=== PATIENT | male | born 1935 | race Caucasian/White ===

== ENCOUNTER → 2019-12-03 16:00 | Outpatient (BNVA) | payer MEDICARE, OTHER, SELFPAY | PROVIDERS: Family Provider Family Medicine; PCP Family Medicine; Referring Provider Nurse Practitioner Family; Visit Provider Orthopaedic Surgery | DX: M10.9 Gout, unspecified (principal) | CPT/HCPCS: 80500 ==

== ENCOUNTER 2021-04-09 10:28 | Emergency (ER) | payer MEDICARE, OTHER, SELFPAY ==
[2021-04-09 10:46] VITALS: BP 154/97; PULSE 70; RESP 18; TEMP 36.2; O2SAT 96; BMI 30.4
[2021-04-09] MEDS: lidocaine 1% INJ 20 mL INTRADERMA (11:26)
--- NOTE | 2021-04-09 11:40 | W.ED.EXTPRO ---
HPI - Extremity Problem General: Chief complaint: Extremity Problem,Nontraumatic Stated complaint: R HAND PAIN/SWELLING Time Seen by Provider: 04/09/21 10:37 History of Present Illness: HPI Narrative: Patient worried since with painful cyst to the right pointer finger. This area has been present for couple years it started growing really big about 6 months ago and the last week it is become very painful. He has been punctured by primary care provider with some whitish discharge and came out of it. MD Complaint: extremity pain Onset (ago): month(s) Pain Consistency: constant Location: right and upper extremity Severity scale (1-10): 8 Quality: aching Relieving factors: nothing Exacerbating factors: range of motion Associated symptoms: Reports no associated symptoms; Deny fever(s) Review of Systems Const: Denies: fever(s) or chills Skin/Breast: Reports: other (Large cyst in the right finger consistent with a mucous cyst. Rise from th) Psych: Denies: anxiety PFSH ED PFSH: Social History (Updated 12/03/19 @ 16:10 by Earle Kitchen LPN) Smoking and tobacco status: never smoked Alcohol intake: current Alcohol intake frequency: few times a month Procedures Abscess I/D Site: hand Side (if applicable): right Local Anesthetic: lidocaine 1% Amount of anesthesia used (mL): 2 Technique: incised with #11 blade Amount of fluid expressed (mL): 3 Irrigation: Yes Packing used?: none Course Vital Signs: Vital signs: Vital Signs Temperature 97.2 F L 04/09/21 10:46 Pulse Rate 70 04/09/21 10:46 Respiratory Rate 18 04/09/21 10:46 Blood Pressure 154/97 04/09/21 10:46 Pulse Oximetry 96 04/09/21 10:46 MDM - Extremity (Nontraumatic) MDM Narrative: Medical decision making narrative: Patient has a digital mucous cyst of the pointer finger of right hand. Made a laceration across the top of the cyst and retrieved a large amount of cystic whitish thick material. Patient was advised of what his diagnosis is the need to watch for signs and symptoms and of infection since that is arising from the joint itself. Patient says he understands this patient has appoint with his primary care provider on Saturday. Patient was instructed need to see a hand specialist to get this cyst removed. Discharge Plan Discharge Patient Disposition: Home Clinical Impression: Digital mucous cyst of finger of right hand Condition: Stable Prescriptions: New tramadol 50 mg tablet 50 mg PO TID PRN (Reason: pain) Qty: 7 RF: 0 No Action acetaminophen [Tylenol Extra Strength] 500 mg tablet 500 mg PO Q6H PRNRF: 0 albuterol sulfate 90 mcg/actuation aerosol powdr breath activated 2 inh INHALATION Q6H PRNRF: 0 alprazolam 0.25 mg tablet 0.25 mg PO TID PRNRF: 0 amlodipine 10 mg tablet 10 mg PO DAILY RF: 0 colchicine 0.6 mg capsule 0.6 mg PO BID PRNRF: 0 ergocalciferol (vitamin D2) [Vitamin D2] 1,250 mcg (50,000 unit) capsule 1,250 mcg PO .weekly RF: 0 hydralazine 25 mg tablet 25 mg PO TID RF: 0 lovastatin 40 mg tablet 40 mg PO DAILY RF: 0 metoprolol tartrate 25 mg tablet 25 mg PO BID RF: 0 tamsulosin [Flomax] 0.4 mg capsule 0.4 mg PO DAILY RF: 0 Discharge Orders: Discharge ED (Routine); Ordered 04/09/21 Ordered By: Jalil Thibodeaux Referrals: Susanne Gutierrez MD [Primary Care Provider] - Discharge Diet: Usual diet Discharge Activity: Increase activity as tolerated Activity Restrictions/Additional Instructions: Follow-up with medical provider as directed. Take medications as prescribed. Return to the ER or your medical provider if condition worsens. Please read and understand discharge instructions. If any questions ask please. Follow-up your primary care provider and see about getting referral to a specialist. Coding Level of Care Code ED Hotel Or Motel Room Service Supervisor for Sally Higuera
[2021-04-09] MEDS: TRAMadol 50 mg Tablet 100 MG PO (12:01)
[2021-04-09] MEDS: CELEcoxib 200 mg Capsule 400 MG PO (12:08)
== END 2021-04-09 12:15 | disposition home or self-care (01) ==
PROVIDERS: Emergency Provider Nurse Practitioner Family; PCP Family Medicine
DX: L72.8 Other follicular cysts of the skin and subcutaneous tissue (principal)
CPT/HCPCS: 26010; 99283

== ENCOUNTER 2021-08-24 10:27 | Inpatient (IN) | payer MEDICARE, OTHER, SELFPAY ==
[2021-08-24] VITALS (98 sets, daily range): BP systolic 161–192; BP diastolic 41–88; PULSE 0–131; RESP 0–30; TEMP 36.3–37.1; O2SAT 71–99
--- NOTE | 2021-08-24 10:54 | XR_ITS ---
WS: [id number] PORTABLE CHEST HISTORY: dyspnea/cough COMPARISON: None available. Lungs are clear and well expanded. No pleural effusion or pneumothorax. Cardiac size: Normal. Mediastinum/Aorta: Moderate atherosclerosis aorta. Degenerative changes at the humeral heads. Mild narrowing of the AC joints. XR/XR chest 1V portable [id number] IMPRESSION: Moderate atherosclerosis aorta. No pneumonia.
--- NOTE | 2021-08-24 12:09 | ECG_ITS ---
[facility] Test Date: 2021-08-24 Pat Name: Joao Hawley Department: Room: Gender: Male [employer] Library Director: : 1935 Requested By: Cheryl Damon Order Number: [id number] Maryan MD: Kecia Díaz M.D. Measurements Intervals [place] Rate: 22 P: 247 [place]: 114 QRS: 57 QRSD: 134 T: 4 QT: 658 QTc: 406 Interpretive Statements ATRIAL FLUTTER JUNCTIONAL BRADYCARDIA INTRAVENTRICULAR CONDUCTION DELAY [130+ ms QRS DURATION] Compared to ECG 01/15/2015 06:04:27 Intraventricular conduction delay now present Sinus bradycardia no longer present Ventricular premature complex(es) no longer present Left bundle-branch block no longer present Electronically Signed On 08-24-2021 21:58:12 DEPARTMENT EDITOR by Kecia Díaz M.D. [email or web address] [email or web address].[email or web address]/store/[id number]
[2021-08-24 12:21] LABS: Basophils # 0.1 10^3/uL (0.0-0.1); Basophils % 0.6 %; Eosinophils # 0.2 10^3/uL (0.0-0.8); Eosinophils % 2.6 %; Hematocrit 39.6 % (42.0-52.0); Hemoglobin 12.9 g/dL (11.7-16.6); Lymphocytes # 2.1 10^3/uL (0.8-4.8); Lymphocytes % 22.3 %; Mean Corpuscular HGB Conc 32.6 g/dL (30.0-36.0); Mean Corpuscular Hemoglobin 35.2 pg (28.0-34.0); Mean Corpuscular Volume 108.2 fl (80-94); Mean Platelet Volume 12.5 fL (7.4-10.4); Monocytes # 0.7 10^3/uL (0.2-0.9); Monocytes % 7.3 %; Neutrophils # 6.26 10^3/uL (1.8-7.7); Nucleated Red Blood Cells % 0 %; Platelet Count 197 10^3/cmm (130-400); Red Blood Count 3.66 10^6/uL (4.1-5.3); Red Cell Distribution Width 13.3 % (12.1-15.1); White Blood Count 9.3 10^3/uL (4.0-10.0)
--- NOTE | 2021-08-24 12:32 | W.ED.ARRPALP ---
HPI - Arrhythmia/Palpitations General: Chief Complaint: Abdominal Pain Stated Complaint: LOW O2, KIDNEY PAIN Time Seen by Provider: 08/24/21 12:13 History of Present Illness: 85-year-old male presents emergency room his initial complaint was flank plain flank pain and shortness of breath. However when the nurse seen him he was found to have a heart rate in the 20s and 30s. He was brought back to [facility] in the trauma bay's immediately. He denies any chest pain states he has been feeling lightheaded and dizzy for at least a week or more. He had recently had some of his blood pressure medications decreased because of hypotension he is on a beta-ceci. He has not started any new medications recently denies any chest pain at this time he does have some dizziness and lightheadedness occasional shortness of breath. Patient denies any diarrhea denies any productive cough. No anosmia or fever. MD complaint: irregular heart beat Onset (ago): day(s) (7-10) Duration: intermittent Severity: severe Context: occurred during exertion Associated symptoms: Deny anxiety, cough, diaphoresis, muscle cramps, nausea, paresthesias, pre-syncope, sense of impending doom, short of breath, syncope or vomiting Review of Systems Const: Denies: diaphoresis ENMT: Denies: throat pain, ear or mastoid pain, nasal discharge or nasal congestion Card: Reports: palpitations, irregular heart rhythm, lightheadedness and dyspnea on exertion; Denies: syncope or pre-syncope Resp: Denies: dyspnea, productive cough or non-productive cough GI: Denies: nausea or vomiting : Denies: flank pain, dysuria, urinary frequency or urinary urgency Musc: Denies: muscle cramps Skin/Breast: Denies: rash or pruritus Psych: Denies: anxiety PFS ED PFSH: Medical History (Updated 08/24/21 @ 12:34 by Moises Maza DO) A-fib COPD (chronic obstructive pulmonary disease) Gout Hyperlipidemia Hypertension Social History (Updated 12/03/19 @ 16:10 by Earle Kitchen LPN) Smoking and tobacco status: never smoked Alcohol intake: current Alcohol intake frequency: few times a month Physical Exam Const: COMMON NORMALS: no acute distress GENERAL APPEARANCE: cooperative and comfortable ORIENTATION/CONSCIOUSNESS: Yes awake, Yes oriented to person, Yes oriented to place and Yes oriented to time HENMT: COMMON NORMALS: normocephalic, atraumatic and hearing grossly normal bilaterally HEAD & SCALP: normocephalic and atraumatic Resp: COMMON NORMALS: normal respiratory effort, No retractions, No use of accessory muscles and clear to auscultation bilaterally AUSCULTATION: clear to auscultation bilaterally Cardio: RATE: bradycardic RHYTHM: abnormal rhythm irregularly irregular GI: COMMON NORMALS: Soft to palpation and No hepatosplenomegaly present AUSCULTATION: Yes normoactive bowel sounds PALPATION: Yes Soft to palpation, No Tenderness to palpation present (GI), No Guarding due to palpation present (GI) and Yes No hepatosplenomegaly present Extremity: COMMON NORMALS: normal to inspection, capillary refill normal, no clubbing, cyanosis or edema, no calf tenderness and no pedal edema Neuro: SENSORIUM/ORIENTATION: Yes oriented to person, Yes oriented to place and Yes oriented to time Skin: COMMON NORMALS: no rashes or lesions noted GENERAL SKIN EXAM: no rashes or lesions noted Course Vital Signs: Vital signs: Vital Signs Temperature 97.8 F 08/24/21 12:17 Pulse Rate 23 L 08/24/21 12:17 Respiratory Rate 16 08/24/21 12:17 Blood Pressure 172/48 08/24/21 12:17 Pulse Oximetry 99 08/24/21 12:17 MDM - Arrhythmia/Palpitations Medical Decision Making Patient profoundly bradycardic. She is almost into heart block with an underlying a flutter. However his pressure remains good his last pressures 172 systolic over 48 this was on a manual D automated cuff would not read. Of discussed Dr. Li and Dr. Mtz as well as Dr. Edwards. Dr. Casillas and Smith recommend that we hold metoprolol and admit him for observation if he does not improve after the metoprolol is cleared he will likely need a pacer if discussed with the patient. Medical Records I reviewed the patient's medical records. Lab Data I reviewed the patient's lab results. : 08/24/21 12:12 08/24/21 12:12 Radiology Impressions Chest X-Ray 08/24/21 10:54 IMPRESSION: Moderate atherosclerosis aorta. No pneumonia. Laboratory Results WBC 9.3 10^3/uL (4.0-10.0) 08/24/21 12:12 RBC 3.66 10^6/uL (4.1-5.3) L 08/24/21 12:12 Hgb 12.9 g/dL (11.7-16.6) 08/24/21 12:12 Hct 39.6 % (42.0-52.0) L 08/24/21 12:12 MCV 108.2 fl (80-94) H 08/24/21 12:12 MCH 35.2 pg (28.0-34.0) H 08/24/21 12:12 MCHC 32.6 g/dL (30.0-36.0) 08/24/21 12:12 RDW 13.3 % (12.1-15.1) 08/24/21 12:12 Plt Count 197 10^3/cmm (130-400) 08/24/21 12:12 MPV 12.5 fL (7.4-10.4) H 08/24/21 12:12 Neut % (Auto) 67.0 % 08/24/21 12:12 Lymph % (Auto) 22.3 % 08/24/21 12:12 [place] % (Auto) 7.3 % 08/24/21 12:12 Eos % (Auto) 2.6 % 08/24/21 12:12 Baso % (Auto) 0.6 % 08/24/21 12:12 Neut # (Auto) 6.26 10^3/uL (1.8-7.7) 08/24/21 12:12 Lymph # (Auto) 2.1 10^3/uL (0.8-4.8) 08/24/21 12:12 Roane # (Auto) 0.7 10^3/uL (0.2-0.9) 08/24/21 12:12 Eos # (Auto) 0.2 10^3/uL (0.0-0.8) 08/24/21 12:12 Baso # (Auto) 0.1 10^3/uL (0.0-0.1) 08/24/21 12:12 Nucleated RBC % (auto) 0 % 08/24/21 12:12 Nucleated RBCs # 0.0 /100WBC 08/24/21 12:12 Sodium 139 mmol/L (136-145) 08/24/21 12:12 Potassium 5.6 mmol/L (3.5-5.1) H 08/24/21 12:12 Chloride 107 mmol/L (98-107) 08/24/21 12:12 Carbon Dioxide 16 mmol/L (22-29) L 08/24/21 12:12 Anion Gap 21.6 (5-19) H 08/24/21 12:12 BUN 35 mg/dL (8-23) H 08/24/21 12:12 Creatinine 2.3 mg/dL (0.7-1.2) H 08/24/21 12:12 GFR Calculation Not Reportable 08/24/21 12:12 Glucose 93 mg/dL (65-115) 08/24/21 12:12 Calculated Osmolality 296 mOsm/kg (285-295) H 08/24/21 12:12 Calcium 10.0 mg/dL (8.5-10.5) 08/24/21 12:12 Total Bilirubin 0.5 mg/dL (0.15-1.2) 08/24/21 12:12 AST 21 U/L (0-40) 08/24/21 12:12 ALT 23 U/L (0-41) 08/24/21 12:12 Alkaline Phosphatase 114 IU/L (40-130) 08/24/21 12:12 Troponin T Baseline 43 ng/L (0-15) H 08/24/21 12:12 Total Protein 7.1 g/dL (6.6-8.7) 08/24/21 12:12 Albumin 4.1 g/dL (3.5-5.2) 08/24/21 12:12 Globulin 3.0 g/dL (1.3-4.6) 08/24/21 12:12 TSH 2.58 uIU/mL (0.27-4.20) 08/24/21 12:12 Free T4 1.36 ng/dL (0.82-1.77) 08/24/21 12:12 Discharge Plan Discharge Condition: Stable Prescriptions: No Action albuterol sulfate 90 mcg/actuation aerosol powdr breath activated 2 inh INHALATION Q6H PRN (Reason: Shortness Of Breath) 0RF alprazolam 0.25 mg tablet 0.25 mg PO BEDTIME PRN (Reason: Anxiety) 0RF amlodipine 10 mg tablet 5 mg PO DAILY 0RF colchicine 0.6 mg capsule 0.6 mg PO BID PRN (Reason: gout) 0RF ergocalciferol (vitamin D2) [Vitamin D2] 1,250 mcg (50,000 unit) capsule 1,250 mcg PO Q7D 0RF hydralazine 25 mg tablet 25 mg PO BID 0RF lovastatin 40 mg tablet 40 mg PO DAILY 0RF metoprolol tartrate 25 mg tablet 25 mg PO BID 0RF tramadol 50 mg tablet 50 mg PO TID PRN (Reason: pain) Qty: 7 0RF Referrals: Susanne Gutierrez MD [Primary Care Provider] - Coding Level of Care Code ED Electrode Cleaning Machine Operator for Chg Fwd Exam Detailed
[2021-08-24 12:59] LABS: Alanine Aminotransferase 23 U/L (0-41); Albumin Level 4.1 g/dL (3.5-5.2); Alkaline Phosphatase 114 IU/L (40-130); Anion Gap 21.6 (5-19); Aspartate Amino Transferase 21 U/L (0-40); Blood Urea Nitrogen 35 mg/dL (8-23); Carbon Dioxide 16 mmol/L (22-29); Chloride 107 mmol/L (98-107); Glucose 93 mg/dL (65-115); Osmolality Calculated 296 mOsm/kg (285-295); Potassium 5.6 mmol/L (3.5-5.1); Sodium 139 mmol/L (136-145); Thyroid Stimulating Hormone 2.58 uIU/mL (0.27-4.20); Total Bilirubin 0.5 mg/dL (0.15-1.2); Total Protein 7.1 g/dL (6.6-8.7)
[2021-08-24 13:22] LABS: Free T4 Free Thyroxine 1.36 ng/dL (0.82-1.77)
[2021-08-24 13:23] LABS: Troponin(5th) Baseline 43 ng/L (0-15)
--- NOTE | 2021-08-24 14:09 | ECG_ITS ---
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 Measurements Intervals [place] Rate: 20 P: [place]: QRS: 78 QRSD: 150 T: 45 QT: 674 QTc: 391 Interpretive Statements Atrial flutter with a high degree AV block, ventricular rate of 20 bpm INTRAVENTRICULAR CONDUCTION DELAY [130+ ms QRS DURATION] Electronically Signed On 08-25-2021 11:32:28 MAINTENANCE TECHNICIAN 2ND SHIFT by Abdiel Mtz M.D. [email or web address] health st. joseph warren hospitalLa Guía del Día/store/[id number]
[2021-08-24 14:24] LABS: Troponin 5 2HR 39.37 ng/L (0-15)
[2021-08-24 14:25] LABS: Troponin 5 2HR Delta -3.63 ABS# (0-10)
--- NOTE | 2021-08-24 15:11 | PM.HP ---
Providers/Chief Complaint Primary Care Provider: Susanne Gutierrez MD Chief Complaint: LOW O2, KIDNEY PAIN History of Present Illness Joao Hawley is a 85 year old male who has history of atrial flutter, on metoprolol at home, lives alone, no previous history of MD, CHF or coronary disease presented to the hospital with chief complaint of fatigue and presyncopal event. Patient is stating that for last 1-2 month he has been having flank pains bilaterally, he has noticed lack of energy and fatigue he has been experiencing dizzy spells with shortness of breath on exertion, no active chest pain, nausea, vomiting or diarrhea. Because of his worsening flank pain he decided to come to the hospital for further evaluation. He kept taking his metoprolol for last 2 months, in the ER he was diagnosed with atrial flutter heart rate in 20s however systolic blood pressure in 170s, he was awake and alert no active chest pain confusion or shortness of breath, for symptomatic bradycardia atropine was given by Dr. Mtz, he will be going for temporary pacemaker placement, in the ER I prescribed calcium gluconate and a dose of glucagon to reverse the effect of metoprolol which did not improve his heart rate to much extent. Patient is stating that he has history of atrial flutter however he refused oral anticoagulating agent because he loves to casillas and he did not want any significant injury while on a blood thinner. Review of Systems Const: Reports: chills, body aches and fatigue Eyes: Denies: change in vision ENMT: Denies: throat pain Card: Reports: irregular heart rhythm and pre-syncope Resp: Reports: dyspnea GI: Denies: abdominal pain : Denies: flank pain Musc: Denies: neck pain Skin/Breast: Denies: rash Neuro: Denies: headache(s) Psych: Denies: anxiety Endo: Denies: polyuria Michael/Lymph: Denies: easy bruising All/Imm: Denies: urticaria Medications/Allergies Home Medications Medication Instructions Recorded Confirmed Last Taken Type albuterol sulfate 90 mcg/actuation 2 inh INHALATION Q6H PRN 12/03/19 08/24/21 Unknown History breath activated powder inhaler alprazolam 0.25 mg tablet 0.25 mg PO BEDTIME PRN 12/03/19 08/24/21 08/20/21 History amlodipine 10 mg tablet 5 mg PO DAILY 12/03/19 08/24/21 08/23/21 History colchicine 0.6 mg capsule 0.6 mg PO BID PRN 12/03/19 08/24/21 Unknown History ergocalciferol (vitamin D2) 1,250 1,250 mcg PO Q7D cap 12/03/19 08/24/21 Unknown History mcg (50,000 unit) capsule (Vitamin D2) hydralazine 25 mg tablet 25 mg PO BID 12/03/19 08/24/21 08/23/21 History lovastatin 40 mg tablet 40 mg PO DAILY 12/03/19 08/24/21 08/23/21 History metoprolol tartrate 25 mg tablet 25 mg PO BID 12/03/19 08/24/21 08/23/21 History tramadol 50 mg tablet 50 mg PO TID PRN #7 tab 04/09/21 08/24/21 Unknown Rx Allergies Allergy/AdvReac Type Severity Reaction Status Date / Time hydrochlorothiazide Allergy unknown Verified 08/24/21 12:19 PFSH Acute PFSH: Medical History A-fib COPD (chronic obstructive pulmonary disease) Gout Hyperlipidemia Hypertension Surgical History History of appendectomy Previous back surgery Family History Other Family history non-contributory Social History Smoking and tobacco status: never smoked Alcohol intake: current Alcohol intake frequency: few times a month Substance/Drug Use: never Lives independently: Yes Housing: House Vitals/I&O/Wt Last Vital Signs Temp 97.8 F 08/24/21 12:17 Pulse 23 L 08/24/21 12:17 Resp 16 08/24/21 12:17 BP 172/48 08/24/21 12:17 Pulse Ox 99 08/24/21 12:17 Physical Exam Narrative: EXAM NARRATIVE: Very pleasant elderly male Saturating well on room air Abdomen soft, flank distention severe tenderness positive No signs of edema Awake and alert Nonfocal neuro exam Saturating well on room air No active chest pain S1, S2 variable Appropriate mood and affect Data : 08/24/21 12:12 08/24/21 12:12 A&P Assessment and plan (1) Pre-syncope: Status: Acute (2) Bradycardia: Status: Acute (3) LYNETTE (acute kidney injury): Status: Acute (4) Hyperkalemia: Status: Acute Plan Symptomatic bradycardia Patient is going for transvenous pacemaker by Dr. Mtz Did not respond to atropine calcium gluconate or glucagon dose History of atrial flutter Not on anticoagulating agent, patient refused anticoagulating agent in the past Monitor in ICU Check echo patient has cardiomegaly Hyperkalemia: He was given calcium gluconate and Kayexalate CT abdomen pelvis did not show hydronephrosis LYNETTE: Perinephric stranding noted, bilateral, will request UA, Start him on Zosyn renally dosed Pyelonephritis Bladder after obstruction concern, start tamsulosin, place Cunningham catheter Bilateral renal masses consistent with cyst, Will need contrast study once creatinine is better Hypertension: Hold antihypertensive for now Resume after pacemaker placement TSH normal, Full code Cardiac diet after pacemaker placement Patient had a tick bite 6 months ago, will check tick panel Umbilical hernia no signs of obstruction, fat-containing, Attestations Medical Necessity Statement*: More than 2 midnights anticipated Time Spent in Patient Care: 35mins Coding Level of Care Code Acute Asphalt Tar And Gravel Roofer for Sally Higuera Diagnoses Pre-syncope R55 Bradycardia R00.1 LNYETTE (acute kidney injury) N17.9 Hyperkalemia E87.5
--- NOTE | 2021-08-24 15:14 | CT_ITS ---
WS: [id number] CT ABDOMEN AND PELVIS NONCONTRAST HISTORY: acacia TECHNIQUE: Imaging performed through the abdomen and pelvis. Coronal and sagittal reformats are submi tted. All CT scans at [facility] use at least one of these dose optimization techniques: auto mated exposure control; mA and/or kV adjustment per patient size (includes targeted exams where dose is matched to clinical indication); or iterative reconstruction. DLP: 1918.27 mGy.cm COMPARISON: None available. Lower thorax: Mild interstitial thickening in the lung bases. Moderate cardiomegaly. Small hiatal her bradley. Liver: Normal size liver with granulomata. Gallbladder: Normally distended gallbladder with calcifications. No adjacent inflammation. No bile du ct dilatation. Pancreas: Normal size and attenuation. Normal pancreatic duct. No pancreatitis or mass. Spleen: Normal size with granulomata. Adrenal glands: Normal. No mass. Right kidney: Moderate perinephric stranding. No obstruction. Numerous cystic masses. No calcificatio ns. Left kidney: Moderate perinephric stranding. Several low-attenuation masses throughout the kidney. No obstruction. Aorta: Mild atherosclerosis abdominal aorta with no aneurysm. No free fluid, intraperitoneal air or significant lymphadenopathy. GI tract: Prior appendectomy. Numerous diverticula throughout the sigmoid colon. No evidence for acut e diverticulitis. There is no obstruction. Abdominal wall: Small umbilical hernia contains fat only. Pelvis: Prostate gland is enlarged. Patent inguinal canals. Osseous structures: Moderate spondylitic changes throughout the lower thoracic and lumbar spines. No osteoblastic or osteolytic bone disease. CT/CT abdomen pelvis wo con [id number] IMPRESSION: 1. Moderate bilateral perinephric stranding with no obstruction. 2. Bilateral renal low-attenuation masses. These may be cysts but cannot furth er characterize on this unenhanced study. 3. Cholelithiasis without acute cholecystitis. 4. Moderate cardiomegaly. 5. Prior appendectomy. 6. Study is limited and compromised by motion.
[2021-08-24] MEDS: sodium chloride 0.9% 1,000 ML 75 ML IV (15:58)
[2021-08-24] MEDS: calcium gluconate 0.9% NaCL 1 GM/50 ML PREMIX IV (15:58)
--- NOTE | 2021-08-24 18:08 | PC.NURSE ---
PATIENT IS 98KG- 1745-DOPAMINE STARTED AT 5MCG/KG/MIN, 1753-0.5MG ATROPINE IV GIVEN WITH DR MCLEOD AT THE BEDSIDE 1758- DR MCLEOD ADVISED TO STOP DOPAMINE AND GIVE 0.5MG ATROPINE IV AND THAT PATIENT IS GOING TO THE CUSTODIAL SUPERVISOR FOR A TEMPORARY PACEMAKER INSERTION- DR MCLEOD IS CONTACTING TEAM 1809- THIS RN SPOKE WITH ZEINAB ALEXANDER- PATIENT BROTHER- UPDATED ON CURRENT PLAN,
--- NOTE | 2021-08-24 18:09 | ECG_ITS ---
[facility] Test Date: 2021-08-24 Pat Name: Joao Hawley Department: Room: ED Gender: Male Mat Maker: : 1935 Requested By: Cheryl Damon Order Number: [id number] Maryan MD: Abdiel Mtz M.D. Measurements Intervals [place] Rate: 20 P: OR: QRS: 85 QRSD: 134 T: 35 QT: 621 QTc: 361 Interpretive Statements Atrial flutter with very slow ventricular response rate. 5-second pause Nonspecific IVCD CRITICAL TEST RESULT Compared to ECG 08/24/2021 14:38:15 Idioventricular rhythm now present Sinus rhythm no longer present Electronically Signed On 08-25-2021 11:34:00 IT TELECOM TECHNICIAN by Abdiel Mtz M.D. [id number]
--- NOTE | 2021-08-24 18:11 | P.CONIM_ITS ---
Providers/Reason For Consult Consulting Physician/Specialty*: LEXA Mtz MD/cardiology Reason for Consult*: Patient with bradycardia/atrial flutter Requesting Physician: Dr. Reyes/Dr. Edwards Attending Physician: Cristino Edwards MD Primary Care Provider: Susanne Gutierrez MD History of Present Illness History of Present Illness Joao Hawley is a 85 year old male with a longstanding history of hypertension and cardiac arrhythmia, he is present with complaints of generalized weakness for the last 2 months. He has been having some episodes of dizziness. No syncopal episodes. He was found to have heart rate in the 20s an d 30s in the emergency room. Apparently he did not have any chest pain or unusual shortness of breath. His blood pressure was found to be in the 200 range. During the emergency room stay, he started developing episodes of near syncope. His heart rate was in the low 20s at that time. He was given IV atropine. Atropine raised the heart rate in the 30s but again went back down into the 20s. Because of his symptomatic bradycardia, it was decided to put a transvenous temporary pacemaker. This was discussed with the patient in detail which he understood well and consented to proceed. He has no previous history for any coronary artery disease, myocardial infarction or congestive heart failure. 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 He has no history for CVA. He refused oral anticoagulation because of the history of easy bruising. He has a history of gouty arthritis. No other specific complaints. The patient has been taking metoprolol 25 mg p.o. twice daily. It is not clear at this time as to how long he been taking this medication. Review of Systems Narrative: CONSTITUTIONAL: No fever or chills. Generalized weakness/tiredness/episodes of dizziness and near syncope EYES: No blurring of vision or other visual disturbances lately. ENT: He has some problems with the left ear for which he is seeing an ENT specialist CARDIOVASCULAR: As mentioned above. RESPIRATORY: No significant cough. GASTROINTESTINAL: No hematemesis or melena. GENITOURINARY: No dysuria or hematuria. INTEGUMENTARY: No skin rashes or history of skin cancer. NEURO: No transient ischemic attacks or amaurosis. PSYCHIATRIC: No history of psychosis or major depression. HEMATOLOGIC: No bleeding disorders or significant anemia. ENDOCRINE: No history of polyuria or polydipsia. MUSCULOSKELETAL: No recent joint pain or swelling. ALLERGY/IMMUNOLOGY: As mentioned above. Medications/Allergies Home Medications Medication Instructions Recorded Confirmed Last Taken Type albuterol sulfate 90 mcg/actuation 2 inh INHALATION Q6H PRN 12/03/19 08/24/21 Unknown History breath activated powder inhaler alprazolam 0.25 mg tablet 0.25 mg PO BEDTIME PRN 12/03/19 08/24/21 08/20/21 History amlodipine 10 mg tablet 5 mg PO DAILY 12/03/19 08/24/21 08/23/21 History colchicine 0.6 mg capsule 0.6 mg PO BID PRN 12/03/19 08/24/21 Unknown History ergocalciferol (vitamin D2) 1,250 1,250 mcg PO Q7D cap 12/03/19 08/24/21 Unknow n History mcg (50,000 unit) capsule (Vitamin D2) hydralazine 25 mg tablet 25 mg PO BID 12/03/19 08/24/21 08/23/21 History lovastatin 40 mg tablet 40 mg PO DAILY 12/03/19 08/24/21 08/23/21 History metoprolol tartrate 25 mg tablet 25 mg PO BID 12/03/19 08/24/21 08/23/21 History tramadol 50 mg tablet 50 mg PO TID PRN #7 tab 04/09/21 08/24/21 Unknown Rx Allergies Allergy/AdvReac Type Severity Reaction Status Date / Time hydrochlorothiazide Allergy unknown Verified 08/24/21 12:19 Current Medications Generic Name Dose Route Start Last Admin Trade Name Freq PRN Reason Stop Dose Admin Sodium Chloride 1,000 mls @ 75 mls/hr 08/24/21 15:47 08/24/21 15:58 Sodium Chloride 0.9% IV 75 mls/hr .[id number] GIANA Administration PFSH Acute PFSH: Medical History A-fib COPD (chronic obstructive pulmonary disease) Gout Hyperlipidemia Hypertension Surgical History (Updated 08/24/21 @ 15:12 by Cristino Edwards MD) History of appendectomy Previous back surgery Family History (Updated 08/24/21 @ 15:13 by Cristino Edwards MD) Other Family history non-contributory Social History (Updated 08/24/21 @ 15:13 by Cristino Edwards MD) Smoking and tobacco status: never smoked Alcohol intake: current Alcohol intake frequency: few times a month Substance/Drug Use: never Lives independently: Yes Housing: House Vitals/I&O/Wt Last Vital Signs Temp 97.3 F L 08/24/21 16:04 Pulse 20 L 08/24/21 16:00 Resp 7 L 08/24/21 16:00 BP 170/78 08/24/21 16:04 Pulse Ox 97 08/24/21 16:00 Weight last 48 hrs Weight 216 lb 0.848 oz Physical Exam Narrative: EXAM NARRATIVE: GENERAL: The patient is alert and oriented times three. Not in any acute distress. Appears somewhat lethargic. HEENT: No significant pallor, icterus or lymphadenopathy.Oral cavity: There are no mucous membrane lesions. NECK: Trachea appears to be central. No masses noted. No JVD or thyromegaly appreciated. RESPIRATORY: Chest is symmetrical. No intercostals muscle retraction or any accessory muscle activation. There is no chest wall tenderness. Breath sounds are heard bilaterally. No rales or rhonchi heard. No evidence of any consolidation. BREASTS: Deferred. HEART: First heart sound is variable. Second hear sound is normal. Short systolic murmur in the left renal border. No diastolic murmurs. ABDOMEN: No vessel pulsations or distention. No tenderness. No organomegaly appreciated. Bowel sounds are normally heard. : Deferred. RECTAL: Deferred. LYMPHATIC: No lymphadenopathy noted in the neck or groin. EXTREMITIES: No edema or cyanosis. No clubbing. Peripheral pulses are palpated in fairly good volume and amplitude MUSCULOSKELETAL: No acute joint deformities or swelling SKIN: There are no significant rashes or ecchymosis NEUROPSYCHIATRIC: The patient is alert and oriented x3. No focal motor deficits. Has some amount of lethargy. Data : 08/24/21 12:12 08/24/21 12:12 Other Labs: Laboratory Last Values WBC 9.3 10^3/uL (4.0-10.0) 08/24/21 12:12 RBC 3.66 10^6/uL (4.1-5.3) L 08/24/21 12:12 Hgb 12.9 g/dL (11.7-16.6) 08/24/21 12:12 Hct 39.6 % (42.0-52.0) L 08/24/21 12:12 MCV 108.2 fl (80-94) H 08/24/21 12:12 MCH 35.2 pg (28.0-34.0) H 08/24/21 12:12 MCHC 32.6 g/dL (30.0-36.0) 08/24/21 12:12 RDW 13.3 % (12.1-15.1) 08/24/21 12:12 Plt Count 197 10^3/cmm (130-400) 08/24/21 12:12 MPV 12.5 fL (7.4-10.4) H 08/24/21 12:12 Neut % (Auto) 67.0 % 08/24/21 12:12 Lymph % (Auto) 22.3 % 08/24/21 12:12 Stanly % (Auto) 7.3 % 08/24/21 12:12 Eos % (Auto) 2.6 % 08/24/21 12:12 Baso % (Auto) 0.6 % 08/24/21 12:12 Neut # (Auto) 6.26 10^3/uL (1.8-7.7) 08/24/21 12:12 Lymph # (Auto) 2.1 10^3/uL (0.8-4.8) 08/24/21 12:12 Stanly # (Auto) 0.7 10^3/uL (0.2-0.9) 08/24/21 12:12 Eos # (Auto) 0.2 10^3/uL (0.0-0.8) 08/24/21 12:12 Baso # (Auto) 0.1 10^3/uL (0.0-0.1) 08/24/21 12:12 Nucleated RBC % (auto) 0 % 08/24/21 12:12 Nucleated RBCs # 0.0 /100WBC 08/24/21 12:12 Sodium 139 mmol/L (136-145) 08/24/21 12:12 Potassium 5.6 mmol/L (3.5-5.1) H 08/24/21 12:12 Chloride 107 mmol/L (98-107) 08/24/21 12:12 Carbon Dioxide 16 mmol/L (22-29) L 08/24/21 12:12 Anion Gap 21.6 (5-19) H 08/24/21 12:12 BUN 35 mg/dL (8-23) H 08/24/21 12:12 Creatinine 2.3 mg/dL (0.7-1.2) H 08/24/21 12:12 GFR Calculation Not Reportable 08/24/21 12:12 Glucose 93 mg/dL (65-115) 08/24/21 12:12 Calculated Osmolality 296 mOsm/kg (285-295) H 08/24/21 12:12 Calcium 10.0 mg/dL (8.5-10.5) 08/24/21 12:12 Total Bilirubin 0.5 mg/dL (0.15-1.2) 08/24/21 12:12 AST 21 U/L (0-40) 08/24/21 12:12 ALT 23 U/L (0-41) 08/24/21 12:12 Alkaline Phosphatase 114 IU/L (40-130) 08/24/21 12:12 Troponin T Baseline 43 ng/L (0-15) H 08/24/21 12:12 Troponin T 120 Minute 39.37 ng/L (0-15) H 08/24/21 14:01 Delta Troponin T -3.63 ABS# (0-10) L 08/24/21 14:01 Total Protein 7.1 g/dL (6.6-8.7) 08/24/21 12:12 Albumin 4.1 g/dL (3.5-5.2) 08/24/21 12:12 Globulin 3.0 g/dL (1.3-4.6) 08/24/21 12:12 TSH 2.58 uIU/mL (0.27-4.20) 08/24/21 12:12 Free T4 1.36 ng/dL (0.82-1.77) 08/24/21 12:12 EKG 1: My Interpretation: Atrial flutter flutter with ventricular rate of 22 bpm. Nonspecific IVCD. Diffuse nonspecific T wave changes. EKG computer-generated impression: Chest X-Ray 08/24/21 10:54 IMPRESSION: Moderate atherosclerosis aorta. No pneumonia. Abdomen/Pelvis CT 08/24/21 15:14 IMPRESSION: 1. Moderate bilateral perinephric stranding with no obstruction. 2. Bilateral renal low-attenuation masses. These may be cysts but cannot further characterize on this unenhanced study. 3. Cholelithiasis without acute cholecystitis. 4. Moderate cardiomegaly. 5. Prior appendectomy. 6. Study is limited and compromised by motion. EKG 2: My Interpretation: Atrial flutter with a rate of 20 bpm. Nonspecific IVCD. Other EKG shows prolonged pause of 5 seconds EKG computer-generated impression: Chest X-Ray 08/24/21 10:54 IMPRESSION: Moderate atherosclerosis aorta. No pneumonia. Abdomen/Pelvis CT 08/24/21 15:14 IMPRESSION: 1. Moderate bilateral perinephric stranding with no obstruction. 2. Bilateral renal low-attenuation masses. These may be cysts but cannot further characterize on this unenhanced study. 3. Cholelithiasis without acute cholecystitis. 4. Moderate cardiomegaly. 5. Prior appendectomy. 6. Study is limited and compromised by motion. A&P Assessment and plan (1) Symptomatic bradycardia: Patient is not responding to IV atropine. At this point, it may be appropriate to go ahead with a temporary transvenous pacemaker. Patient need to be watched on the monitor for 24 to 48 hours. If he continues to stay in the bradycardic rate, requires a permanent pacemaker insertion. This was discussed with the patient in detail which he understood well. The risk of bleeding, infection, myocardial perforation and other complications were explained. Patient consented to proceed. Status: Acute (2) Atrial flutter by electrocardiogram: Patient apparently refused long-term oral anticoagulation in the past. May start him on IV heparin after the temporary pacer insertion. We also may do an echocardiogram to evaluate the LV function Status: Acute (3) Hyperkalemia: We do not have a previous lab results to compare. Status: Acute (4) LYNETTE (acute kidney injury): The etiology is not clear. Patient was found to be hypertensive in the emergency room. Status: Acute (5) Accelerated hypertension: We may consider starting the patient on antihypertensive medication, after the pacemaker insertion. Status: Acute Plan Based on the patient's clinical progress, further recommendations will be made. Thank for the opportunity to eval this patient and make the recommendation. Most likely this patient may end up and requiring a permanent pacemaker implantation. Coding Level of Care Code Acute Grant Manager for Chg Fwd History Detailed Exam Detailed Medical Decision Making High Complexity Diagnoses Atrial flutter by electrocardiogram I48.92 Symptomatic bradycardia R00.1 Hyperkalemia E87.5 LYNETTE (acute kidney injury) N17.9 Accelerated hypertension I10
--- NOTE | 2021-08-24 18:26 | W.PM.OPSUD ---
Surgery/Procedure H&P Update DATE OF PROCEDURE: August 24, 2021 DATE H&P PERFORMED: 08/24/21 CHANGES TO PREVIOUS DOCUMENTATION: None PRIMARY INDICATION FOR PROCEDURE: Symptomatic bradycardia PLANNED PROCEDURE: Transvenous temporary pacemaker insertion OTHER PERTINENT EXAM FINDINGS: Patient is alert and oriented x3. Variable S1. Normal S2. Breath sounds are heard bilaterally. No extremity edema or cyanosis. AIRWAY EVAL/ANESTHESIA PLAN: normal airway, see other exam findings, ASA III, Monitored Anesthesia, Local Anesthesia, Risks, benefits & alternatives of sedation and/or procedure discussed and Patient agrees to continue as planned
--- NOTE | 2021-08-24 19:17 | PM.OP ---
Operative Report Date of procedure: August 24, 2021 Pre-op diagnosis: Symptomatic bradycardia/atrial flutter Post-op diagnosis: Same Procedure done: Transvenous temporary pacemaker insertion Brief History: This is an 85-year-old white male with a history of chronic atrial arrhythmia and hypertension, presenting with generalized weakness for 2 months with recent worsening over the last 1 week. He was found to be in atrial flutter with a ventricular rate of around 20 bpm he had several episodes of near syncope in the ER. For further management of his condition, he required a transvenous temporary pacemaker. IV atropine was given, total of 2 mg. The heart rate temporarily went up to the thirties and then again dropped back down into the twenties. Procedure: PROCEDURE: Transvenous temporary pacemaker insertion LOCATION: Cardiac catheterization lab PRE-OP DIAGNOSIS: Symptomatic bradycardia/near syncope POSTOPERATIVE DIAGNOSES: Same. COMPLICATIONS: None. I discussed with the patient, the procedure and the possible complications including hematoma, vascular injury, infection, myocardial perforation and other concomitant complications. This was understood well by the patient, who consented to proceed. PROCEDURE DESCRIPTION: Patient was brought to the [facility]. The right and the left side of the groin were prepped and draped in a sterile fashion. 1% Xylocaine was used as a local anesthetic agent. The right femoral venous access was obtained using a micropuncture needle system. A 6-Mauritanian venous sheath was introduced into the femoral vein over a guidewire. A 5-Mauritanian temporary balloon-tipped pacing wire over a sleeve was advanced through the venous sheath, under fluoroscopic guidance. The temporary pacing wire was placed near to the right ventricular apex. Good pacing threshold was obtained. The venous sheath was secured in place by suturing to the skin with 0 Surgilon. The pacemaker wire also was secured to the skin by suturing with 0 Surgilon, over the sleeve. A sterile dressing was applied at the access site. Patient tolerated the procedure very well and there were no complications. PACEMAKER SETTINGS: The pacemaker was set for a backup rate of 60 with an output of 3 volts and on a demand mode. The pacing threshold was less than 0.5 V DISPOSITION: Patient was transferred to the Intensive Care Unit in stable condition.
--- NOTE | 2021-08-24 19:24 | PC.NURSE ---
Pt. brought to ER after temporary pacemaker placed. I have been told that the pt. has a room in ICU that is being cleaned and will go to that room as soon as possible. The recovery nurse from the surgery states that the patients settings on the temporary pacemaker are set and the patient is doing well, I have explained that I am rooming patient until he goes to ICU and the settings will not be adjusted by me. . Pt. was ordered hydralizine for hypertension that the nurse forgot to give before transfer. The pateints blood pressure on arrival to ER is 164/58.
[2021-08-24] MEDS: lidocaine 2% Urojet 20 mL TOPICAL (20:16)
[2021-08-24] MEDS: piperacillin-tazobactam 3.375 GM in sodium chloride 0.9% (plus) 50 ML IV (20:17)
[2021-08-24 20:37] LABS: Glucose Urine UA Norm (Normal); Protein Urine 3+ (Negative); Urine Appearance Clear (CLEAR); Urine Color Yellow (Yellow); pH Urine 5 (5-7)
[2021-08-24 20:37] LABS: Potassium 5.3 mmol/L (3.5-5.1)
[2021-08-24 20:38] LABS: Add Urine Microscopic? YES; Bacteria Urine 1+ /hpf; Bilirubin Urine 1+ (Negative); Blood Urine 2+ (Negative); Ketones Urine Negative (Negative); Leukocyte Esterase Urine Negative (Negative); Mucus Urine 1+ /hpf; Nitrate Urine Negative (Negative); RBC Urine 0-4 /hpf (0-2); Squamous Epithelial Cell Urine 0-4 /hpf (0-5); Urobilinogen Urine Norm (Negative)
[2021-08-24 21:02] LABS: Estmated Average Glucose 111; Hemoglobin A1C 5.5 % (4.0-6.0)
--- NOTE | 2021-08-24 23:15 | PC.NURSE ---
Admission Note Patient brought to ICU 5 by SENIOR PATROL AGENT. Patient transferred from [facility] to ICU bed x3 assist. Patient tolerated well. Patient placed on VS monitoring and telemetry. All vital signs are stable at this time. Right groin temporary pacer noted. Site is clean, dry, and intact with no bleeding, oozing, or hematoma noted. Extensive education provided to the patient on the importance of keeping his leg straight. Patient verbalizes understanding. He is complaining of severe burning in his bladder that he says is from his catheter. Patient states that he is allergic to latex and asks that his webster catheter be removed until the burning stops and then a latex free catheter could be inserted. Webster removed and urinal placed at the bedside. Admission completed.
[2021-08-25] VITALS (92 sets, daily range): BP systolic 108–203; BP diastolic 48–115; PULSE 42–96; RESP 15–34; O2SAT 93–100
--- NOTE | 2021-08-25 | SCC_ITS ---
Procedure done: Single lead pacemaker placement 259.6 seconds of fluoroscopic guidance, for a cumulative dose of 57.31 mGy, was provided to Dr. Berger by the radiology department. C-arm images of the chest were saved for the patient's permanent record. [facility]
[2021-08-25] MEDS: sodium chloride 0.9% 1,000 ML 75 ML IV (02:12)
[2021-08-25] MEDS: piperacillin-tazobactam 3.375 GM in sodium chloride 0.9% (plus) 50 ML IV (05:15)
[2021-08-25] MEDS: acetaminophen 500 mg Tablet PO (05:18)
[2021-08-25 05:27] LABS: Basophils # 0.1 10^3/uL (0.0-0.1); Basophils % 0.5 %; Eosinophils # 0.3 10^3/uL (0.0-0.8); Eosinophils % 2.7 %; Hematocrit 38.7 % (42.0-52.0); Hemoglobin 12.2 g/dL (11.7-16.6); Lymphocytes # 1.3 10^3/uL (0.8-4.8); Lymphocytes % 14.1 %; Mean Corpuscular HGB Conc 31.5 g/dL (30.0-36.0); Mean Corpuscular Hemoglobin 34.6 pg (28.0-34.0); Mean Corpuscular Volume 109.6 fl (80-94); Mean Platelet Volume 12.8 fL (7.4-10.4); Monocytes # 0.8 10^3/uL (0.2-0.9); Monocytes % 8.3 %; Neutrophils # 6.87 10^3/uL (1.8-7.7); Nucleated Red Blood Cells % 0 %; Platelet Count 157 10^3/cmm (130-400); Red Blood Count 3.53 10^6/uL (4.1-5.3); Red Cell Distribution Width 13.2 % (12.1-15.1); White Blood Count 9.3 10^3/uL (4.0-10.0)
--- NOTE | 2021-08-25 05:44 | PC.NURSE ---
Shift note Frequent safety and comfort rounds continued throughout the shift. Orders and nursing care completed as indicated. Patient monitored for response to intervention and treatment(s). Education provided on temporary pacemaker. Patient verbalized understanding. Right groin venous site clean and dry. No bleeding, oozing, or hematoma noted. Pacer continues to capture well. Overall, patient's night was uneventful.
[2021-08-25 05:53] LABS: Alanine Aminotransferase 22 U/L (0-41); Albumin Level 3.6 g/dL (3.5-5.2); Alkaline Phosphatase 114 IU/L (40-130); Anion Gap 19.6 (5-19); Aspartate Amino Transferase 27 U/L (0-40); Blood Urea Nitrogen 37 mg/dL (8-23); Calcium 8.6 mg/dL (8.5-10.5); Carbon Dioxide 15 mmol/L (22-29); Chloride 108 mmol/L (98-107); Glucose 76 mg/dL (65-115); Osmolality Calculated 293 mOsm/kg (285-295); Potassium 4.6 mmol/L (3.5-5.1); Sodium 138 mmol/L (136-145); Total Bilirubin 0.8 mg/dL (0.15-1.2); Total Protein 6.6 g/dL (6.6-8.7)
--- NOTE | 2021-08-25 06:00 | USCV_ITS ---
Joao Hawley Age: 85 Gender: M : 1935 Exam Date: 08/25/2021 06:48 Ordering Phys: Cristino Edwards MD Technologist: ARBEN [place]am [place] [facility] [place]: bradycardia. Has temporary pacer. BP: 168 / 75 HR: 59 Rhythm: Sinus Technical Quality: MEASUREMENTS (Male / Female) Normal Values 2D ECHO LV Diastolic Diameter PLAX 4.2 cm 4.2 - 5.9 / 3.9 - 5.3 cm LV Systolic Diameter PLAX 2.7 cm IVS Diastolic Thickness 1.4 cm 0.6 - 1.0 / 0.6 - 0.9 cm IVS Systolic Thickness 1.5 cm LVPW Diastolic Thickness 1.0 cm 0.6 - 1.0 / 0.6 - 0.9 cm LVPW Systolic Thickness 1.8 cm LVOT Diameter 2.1 cm LV Ejection Fraction 2D Teich 65.0 % LV Ejection Fraction MOD 2C 76.5 % LV Ejection Fraction 2C AL 79.2 % LA Diameter 4.7 cm LA Width 4.1 cm LA Height 6.6 cm RA Width 4.4 cm RA Height 6.2 cm Aorta at Sinotubular Diameter 3.3 cm M-MODE Aortic Annulus Diameter 3.6 cm LA Ao Ratio MM 1.4 MV E Point Septal Separation 0.4 cm DOPPLER AV Peak Velocity 157.0 cm/s LVOT Peak Velocity 111.0 cm/s AV Area Cont Eq vti 2.3 cm squared AV Area Cont Eq pk 2.5 cm squared MV Area PHT 3.3 cm squared Mitral E to A Ratio 1.0 MV E' Velocity 56.5 cm/s Mitral E to MV E' Ratio 7.7 Mitral E to LV E' Lateral Ratio 6.0 Mitral E to LV E' Septal Ratio 11.1 TR Peak Velocity 307.8 cm/s TR Peak Gradient 37.9 mmHg TV Peak E Velocity 46.0 cm/s Right Atrial Pressure 10.0 mmHg Pulmonary Artery Systolic Pressu 47.9 mmHg PV Peak Velocity 106.0 cm/s RV Acceleration Time 0.1 s RV Ejection Time 0.3 s RV AcT/ET 0.3 FINDINGS Left Ventricle Normal left ventricular size and systolic function, EF 75 %. No regional wall motion abnormalities. Mild left ventricular hypertrophy. Right Ventricle The right ventricle is normal in size and function. Right Atrium Right atrium not well visualized. Left Atrium Mildly increased left atrial size. Mitral Valve Trace mitral valve regurgitation. Aortic Valve Thickened aortic valve. Aortic valve sclerosis. Tricuspid Valve Mild tricuspid valve regurgitation. Pulmonic Valve Mild pulmonary valve regurgitation. Pericardium Normal pericardium without effusion. Aorta Normal ascending aorta dimension. CONCLUSIONS Normal left ventricular size and systolic function, EF 75 %. No regional wall motion abnormalities. Mild left ventricular hypertrophy. Mildly increased left atrial size. Mild tricuspid valve regurgitation. Mild pulmonary valve regurgitation. Trace mitral valve regurgitation. Aortic valve sclerosis. There is no pericardial effusion. There are no intracardiac masses. No previous study is available for comparison. Dr Abdiel Mtz MD FACC (Electronically Signed) Final Date: 25 August 2021 08:43 S
[2021-08-25 06:07] LABS: C Reactive Protein 2.6 mg/L (0.0-4.9); Magnesium 1.8 mg/dL (1.7-2.3)
--- NOTE | 2021-08-25 06:45 | XR_ITS ---
WS: [id number] PORTABLE CHEST HISTORY: check pacer wire placement COMPARISON: 08/24/2021 Pacer pad is noted over the mid thorax. No permanent pacer wires are identified. There are numerous l ead wires over the chest from external monitoring. Mildly hyperexpanded lungs. Subsegmental area of atelectasis at the LEFT lung base. Otherwise lungs a re clear. No pleural effusion or pneumothorax. Cardiac size: Normal. Mediastinum/Aorta: Mild atherosclerosis aorta. No osseous abnormality seen. XR/XR chest 1V portable [id number] IMPRESSION: 1. Subsegmental atelectasis at the LEFT lung base. 2. No pneumonia. 3. No permanent pacer wires are identified.
--- NOTE | 2021-08-25 06:52 | PC.NURSE ---
Patient sat up on the side of the bed stating that he had to go to the bathroom. Instructed the patient that he cannot sit up and that he has to keep his leg straight to protect his temporary pacemaker. Quickly laid him back down and placed him on the bedpan. Within 5 minutes, the patient became bradycardic in the 30's and his pacemaker quit capturing. Dr. Mtz called and notified. Telephone order read back for stat chest xray to confirm placement. Radiology called and notified. Patient remains bradycardic in the 30-50's and all other vital signs are stable at this time.
--- NOTE | 2021-08-25 08:18 | PM.PN ---
Subjective Subjective: Interval history: The patient is doing okay. The temporary pacer was capturing around 645 this morning. But he started capturing again after increasing the output to 6 V. Chest x-ray revealed the lead still in place. So I slightly advanced the pacer wire. Currently it is pacing appropriately. The pacing threshold was around 1 V. The pacer was set for output of 3 V. The patient blood pressure is around 170/80. Patient refused anticoagulation. But now he is agreeable- after having a discussion with him about the need for at least temporarily placing him on DVT prophylaxis dose of Lovenox. Medications: Medication Review Details: Current Medications Acetaminophen (Acetaminophen 500 Mg Tablet) 500 mg PO Q4H PRN PRN Reason: fever Last Admin: 08/25/21 05:18 Dose: 500 mg Documented by: Albuterol/Ipratropium (Ipratropium-Albuterol 3 Ml Neb) 3 ml INHALATION Q6H PRN PRN Reason: SHORTNESS OF BREATH Sodium Chloride (Sodium Chloride 0.9%) 1,000 mls @ 75 mls/hr IV .[id number] [facility] Last Admin: 08/25/21 02:12 Dose: 75 mls/hr Documented by: Dopamine HCl/Dextrose (Intropin Drip) 400 mg in 250 mls @ 18.375 mls/hr IV CONT GIANA; Protocol Last Admin: 08/24/21 23:39 Dose: Not Given Documented by: Piperacillin Sod/Tazobactam (Sod 3.375 gm/ Sodium Chloride) 50 mls @ 12.5 mls/hr IV Q8H [facility] Last Admin: 08/25/21 05:15 Dose: 12.5 mls/hr Documented by: Ondansetron HCl (Ondansetron 2 Mg/Ml Sdv 2 Ml) 4 mg IVP Q6H PRN PRN Reason: NAUSEA AND VOMITING Tamsulosin HCl (Tamsulosin 0.4 Mg Capsule) 0.4 mg PO DAILY [facility] Vitals/I&O/Wt Last Vital Signs Temp 98.7 F 08/24/21 23:00 Pulse 60 08/25/21 06:03 Resp 20 H 08/25/21 06:00 BP 135/50 08/25/21 06:00 Pulse Ox 96 08/25/21 06:00 08/24/21 08/25/21 08/25/21 22:59 06:59 14:59 Intake Total 2059 / 2059 Output Total 800 / 800 Balance 1260 / 1260 Weight last 48 hrs Weight 216 lb 0.848 oz Physical Exam Narrative: EXAM NARRATIVE: GENERAL: The patient is alert and oriented times three. Not in any acute distress. HEENT: No significant pallor, icterus or lymphadenopathy.Oral cavity: There are no mucous membrane lesions. NECK: Trachea appears to be central. No masses noted. No JVD or thyromegaly appreciated. RESPIRATORY: Chest is symmetrical. No intercostals muscle retraction or any accessory muscle activation. There is no chest wall tenderness. Breath sounds are heard bilaterally. No rales or rhonchi heard. No evidence of any consolidation. BREASTS: Deferred. HEART: The heart sounds are normal. No S3 or S4. No significant murmurs. No pericardial rub ABDOMEN: No vessel pulsations or distention. No tenderness. No organomegaly appreciated. Bowel sounds are normally heard. : Deferred. RECTAL: Deferred. LYMPHATIC: No lymphadenopathy noted in the neck or groin. EXTREMITIES: Right groin has no hematoma bleeding MUSCULOSKELETAL: No acute joint deformities or swelling SKIN: There are no significant rashes or ecchymosis NEUROPSYCHIATRIC: The patient is alert and oriented x3. Appears to be in a good mood. No tremors or rigidity noted. Urinary Catheter Management: Cunningham: Cath Placed During This Visit: yes, but has since been removed by the nurse Reason for Continuing Indwelling Catheter: Decision to DC Catheter Urinary Catheter Date of Insertion: 08/24/21 Urinary Catheter Time of Insertion: 20:17 Date Urinary Catheter Removed: 08/25/21 Time Urinary Catheter Discontinued: 23:30 Data : 08/25/21 04:26 08/25/21 04:26 Other Labs: Laboratory Last Values WBC 9.3 10^3/uL (4.0-10.0) 08/25/21 04:26 RBC 3.53 10^6/uL (4.1-5.3) L 08/25/21 04:26 Hgb 12.2 g/dL (11.7-16.6) 08/25/21 04:26 Hct 38.7 % (42.0-52.0) L 08/25/21 04:26 MCV 109.6 fl (80-94) H 08/25/21 04:26 MCH 34.6 pg (28.0-34.0) H 08/25/21 04:26 MCHC 31.5 g/dL (30.0-36.0) 08/25/21 04:26 RDW 13.2 % (12.1-15.1) 08/25/21 04:26 Plt Count 157 10^3/cmm (130-400) 08/25/21 04:26 MPV 12.8 fL (7.4-10.4) H 08/25/21 04:26 Neut % (Auto) 74.0 % 08/25/21 04:26 Lymph % (Auto) 14.1 % 08/25/21 04:26 Sullivan % (Auto) 8.3 % 08/25/21 04:26 Eos % (Auto) 2.7 % 08/25/21 04:26 Baso % (Auto) 0.5 % 08/25/21 04:26 Neut # (Auto) 6.87 10^3/uL (1.8-7.7) 08/25/21 04:26 Lymph # (Auto) 1.3 10^3/uL (0.8-4.8) 08/25/21 04:26 Sullivan # (Auto) 0.8 10^3/uL (0.2-0.9) 08/25/21 04:26 Eos # (Auto) 0.3 10^3/uL (0.0-0.8) 08/25/21 04:26 Baso # (Auto) 0.1 10^3/uL (0.0-0.1) 08/25/21 04:26 Nucleated RBC % (auto) 0 % 08/25/21 04:26 Nucleated RBCs # 0.0 /100WBC 08/25/21 04:26 Sodium 138 mmol/L (136-145) 08/25/21 04:26 Potassium 4.6 mmol/L (3.5-5.1) 08/25/21 04:26 Chloride 108 mmol/L (98-107) H 08/25/21 04:26 Carbon Dioxide 15 mmol/L (22-29) L 08/25/21 04:26 Anion Gap 19.6 (5-19) H 08/25/21 04:26 BUN 37 mg/dL (8-23) H 08/25/21 04:26 Creatinine 2.1 mg/dL (0.7-1.2) H 08/25/21 04:26 GFR Calculation Not Reportable 08/25/21 04:26 Glucose 76 mg/dL (65-115) 08/25/21 04:26 Estimat Average Glucose 111 08/24/21 12:12 Hemoglobin A1c 5.5 % (4.0-6.0) 08/24/21 12:12 Calculated Osmolality 293 mOsm/kg (285-295) 08/25/21 04:26 Calcium 8.6 mg/dL (8.5-10.5) 08/25/21 04:26 Magnesium 1.8 mg/dL (1.7-2.3) 08/25/21 04:26 Total Bilirubin 0.8 mg/dL (0.15-1.2) 08/25/21 04:26 AST 27 U/L (0-40) 08/25/21 04:26 ALT 22 U/L (0-41) 08/25/21 04:26 Alkaline Phosphatase 114 IU/L (40-130) 08/25/21 04:26 Troponin T Baseline 43 ng/L (0-15) H 08/24/21 12:12 Troponin T 120 Minute 39.37 ng/L (0-15) H 08/24/21 14:01 Delta Troponin T -3.63 ABS# (0-10) L 08/24/21 14:01 Troponin T Hi Sens 6Hr 40.50 ng/L (0-15) H 08/24/21 19:16 Troponin T Hi Sens 6Hr Delta -2.50 ng/L (0-12) L 08/24/21 19:16 C-Reactive Protein 2.6 mg/L (0.0-4.9) 08/25/21 04:26 Total Protein 6.6 g/dL (6.6-8.7) 08/25/21 04:26 Albumin 3.6 g/dL (3.5-5.2) 08/25/21 04:26 Globulin 3.0 g/dL (1.3-4.6) 08/25/21 04:26 TSH 2.58 uIU/mL (0.27-4.20) 08/24/21 12:12 Free T4 1.36 ng/dL (0.82-1.77) 08/24/21 12:12 Urine Color Yellow (Yellow) 08/24/21 20:12 Urine Appearance Clear (CLEAR) 08/24/21 20:12 Urine pH 5 (5-7) 08/24/21 20:12 Ur Specific [place] 1.020 (1.005-1.030) 08/24/21 20:12 Urine Protein 3+ (Negative) H 08/24/21 20:12 Urine Glucose (UA) Norm (Normal) 08/24/21 20:12 Urine Ketones Negative (Negative) 08/24/21 20:12 Urine Blood 2+ (Negative) H 08/24/21 20:12 Urine Nitrate Negative (Negative) 08/24/21 20:12 Urine Bilirubin 1+ (Negative) H 08/24/21 20:12 Urine Urobilinogen Norm mg/dL (Negative) 08/24/21 20:12 Ur Leukocyte Esterase Negative (Negative) 08/24/21 20:12 Urine RBC 0-4 /hpf (0-2) H 08/24/21 20:12 Urine WBC 5-10 /hpf (0-5) H 08/24/21 20:12 Ur Squamous Epith Cells 0-4 /hpf (0-5) H 08/24/21 20:12 Amorphous Sediment Not Reportable 08/24/21 20:12 Urine Bacteria 1+ /hpf (NONE) H 08/24/21 20:12 Urine Mucus 1+ /hpf 08/24/21 20:12 A&P Assessment and plan (1) Symptomatic bradycardia: Patient seems to be dependent on the pacemaker. At this point, it would be appropriate to go ahead with the transvenous permanent pacemaker evaluation. Apparently this patient has been on metoprolol for a long time Status: Acute (2) Atrial flutter by electrocardiogram: Patient was refusing heparin. But now he is willing to take DVT prophylaxis of Lovenox. We also will apply intermittent pneumatic compression of the lower extremities Status: Acute (3) Hyperkalemia: Currently normokalemic Status: Acute (4) LYNETTE (acute kidney injury): The etiology is not clear. Patient was found to be hypertensive in the emergency room. Status: Acute (5) Accelerated hypertension: Patient may be started on hydralazine 25 mg p.o. 3 times daily Status: Acute Plan Since I am going to be out of town, I contacted Dr. Berger to perform the permanent pacer implantation for this patient. This also was discussed with the patient and Dr. Edwards. [employer] was contacted about this and they agreed to be here by noon. 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
--- NOTE | 2021-08-25 08:34 | PM.CONSULT ---
Providers/Reason For Consult Consulting Physician/Specialty*: Dr. Berger/cardiothoracic surgery Reason for Consult*: Atrial flutter with heart block and heart rate in 30s, temporary pacemaker currently in position. Requesting Physician: Dr. Mtz/cardiology Attending Physician: Cristino Edwards MD Primary Care Provider: Susanne Gutierrez MD History of Present Illness History of Present Illness Joao Hawley is an 85 year old male who was admitted to the emergency department last night upon presentation with several episodes of near syncope. He was found to be in atrial flutter with a heart rate in the 20s which was nonresponsive to atropine. Presenting EKG revealed atrial flutter with junctional bradycardia and interventricular conduction delay. Dr. Mtz from cardiology was consulted and a right femoral transvenous pacemaker was placed yesterday evening. I have been contacted by Dr. Mtz today for permanent pacemaker implantation, as Dr. Mtz is leaving [facility]. Presently, Mr. Hawley is resting comfortably in ICU bed five with a paced rhythm of 75 bpm. He has no cognitive impairment and states he feels well. He has previously been on metoprolol for his atrial flutter. Upon presentation patient gave a history of 2 months of flank pain. Contrasted CT scan was performed due to elevated BUN and creatinine. The study revealed bilateral perinephric stranding with no obstruction and bilateral renal low-attenuation masses. These may represent cyst but would be further clarified once in hand study can be performed. Laboratory data is unremarkable except for BUN of 37 and creatinine of 2.1 which is slightly decreased from his presentation creatinine of 2.3. Chest x-ray is clear. Review of Systems Const: Reports: fatigue; Denies: change in weight Card: Reports: irregular heart rhythm, syncope, pre-syncope and dyspnea on exertion; Denies: chest pain GI: Denies: abdominal pain : Reports: flank pain Musc: Reports: back pain and joint pain; Denies: limited range of motion or muscle cramps Neuro: Reports: dizziness; Denies: headache(s) or weakness in extremities Psych: Denies: anxiety or depression Michael/Lymph: Denies: easy bruising or easy bleeding Medications/Allergies Home Medications Medication Instructions Recorded Confirmed Last Taken Type albuterol sulfate 90 mcg/actuation 2 inh INHALATION Q6H PRN 12/03/19 08/24/21 Unknown History breath activated powder inhaler alprazolam 0.25 mg tablet 0.25 mg PO BEDTIME PRN 12/03/19 08/24/21 08/20/21 History amlodipine 10 mg tablet 5 mg PO DAILY 12/03/19 08/24/21 08/23/21 History colchicine 0.6 mg capsule 0.6 mg PO BID PRN 12/03/19 08/24/21 Unknown History ergocalciferol (vitamin D2) 1,250 1,250 mcg PO Q7D cap 12/03/19 08/24/21 Unknown History mcg (50,000 unit) capsule (Vitamin D2) hydralazine 25 mg tablet 25 mg PO BID 12/03/19 08/24/21 08/23/21 History lovastatin 40 mg tablet 40 mg PO DAILY 12/03/19 08/24/21 08/23/21 History metoprolol tartrate 25 mg tablet 25 mg PO BID 12/03/19 08/24/21 08/23/21 History tramadol 50 mg tablet 50 mg PO TID PRN #7 tab 04/09/21 08/24/21 Unknown Rx Allergies Allergy/AdvReac Type Severity Reaction Status Date / Time hydrochlorothiazide Allergy unknown Verified 08/24/21 12:19 Current Medications Generic Name Dose Route Start Last Admin Trade Name Freq PRN Reason Stop Dose Admin Acetaminophen 500 mg 08/24/21 15:47 08/25/21 05:18 Acetaminophen 500 Mg Tablet PO 500 mg Q4H PRN Administration fever Sodium Chloride 1,000 mls @ 75 mls/hr 08/24/21 15:47 08/25/21 02:12 Sodium Chloride 0.9% IV 75 mls/hr .[id number] GIANA Administration Dopamine HCl/Dextrose 400 mg in 250 mls @ 18.375 mls/hr 08/24/21 18:00 08/24/21 23:39 Intropin Drip IV Not Given CONT GIANA Protocol 5 MCG/KG/MIN Piperacillin Sod/Tazobactam 50 mls @ 12.5 mls/hr 08/24/21 20:00 08/25/21 05:15 Sod 3.375 gm/ Sodium Chloride IV 12.5 mls/hr Q8H GIANA Administration PFSH Acute PFSH: Medical History A-fib COPD (chronic obstructive pulmonary disease) Gout Hyperlipidemia Hypertension Surgical History History of appendectomy Previous back surgery Family History Other Family history non-contributory Social History Smoking and tobacco status: never smoked Alcohol intake: current Alcohol intake frequency: few times a month Lives independently: Yes Housing: House Vitals/I&O/Wt Last Vital Signs Temp 98.7 F 08/24/21 23:00 Pulse 60 08/25/21 06:03 Resp 20 H 08/25/21 06:00 BP 135/50 08/25/21 06:00 Pulse Ox 96 08/25/21 06:00 08/24/21 08/25/21 08/25/21 22:59 06:59 14:59 Intake Total 2060 / 2060 Output Total 800 / 800 Balance 1260 / 1260 Weight last 48 hrs Weight 216 lb 0.848 oz Physical Exam Const: COMMON NORMALS: patient oriented x3 HENMT: COMMON NORMALS: normocephalic and atraumatic HEAD & SCALP: normal to inspection, normocephalic and atraumatic Eye: COMMON NORMALS: Equal, round and reactive pupils present and EOMs intact bilaterally PUPIL: Yes Equal, round and reactive pupils present Neck/C-Spine: COMMON NORMALS: full ROM and no lymphadenopathy Chest: COMMONS NORMALS: normal inspection of the chest and normal palpation of entire chest wall Resp: COMMON NORMALS: normal respiratory effort, No retractions and clear to auscultation bilaterally AUSCULTATION: clear to auscultation bilaterally Cardio: COMMON NORMALS: regular rate and S1 normal heart sound present; negative for No murmurs present (Cardio) RATE: regular rate HEART SOUNDS: S1 normal heart sound present and Murmur heart sound present systolic Location: left sternal border Intensity: I/ BRUITS: no abdominal aortic bruits and no carotid bruits GI: COMMON NORMALS: Normal to inspection, nondistended, normoactive bowel sounds present Extremity: NARRATIVE EXTREMITY EXAM: No open Lesions. obvious evidence for embolic phenomenon.. Large dressing in place in the right groin where the transvenous pacemaker has been placed. Neuro: COMMON NORMALS: patient oriented x3, no focal motor deficits and no sensory deficits noted Urinary Catheter Management: Cunningham: Cath Placed During This Visit: yes, but has since been removed by the nurse Reason for Continuing Indwelling Catheter: Decision to DC Catheter Urinary Catheter Date of Insertion: 08/24/21 Urinary Catheter Time of Insertion: 20:17 Date Urinary Catheter Removed: 08/25/21 Time Urinary Catheter Discontinued: 23:30 Data : 08/25/21 04:26 08/25/21 04:26 CXR: My impression: Admitting chest x-ray is clear without obvious infiltrate or effusion. Hemidiaphragms are low. A&P Assessment and plan (1) Symptomatic bradycardia: Status: Acute Plan Highly symptomatic and refractory bradycardia with interventricular conduction delay and heart block with atrial flutter. Currently, heart rate controlled with temporary pacing. Plan: I have conferred with my colleague Dr. Mtz. We will plan for pacemaker implantation later this morning. Rationale was carefully discussed with Mr. Hawley. Details and risks of the procedure were carefully and frankly discussed. Risks reviewed include the possibility of , stroke, heart attack, major bleeding, infection, pneumonia, pneumothorax requiring chest tube, migration of the leads requiring revision, organ failure, failure to benefit, prolonged hospital stay, pain after the procedure, need for further procedures, inability to complete the procedure, and need for long-term followup and monitoring All questions were answered. Appropriate consents will be provided for review and signature. Consult Attestations Medical Necessity Statement: Flutter with heart block and highly symptomatic bradycardia, requiring temporary pacing Time Spent in Patient Care: Greater than 35 minutes Coding Level of Care Code New Pt Acute Final Inspector for Chg Fwd Patient Type New Diagnoses Symptomatic bradycardia R00.1
--- NOTE | 2021-08-25 08:58 | PC.NURSE ---
Hold all morning meds: Lovenox, Hydralazine, and Flomax per Dr Berger via telephone. Will administer after permanent pacemaker placement if needed. Dr Mtz requested verification for Lovenox administration with Dr Berger prior to administering.
--- NOTE | 2021-08-25 09:44 | P.PN_ITS ---
Subjective Subjective: Interval history: Overnight events noted, around 6 AM his temporary pacemaker got displaced, which was readjusted by Dr. Celine Hayes planning for permanent pacemaker p lacement today He is pacemaker dependent, hemodynamically stable, He felt dizzy while he was using bedside commode around 6 AM and that probably displaces temporary pacemaker at that time We will start DVT prophylaxis after his permanent pacemaker placement He had diarrhea, C. difficile sent Vitals/I&O/Wt Last Vital Signs Temp 98.7 F 08/24/21 23:00 Pulse 76 08/25/21 08:39 Resp 16 08/25/21 08:39 BP 135/50 08/25/21 06:00 Pulse Ox 97 08/25/21 08:39 08/24/21 08/25/21 08/25/21 22:59 06:59 14:59 Intake Total 2059 / 2059 Output Total 800 / 800 Balance 1260 / 1260 Weight last 48 hrs Weight 98 kg Physical Exam Narrative: EXAM NARRATIVE: Patient was laying supine He was using bedpan Abdomen soft S1, S2 pacemaker dependent Nonfocal neuro exam Saturating well on room air Very pleasant and cooperative during my evaluation Urinary Catheter Management: Cunningham: Cath Placed During This Visit: yes, but has since been removed by the nurse Reason for Continuing Indwelling Catheter: Decision to DC Catheter Urinary Catheter Date of Insertion: 08/24/21 Urinary Catheter Time of Insertion: 20:17 Date Urinary Catheter Removed: 08/25/21 Time Urinary Catheter Discontinued: 23:30 Data : 08/25/21 04:26 08/25/21 04:26 A&P Assessment and plan (1) Symptomatic bradycardia: Status: Acute (2) Atrial flutter by electrocardiogram: Status: Acute (3) Hyperkalemia: Status: Acute (4) LYNETTE (acute kidney injury): Status: Acute (5) Pre-syncope: Status: Acute (6) Bradycardia: Status: Acute Plan Symptomatic bradycardia, Patient went for permanent pacemaker placement Hyperkalemia: Improved LYNETTE related to pyelonephritis continue antibiotics, creatinine improving with IV fluids, change Zosyn to ceftriaxone Diarrhea: Check C. difficile N.p.o. 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
--- NOTE | 2021-08-25 10:10 | ANES.PREANE2 ---
Pre-Anesthetic Assessment Height/Weight: Height 1.77 m Weight 98 kg Temp Pulse Resp BP Pulse Ox 98.7 F 76 16 135/50 97 08/24/21 23:00 08/25/21 08:39 08/25/21 08:39 08/25/21 06:00 08/25/21 08:39 Operation Date: 08/24/21 18:00 Proposed Procedures p Temporary Pacemaker Placement(Not Applicable) - Abdiel Mtz MD Operation Date: 08/25/21 10:30 Proposed Procedures p Pacemaker Insertion(Not Applicable) - Omar Berger MD Was Beta Karena taken within 24 hours: N/A (Stopped) Was Clonidine taken within 24 hours: N/A Last intake: 08/24/21 Social No alcohol and No tobacco Exam alert, oriented x 3, clear to auscultation bilaterally and regular rate & rhythm Airway Submandibular: within normal limits Cervical ROM: within normal limits Mallampati: Class I Dentition: false Pulmonary Chronic Obstructive Pulmonary Disease CV/HEM Arrythmia (Hx of a-fib admintted with atrial flutter with profound bradycardia now with temporary pacer) and Hypertension TTE 08/25/21 CONCLUSIONS ?Normal left ventricular size and systolic function, EF 75 %. No ?regional wall motion abnormalities. Mild left ventricular ?hypertrophy. ?Mildly increased left atrial size. ?Mild tricuspid valve regurgitation. ?Mild pulmonary valve regurgitation. ?Trace mitral valve regurgitation. ?Aortic valve sclerosis. ?There is no pericardial effusion. ?There are no intracardiac masses. ?No previous study is available for comparison. EKG ?Interpretive Statements IDIOVENTRICULAR RHYTHM PROLONGED QT INTERVAL CRITICAL TEST RESULT Compared to ECG 08/24/2021 14:38:15 Idioventricular rhythm now present Sinus rhythm no longer present Intraventricular conduction delay no longer present Myocardial infarct finding no longer present [email or web address] LYNETTE Hepatic Hx of hepatomegaly per patient from prior hx of ETOH use no longer drinks GI None reported Metabolic None reported Musc/skel Gout Neuropsych None reported Anesthetic Plan ASA status: 4 (85 year old male with profound and symptomatic bradycardia secondary to atrial flutter now w/ LYNETTE s/p temporary pacemaker ) Anesthesia: Anesthesia Evaluation, General and MAC Other: I discussed with the patient risks, goals, and benefits of MAC and general anesthesia. We discussed spectrum of MAC anesthesia including conversion to general as well as possibility of recall of intraoperative stimuli including discomfort/pain. Patient agrees to proceed with MAC or general pending discussion with Dr. Berger. Risk of > 500 ml blood loss (7ml/kg in children): No Medications/Allergies Home Medications Medication Instructions Recorded Confirmed Last Taken Type albuterol sulfate 90 mcg/actuation 2 inh INHALATION Q6H PRN 12/03/19 08/24/21 Unknown History breath activated powder inhaler alprazolam 0.25 mg tablet 0.25 mg PO BEDTIME PRN 12/03/19 08/24/21 08/20/21 History amlodipine 10 mg tablet 5 mg PO DAILY 12/03/19 08/24/21 08/23/21 History colchicine 0.6 mg capsule 0.6 mg PO BID PRN 12/03/19 08/24/21 Unknown History ergocalciferol (vitamin D2) 1,250 1,250 mcg PO Q7D cap 12/03/19 08/24/21 Unknown History mcg (50,000 unit) capsule (Vitamin D2) hydralazine 25 mg tablet 25 mg PO BID 12/03/19 08/24/21 08/23/21 History lovastatin 40 mg tablet 40 mg PO DAILY 12/03/19 08/24/21 08/23/21 History metoprolol tartrate 25 mg tablet 25 mg PO BID 12/03/19 08/24/21 08/23/21 History tramadol 50 mg tablet 50 mg PO TID PRN #7 tab 04/09/21 08/24/21 Unknown Rx Allergies Allergy/AdvReac Type Severity Reaction Status Date / Time hydrochlorothiazide Allergy unknown Verified 08/24/21 12:19 Current Medications Generic Name Dose Route Start Last Admin Trade Name Freq PRN Reason Stop Dose Admin Acetaminophen 500 mg 08/24/21 15:47 08/25/21 05:18 Acetaminophen 500 Mg Tablet PO 500 mg Q4H PRN Administration fever Enoxaparin Sodium 40 mg 08/25/21 08:30 08/25/21 08:58 Enoxaparin 40 Mg/0.4 Ml Syringe SUBCUT Not Given Q24H GIANA Hydralazine HCl 25 mg 08/25/21 09:00 08/25/21 08:58 Hydralazine 25 Mg Tablet PO Not Given TID GIANA Sodium Chloride 1,000 mls @ 75 mls/hr 08/24/21 15:47 08/25/21 02:12 Sodium Chloride 0.9% IV 75 mls/hr .[id number] GIANA Administration Dopamine HCl/Dextrose 400 mg in 250 mls @ 18.375 mls/hr 08/24/21 18:00 08/24/21 23:39 Intropin Drip IV Not Given CONT [facility] Protocol 5 MCG/KG/MIN Piperacillin Sod/Tazobactam 50 mls @ 12.5 mls/hr 08/24/21 20:00 08/25/21 05:15 Sod 3.375 gm/ Sodium Chloride IV 12.5 mls/hr Q8H [facility] Administration Tamsulosin HCl 0.4 mg 08/25/21 09:00 08/25/21 08:58 Tamsulosin 0.4 Mg Capsule PO Not Given DAILY [facility] Additional Medication Information Current Medications Acetaminophen (Acetaminophen 500 Mg Tablet) 500 mg PO Q4H PRN PRN Reason: fever Last Admin: 08/25/21 05:18 Dose: 500 mg Documented by: Albuterol/Ipratropium (Ipratropium-Albuterol 3 Ml Neb) 3 ml INHALATION Q6H PRN PRN Reason: SHORTNESS OF BREATH Sodium Chloride (Sodium Chloride 0.9%) 1,000 mls @ 75 mls/hr IV .[id number] [facility] Last Admin: 08/25/21 02:12 Dose: 75 mls/hr Documented by: Dopamine HCl/Dextrose (Intropin Drip) 400 mg in 250 mls @ 18.375 mls/hr IV CONT [facility]; Protocol Last Admin: 08/24/21 23:39 Dose: Not Given Documented by: Piperacillin Sod/Tazobactam (Sod 3.375 gm/ Sodium Chloride) 50 mls @ 12.5 mls/hr IV Q8H [facility] Last Admin: 08/25/21 05:15 Dose: 12.5 mls/hr Documented by: Ondansetron HCl (Ondansetron 2 Mg/Ml Sdv 2 Ml) 4 mg IVP Q6H PRN PRN Reason: NAUSEA AND VOMITING Tamsulosin HCl (Tamsulosin 0.4 Mg Capsule) 0.4 mg PO DAILY [facility] Anesthesia Medical History A-fib COPD (chronic obstructive pulmonary disease) Gout Hyperlipidemia Hypertension Surgical History History of appendectomy Previous back surgery Family History Other Family history non-contributory Social History Smoking and tobacco status: never smoked Alcohol intake: current Alcohol intake frequency: few times a month Lives independently: Yes Housing: House Data Anesthesia : 08/25/21 04:26 08/25/21 04:26 Short CBC 08/24/21 08/25/21 Range/Units 12:12 04:26 WBC 9.3 9.3 (4.0-10.0) 10^3/uL Hgb 12.9 12.2 (11.7-16.6) g/dL Hct 39.6 L 38.7 L (42.0-52.0) % MCV 108.2 H 109.6 H (80-94) fl Plt Count 197 157 (130-400) 10^3/cmm Neut % (Auto) 67.0 74.0 % Neut # (Auto) 6.26 6.87 (1.8-7.7) 10^3/uL BMP 08/24/21 08/24/21 08/25/21 12:12 19:16 04:26 Sodium 139 138 Potassium 5.6 H 5.3 H 4.6 Chloride 107 108 H Carbon Dioxide 16 L 15 L BUN 35 H 37 H Creatinine 2.3 H 2.1 H Glucose 93 76 Calcium 10.0 8.6 Cardiac Enzymes 08/24/21 08/24/21 08/24/21 Range/Units 12:12 14:01 19:16 Troponin T Baseline 43 H (0-15) ng/L Troponin T 120 Minute 39.37 H (0-15) ng/L Delta Troponin T -3.63 L (0-10) ABS# Troponin T Hi Sens 6Hr 40.50 H (0-15) ng/L Troponin T Hi Sens 6Hr Delta -2.50 L (0-12) ng/L Liver Function 08/24/21 08/25/21 Range/Units 12:12 04:26 Total Bilirubin 0.5 0.8 (0.15-1.2) mg/dL AST 21 27 (0-40) U/L ALT 23 22 (0-41) U/L Alkaline Phosphatase 114 114 (40-130) IU/L Albumin 4.1 3.6 (3.5-5.2) g/dL Urine 08/24/21 Range/Units 20:12 Urine Color Yellow (Yellow) Urine Appearance Clear (CLEAR) Urine pH 5 (5-7) Ur Specific [place] 1.020 (1.005-1.030) Urine Protein 3+ H (Negative) Urine Glucose (UA) Norm (Normal) Urine Ketones Negative (Negative) Urine Nitrate Negative (Negative) Urine Bilirubin 1+ H (Negative) Ur Leukocyte Esterase Negative (Negative) Urine RBC 0-4 H (0-2) /hpf Urine WBC 5-10 H (0-5) /hpf Coags 08/25/21 04:26 C-Reactive Protein 2.6 Cardiac Studies: Echocardiogram 08/25/21
[2021-08-25] MEDS: chlorhexidine gluconate 4% Btl 118 mL 1 APPLIC TOPICAL (10:15)
[2021-08-25] MEDS: cefTRIAXone 1,000 MG in sodium chloride 0.9% (plus) 50 ML 100 MG IV (12:17)
--- NOTE | 2021-08-25 12:20 | SC_ITS ---
WS: [id number] INTRAOPERATIVE TECHNIQUE: 6 Spot fluoroscopic images for intraoperative purposes. FLUOROSCOPY TIME: 259.6 seconds CLINICAL INFORMATION: pacemaker COMPARISON: None. FINDINGS: Images obtained for intraoperative pacemaker placement. Single lead pacer wire visualized. No visuali zed pneumothorax. SC/C-arm FL for Pacemaker IMPRESSION: Images obtained for intraoperative purposes.
[2021-08-25] MEDS: lidocaine 1% INJ 20 mL INJECTION (13:19)
[2021-08-25] MEDS: ceFAZolin 1,000 mg SDV 1000 MG IRRIGATION (13:23)
--- NOTE | 2021-08-25 14:43 | P.OP_ITS ---
Operative Report Date of procedure: August 25, 2021 Pre-op diagnosis: Symptomatic bradycardia/atrial flutter Procedure done: Single lead pacemaker placement Implants: 1. Generator 2. Right ventricular lead Pathology: None Surgeon: Omar Berger Estimated blood loss: Less than 20 cc Complications: None: Post procedure chest x-ray pending Brief History: Mr. Hawley is an 85-year-old gentleman with a 2 decade history of atrial flutter. He has been developing progressive near syncopal episodes and presented yesterday evening to the emergency department with atrial flutter and a heart rate in the 20s which was not responsive to atropine. Temporary pacing was placed by Dr. Mtz. I was requested for placement of permanent system. Details and risk of the procedure were carefully discussed with Mr. Hawley. Proper consents were reviewed and signed. Procedure: Procedure: Mr. Hawley was taken to the OR suite and placed in the supine position over a shoulder roll. He received conscious sedation with continuous anesthesia monitoring by. He is entire chest was sterilely prepped and draped. 1% lidocaine was infiltrated in the left subclavicular region. While in Trendelenburg position, utilizing modified seldinger technique and hand-held ultrasound guidance, a guidewire was placed in the left subclavian vein. This was confirmed in position by fluoroscopy. Next, after infiltration with lidocaine, a subcutaneous pocket was created beginning from the exit point of the guidewire and extending laterally and inferiorly. Cautery was utilized to create the pocket just above the pectoralis musculature. Hemostasis was confirmed. An antibiotic-soaked sponge was placed in the wound. A dilator and tear-away sheath was placed over the guidewire and advanced under fluoroscopy. Guidewire and dilator were removed. Next using a combination of curved and straight stylettes, the right ventricular lead was placed in position by fluoroscopy. The distal screw was extended. Interrogation was then performed confirming appropriate parameters. The tear-away sheath was then removed and the ventricular lead was sewn to the floor of the subcutaneous pocket. Pacing generator was brought into the field, and after confirmation of hemostasis in the subcutaneous pocket, the lead was connected to the generator with appropriate capture. The entire system was interrogated by fluoroscopy. The right femoral temporary pacing wire was removed under fluoroscopy with the sheat h left in position. Implanted lead and generator were secured in the pocket. Sponge and needle count was correct. The wound was then closed in 2 layers of 3-0 Vicryl suture. Skin was reapproximated in a subcuticular manner with 4-0 Monocryl suture. A pressure dressing was applied. The left arm was placed in a sling. Her Hawley had equal breath sounds bilaterally. He was then transferred back to the intensive care unit, where chest x-ray is currently pending. At the time of transfer, he remains in stable condition with a paced rhythm. Following are the specifics of this system: Right ventricular lead is 58 cm and model [id number]. Serial number [id number] Ventricular lead had sensing of 18.1 mV with an impedance of 740 ohms. Threshold was 1 V Near Infinity generator: Model # [id number] Serial # [id number]
[2021-08-25] MEDS: morphine 4 mg/mL SDV 1 mL 2 MG IVP (14:49)
[2021-08-25 15:12] LABS: Lyme AB Screen <0.90 index
--- NOTE | 2021-08-25 15:39 | XRR_ITS ---
PROCEDURE INFORMATION: Exam: XR Chest Exam date and time: 08/25/2021 3:39 PM Age: 85 years old Clinical indication: Device placement; Cardiac pacemaker placement or adjustment; Prior surgery; Surgery date: Post-operative (0-2 days); Additional info: Post pacemaker insertion TECHNIQUE: Imaging protocol: XR of the chest. Views: 1 view. COMPARISON: CR XR chest 1V portable [id number] 08/25/2021 6:45 AM FINDINGS: Lungs: Unremarkable. No consolidation. Pleural spaces: Unremarkable. No pleural effusion. No pneumothorax. Heart/Mediastinum: No cardiomegaly. One lead pacer device noted in the left chest wall. Bones/joints: Unremarkable. XR/XR chest 1V portable [id number] IMPRESSION: Interval placement of cardiac pacemaker in the left chest wall. No acute findings.
--- NOTE | 2021-08-25 15:56 | ANE.PACU2 ---
Inpatient post-anesthesia follow up: Airway intact: Yes Vital signs: Temperature 98.7 F Pulse Rate 76 Respiratory Rate 16 Blood Pressure 171/73 Pulse Oximetry 96 Oxygen Delivery Me thod Room Air Oxygen Flow Rate Fraction of Inspir ed Oxygen Hydration adequate: Yes Nausea and vomiting: No Pain level: 2 Mental status: Baseline
[2021-08-25] MEDS: hyDRALAzine 25 mg Tablet PO ×2 (16:51→21:01)
[2021-08-25] MEDS: HYDROcodone-acetaminophen 5-325 mg Tablet 1 TAB PO (16:51)
--- NOTE | 2021-08-25 20:20 | PC.NURSE ---
FEMORAL SHEATH Right femoral sheath remains in place at this time due to hypertension. Dr. Casillas called to notify of hypertension and concern for sheath pull with high pressure. orders for hydralazine 10 mg IVP Q3H for systolic BP greater than 160. Then proceed with scheduled 2100 PO hydralazine.
[2021-08-25] MEDS: hyDRALAzine 20 mg/mL INJ 1 mL 10 MG IVP (20:37)
--- NOTE | 2021-08-25 21:51 | PC.NURSE ---
FEMORAL VENOUS SHEATH Femoral venous sheath removed by Omid Hatch RN at 2130. Pressure held for 15 minutes. Gauze and tegaderm placed over site. Distal pulses present. Site is supple, no bruising or hematoma present.
--- NOTE | 2021-08-25 22:20 | PM.PN ---
Subjective Subjective: Interval history: Status post permanent pacemaker placement Medications: Medication Review Details: Current Medications Acetaminophen (Acetaminophen 500 Mg Tablet) 500 mg PO Q4H PRN PRN Reason: fever Last Admin: 08/25/21 05:18 Dose: 500 mg Documented by: Albuterol/Ipratropium (Ipratropium-Albuterol 3 Ml Neb) 3 ml INHALATION Q6H PRN PRN Reason: SHORTNESS OF BREATH Sodium Chloride (Sodium Chloride 0.9%) 1,000 mls @ 75 mls/hr IV .[id number] COUNT INCLUDES THE [facility] Last Admin: 08/25/21 02:12 Dose: 75 mls/hr Documented by: Dopamine HCl/Dextrose (Intropin Drip) 400 mg in 250 mls @ 18.375 mls/hr IV CONT COUNT INCLUDES THE [facility]; Protocol Last Admin: 08/24/21 23:39 Dose: Not Given Documented by: Piperacillin Sod/Tazobactam (Sod 3.375 gm/ Sodium Chloride) 50 mls @ 12.5 mls/hr IV Q8H COUNT INCLUDES THE [facility] Last Admin: 08/25/21 05:15 Dose: 12.5 mls/hr Documented by: Ondansetron HCl (Ondansetron 2 Mg/Ml Sdv 2 Ml) 4 mg IVP Q6H PRN PRN Reason: NAUSEA AND VOMITING Tamsulosin HCl (Tamsulosin 0.4 Mg Capsule) 0.4 mg PO DAILY COUNT INCLUDES THE [facility] Vitals/I&O/Wt Last Vital Signs Temp 98.7 F 08/24/21 23:00 Pulse 70 08/25/21 22:15 Resp 21 H 08/25/21 22:15 BP 152/66 08/25/21 22:15 Pulse Ox 95 08/25/21 22:15 08/25/21 08/25/21 08/25/21 06:59 14:59 22:59 Intake Total 2060 / 2060 50 / 50 620 / 670 Output Total 800 / 800 400 / 400 Balance 1260 / 1260 -350 / -350 620 / 270 Weight last 48 hrs Weight 216 lb 0.848 oz Physical Exam Chest: OTHER: GENERAL: Patient is alert, awake and oriented x3. Patient is awaiting pacemaker sleep NECK: No jugular vein distension. HEENT: No cyanosis. No icterus. No pallor. HEART: Regular S1 and S2. No murmur, rub or gallop. LUNGS: Clear to auscultate bilaterally. ABDOMEN: Soft, nontender and nondistended. Positive bowel sounds. No guarding, rebound or tenderness. CENTRAL NERVOUS SYSTEM: Grossly nonfocal. EXTREMITIES: Lower extremities right groin looks good Urinary Catheter Management: Cunningham: Cath Placed During This Visit: yes, but has since been removed by the nurse Reason for Continuing Indwelling Catheter: Decision to DC Catheter Urinary Catheter Date of Insertion: 08/24/21 Urinary Catheter Time of Insertion: 20:17 Date Urinary Catheter Removed: 08/25/21 Time Urinary Catheter Discontinued: 23:30 Data : 08/25/21 04:26 08/25/21 04:26 Micro: Microbiology 08/25/21 06:30 C.difficile Toxin B Gene (PCR) - Final Stool - Stool Aspirate A&P Assessment and plan (1) Symptomatic bradycardia: Status post permanent pacemaker Status: Acute (2) Atrial flutter by electrocardiogram: Rate controlled s/p permanent pacemaker placement continue anticoagulation from tomorrow Status: Acute (3) Accelerated hypertension: Will optimize medicine use as needed IV hydralazine Status: Acute (4) LYNETTE (acute kidney injury): Status: Acute Plan Highly symptomatic and refractory bradycardia with interventricular conduction delay and heart block with atrial flutter. Currently, heart rate controlled with temporary pacing. Plan: I have conferred with my colleague Dr. Mtz. We will plan for pacemaker implantation later this morning. Rationale was carefully discussed with Mr. Hawley. Details and risks of the procedure were carefully and frankly discussed. Risks reviewed include the possibility of , stroke, heart attack, major bleeding, infection, pneumonia, pneumothorax requiring chest tube, migration of the leads requiring revision, organ failure, failure to benefit, prolonged hospital stay, pain after the procedure, need for further procedures, inability to complete the procedure, and need for long-term followup and monitoring All questions were answered. Appropriate consents will be provided for review and signature. Attestations Medical Necessity Statement*: Patient require continuation hospitalization for above defined care. 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
[2021-08-25] MEDS: ALPRAZolam 0.5 mg Tablet 0.25 MG PO (23:06)
[2021-08-26] VITALS (37 sets, daily range): BP systolic 126–193; BP diastolic 57–95; PULSE 69–77; RESP 15–25; TEMP 36.5–36.9; O2SAT 93–97
[2021-08-26] MEDS: HYDROcodone-acetaminophen 5-325 mg Tablet 1 TAB PO (02:28)
[2021-08-26] MEDS: sodium chloride 0.9% 1,000 ML 75 ML IV (02:31)
[2021-08-26] MEDS: hyDRALAzine 20 mg/mL INJ 1 mL 10 MG IVP (04:10)
[2021-08-26 06:00] LABS: Basophils % 0.5 %; Eosinophils # 0.3 10^3/uL (0.0-0.8); Hematocrit 37.2 % (42.0-52.0); Hemoglobin 12.2 g/dL (11.7-16.6); Lymphocytes % 15.6 %; Mean Corpuscular HGB Conc 32.8 g/dL (30.0-36.0); Mean Corpuscular Hemoglobin 34.7 pg (28.0-34.0); Mean Corpuscular Volume 105.7 fl (80-94); Mean Platelet Volume 12.5 fL (7.4-10.4); Monocytes # 0.6 10^3/uL (0.2-0.9); Monocytes % 9.4 %; Neutrophils # 4.26 10^3/uL (1.8-7.7); Neutrophils % 69.2 %; Nucleated Red Blood Cells % 0 %; Platelet Count 145 10^3/cmm (130-400); Red Blood Count 3.52 10^6/uL (4.1-5.3); Red Cell Distribution Width 13.1 % (12.1-15.1); White Blood Count 6.2 10^3/uL (4.0-10.0)
--- NOTE | 2021-08-26 06:00 | ECG_ITS ---
[facility] Test Date: 2021-08-26 Pat Name: Joao Hawley Department: Room: [facility] Gender: Male Branch Operations Coordinator: : 1935 Requested By: Omar Berger Order Number: [id number] Reading MD: JOCELYN NICOLE Measurements Intervals [place] Rate: 71 P: MS: QRS: -86 QRSD: 161 T: 49 QT: 471 QTc: 513 Interpretive Statements ELECTRONIC VENTRICULAR PACEMAKER ABNORMAL RHYTHM ECG Compared to ECG 08/24/2021 17:42:49 Atrial flutter no longer present Intraventricular conduction delay no longer present Electronically Signed On 08-26-2021 17:46:36 PRODUCT SPECIALIST by JOCELYN NICOLE [email or web address]
[2021-08-26 06:32] LABS: Anion Gap 19.2 (5-19); Blood Urea Nitrogen 28 mg/dL (8-23); Calcium 9.1 mg/dL (8.5-10.5); Carbon Dioxide 15 mmol/L (22-29); Chloride 107 mmol/L (98-107); Glucose 77 mg/dL (65-115); Osmolality Calculated 288 mOsm/kg (285-295); Potassium 4.2 mmol/L (3.5-5.1); Sodium 137 mmol/L (136-145)
[2021-08-26] MEDS: acetaminophen 500 mg Tablet PO (08:05)
[2021-08-26] MEDS: hyDRALAzine 25 mg Tablet PO (08:06)
[2021-08-26] MEDS: pantoprazole DR 40 mg Tablet PO (08:06)
[2021-08-26] MEDS: enoxaparin 40 mg/0.4 mL Syringe SUBCUT (08:07)
[2021-08-26] MEDS: tamsulosin 0.4 mg Capsule PO (08:07)
[2021-08-26] MEDS: cefTRIAXone 1,000 MG in sodium chloride 0.9% (plus) 50 ML 100 MG IV (11:16)
--- NOTE | 2021-08-26 11:25 | P.DS_ITS ---
Discharge Providers Date of Admission: 08/24/21 12:41 Date of Discharge: August 26, 2021 Attending Provider at Admission: Cristino Edwards MD Attending Provider at Discharge: Cristino Edwards MD Primary Care Provider: Susanne Gutierrez MD Diagnoses at Discharge Discharge Diagnosis (1) Symptomatic bradycardia: Status: Acute (2) Atrial flutter by electrocardiogram: Status: Acute (3) Accelerated hypertension: Status: Acute (4) LYNETTE (acute kidney injury): Status: Acute Reason for Visit Reason for Visit: LOW O2, KIDNEY PAIN Hospital Course Hospital Course Note written by Dr. Mtz: Joao Hawley is a 85 year old male with a longstanding history of hypertension and cardiac arrhythmia, he is present with complaints of generaliz ed weakness for the last 2 months.? He has been having some episodes of dizziness.? No syncopal episodes.? He was found to have heart rate in the 20s and 30s in the emergency room.? Apparently he did not have any chest pain or unusual shortness of breath.? His blood pressure was found to be in the 200 range.? During the emergency room stay, he started developing episodes of near syncope.? His heart rate was in the low 20s at that time.? He was given IV atropine.? Atropine raised the heart rate in the 30s but again went back down into the 20s.? Because of his symptomatic bradycardia, it was decided to put a transvenous temporary pacemaker.? This was discussed with the patient in detail which he understood well and consented to proceed. He has no previous history for any coronary artery disease, myocardial infarction or congestive heart failure.? He never been to a sql consultant prior to this ER visit.? He has no history for CVA.? He refused oral anticoagulation because of the history of easy bruising. He has a history of gouty arthritis.? No other specific complaints.? The patient has been taking metoprolol 25 mg p.o. twice daily.? It is not clear at this time as to how long he been taking this medication Hospital course Patient went for right femoral temporary pacemaker placement on 08/24, on 08/25 it was not capturing appropriately on 3 V around 6:45 AM, cardiology was notified, pacemaker current was increased to 6V (readjusted by Dr. Mtz), chest x-ray revealed lead in good place, Dr. Berger was consulted for placement of permanent pacemaker on 08/25 No perioperative complications. Patient will be discharged home with home health services, he will be given Bactrim to apply around the wound, see Dr. Berger in 1 week in his clinic today we are doing pacemaker interrogation and then he will be discharged from the ICU. Patient developed LYNETTE related to UTI/pyonephritis, he was kept on IV fluids and ceftriaxone perinephric stranding without obstruction, white count 6.2, creatinine at the time of admission 2.3, at the time of discharge 1.4 I will give him 1 week regimen of Levaquin. At the time of discharge patient is stating that he has been experiencing headache on and off, he has family history of brain aneurysm, he complained about pain just below his left ear, I did use autoscope to look at his eardrum, other than mild cerumen no signs of infection found, no lymphadenopathy. Patient is able to open his jaw. No vision changes, temporal area nontender. Will do CTA head and neck before discharge Patient has agreed for anticoagulating agent. patient stated that he was against it because at the time of diagnosis of atrial flutter he was hunting and afraid to get serious injuries while being on a blood thinner during hunting Physical Exam Narrative: EXAM NARRATIVE: Patient was laying supine Abdomen soft S1, S2 pacemaker dependent Nonfocal neuro exam Saturating well on room air Very pleasant and cooperative during my evaluation Urinary Catheter Management: Cunningham: Cath Placed During This Visit: yes, but has since been removed by the nurse Reason for Continuing Indwelling Catheter: Decision to DC Catheter Urinary Catheter Date of Insertion: 08/24/21 Urinary Catheter Time of Insertion: 20:17 Date Urinary Catheter Removed: 08/25/21 Time Urinary Catheter Discontinued: 23:30 Discharge Data Studies Completed and Pending Completed Studies During Hospitalization Category Date Time Status CT abdomen pelvis wo con [id number] Urgent Cat Scan 08/24/21 15:14 Completed EXECUTIVE SECRETARY request for service Routine Exams 08/24/21 18:33 Completed XR chest 1V portable [id number] Routine Exams 08/25/21 15:39 Completed XR chest 1V portable [id number] Stat Exams 08/24/21 10:54 Completed XR chest 1V portable [id number] Stat Exams 08/25/21 06:45 Completed CV. echo complete* [id number] Routine Ultrasound 08/25/21 06:00 Completed Pending at discharge Category Date Time Status Tick Panel Stat Lab 08/24/21 12:12 Results Urine Culture Routine Lab 08/24/21 20:12 Results Radiology Impressions Abdomen/Pelvis CT 08/24/21 15:14 IMPRESSION: 1. Moderate bilateral perinephric stranding with no obstruction. 2. Bilateral renal low-attenuation masses. These may be cysts but cannot further characterize on this unenhanced study. 3. Cholelithiasis without acute cholecystitis. 4. Moderate cardiomegaly. 5. Prior appendectomy. 6. Study is limited and compromised by motion. C-Arm Fluoroscopy 08/25/21 12:20 IMPRESSION: Images obtained for intraoperative purposes. Chest X-Ray 08/25/21 15:39 IMPRESSION: Interval placement of cardiac pacemaker in the left chest wall. No acute findings. Laboratory Results WBC 6.2 10^3/uL (4.0-10.0) 08/26/21 05:12 RBC 3.52 10^6/uL (4.1-5.3) L 08/26/21 05:12 Hgb 12.2 g/dL (11.7-16.6) 08/26/21 05:12 Hct 37.2 % (42.0-52.0) L 08/26/21 05:12 MCV 105.7 fl (80-94) H 08/26/21 05:12 MCH 34.7 pg (28.0-34.0) H 08/26/21 05:12 MCHC 32.8 g/dL (30.0-36.0) 08/26/21 05:12 RDW 13.1 % (12.1-15.1) 08/26/21 05:12 Plt Count 145 10^3/cmm (130-400) 08/26/21 05:12 MPV 12.5 fL (7.4-10.4) H 08/26/21 05:12 Neut % (Auto) 69.2 % 08/26/21 05:12 Lymph % (Auto) 15.6 % 08/26/21 05:12 [place] % (Auto) 9.4 % 08/26/21 05:12 Eos % (Auto) 5.0 % 08/26/21 05:12 Baso % (Auto) 0.5 % 08/26/21 05:12 Neut # (Auto) 4.26 10^3/uL (1.8-7.7) 08/26/21 05:12 Lymph # (Auto) 1.0 10^3/uL (0.8-4.8) 08/26/21 05:12 [place] # (Auto) 0.6 10^3/uL (0.2-0.9) 08/26/21 05:12 Eos # (Auto) 0.3 10^3/uL (0.0-0.8) 08/26/21 05:12 Baso # (Auto) 0.0 10^3/uL (0.0-0.1) 08/26/21 05:12 Nucleated RBC % (auto) 0 % 08/26/21 05:12 Nucleated RBCs # 0.0 /100WBC 08/26/21 05:12 Sodium 137 mmol/L (136-145) 08/26/21 05:12 Potassium 4.2 mmol/L (3.5-5.1) 08/26/21 05:12 Chloride 107 mmol/L (98-107) 08/26/21 05:12 Carbon Dioxide 15 mmol/L (22-29) L 08/26/21 05:12 Anion Gap 19.2 (5-19) H 08/26/21 05:12 BUN 28 mg/dL (8-23) H 08/26/21 05:12 Creatinine 1.4 mg/dL (0.7-1.2) H 08/26/21 05:12 GFR Calculation Not Reportable 08/26/21 05:12 Glucose 77 mg/dL (65-115) 08/26/21 05:12 Estimat Average Glucose 111 08/24/21 12:12 Hemoglobin A1c 5.5 % (4.0-6.0) 08/24/21 12:12 Calculated Osmolality 288 mOsm/kg (285-295) 08/26/21 05:12 Calcium 9.1 mg/dL (8.5-10.5) 08/26/21 05:12 Magnesium 1.8 mg/dL (1.7-2.3) 08/25/21 04:26 Total Bilirubin 0.8 mg/dL (0.15-1.2) 08/25/21 04:26 AST 27 U/L (0-40) 08/25/21 04:26 ALT 22 U/L (0-41) 08/25/21 04:26 Alkaline Phosphatase 114 IU/L (40-130) 08/25/21 04:26 Troponin T Baseline 43 ng/L (0-15) H 08/24/21 12:12 Troponin T 120 Minute 39.37 ng/L (0-15) H 08/24/21 14:01 Delta Troponin T -3.63 ABS# (0-10) L 08/24/21 14:01 Troponin T Hi Sens 6Hr 40.50 ng/L (0-15) H 08/24/21 19:16 Troponin T Hi Sens 6Hr Delta -2.50 ng/L (0-12) L 08/24/21 19:16 C-Reactive Protein 2.6 mg/L (0.0-4.9) 08/25/21 04:26 Total Protein 6.6 g/dL (6.6-8.7) 08/25/21 04:26 Albumin 3.6 g/dL (3.5-5.2) 08/25/21 04:26 Globulin 3.0 g/dL (1.3-4.6) 08/25/21 04:26 TSH 2.58 uIU/mL (0.27-4.20) 08/24/21 12:12 Free T4 1.36 ng/dL (0.82-1.77) 08/24/21 12:12 Urine Color Yellow (Yellow) 08/24/21 20:12 Urine Appearance Clear (CLEAR) 08/24/21 20:12 Urine pH 5 (5-7) 08/24/21 20:12 Ur Specific [place] 1.020 (1.005-1.030) 08/24/21 20:12 Urine Protein 3+ (Negative) H 08/24/21 20:12 Urine Glucose (UA) Norm (Normal) 08/24/21 20:12 Urine Ketones Negative (Negative) 08/24/21 20:12 Urine Blood 2+ (Negative) H 08/24/21 20:12 Urine Nitrate Negative (Negative) 08/24/21 20:12 Urine Bilirubin 1+ (Negative) H 08/24/21 20:12 Urine Urobilinogen Norm mg/dL (Negative) 08/24/21 20:12 Ur Leukocyte Esterase Negative (Negative) 08/24/21 20:12 Urine RBC 0-4 /hpf (0-2) H 08/24/21 20:12 Urine WBC 5-10 /hpf (0-5) H 08/24/21 20:12 Ur Squamous Epith Cells 0-4 /hpf (0-5) H 08/24/21 20:12 Amorphous Sediment Not Reportable 08/24/21 20:12 Urine Bacteria 1+ /hpf (NONE) H 08/24/21 20:12 Urine Mucus 1+ /hpf 08/24/21 20:12 Lyme Ab (Western Blot) <0.90 index 08/24/21 12:12 Vitals Last Vital Signs Temp 97.9 F 08/26/21 08:01 Pulse 70 08/26/21 10:00 Resp 19 H 08/26/21 10:00 BP 137/57 08/26/21 10:00 Pulse Ox 94 08/26/21 10:00 Discharge Plan Discharge Patient Disposition: Home Condition: Stable Prescriptions: New Bactrim DS 800-160 mg tablet 1 tab PO BID Qty: 4 0RF hydrocodone-acetaminophen 5-325 mg tablet 1 tab PO Q8H PRN (Reason: pain) Qty: 12 0RF levofloxacin 750 mg tablet 750 mg PO DAILY 4 Days Qty: 4 0RF Eliquis 5 mg tablet 5 mg PO BID Qty: 60 3RF Continued albuterol sulfate 90 mcg/actuation aerosol powdr breath activated 2 inh INHALATION Q6H PRN (Reason: Shortness Of Breath) 0RF alprazolam 0.25 mg tablet 0.25 mg PO BEDTIME PRN (Reason: Anxiety) 0RF amlodipine 10 mg tablet 5 mg PO DAILY 0RF colchicine 0.6 mg capsule 0.6 mg PO BID PRN (Reason: gout) 0RF ergocalciferol (vitamin D2) [Vitamin D2] 1,250 mcg (50,000 unit) capsule 1,250 mcg PO Q7D 0RF hydralazine 25 mg tablet 25 mg PO BID 0RF lovastatin 40 mg tablet 40 mg PO DAILY 0RF metoprolol tartrate 25 mg tablet 25 mg PO BID 0RF tramadol 50 mg tablet 50 mg PO TID PRN (Reason: pain) Qty: 7 0RF Discharge Orders: Discharge Order (Routine); Ordered 08/26/21 Ordered By: Omar Berger Other Ambulatory Orders: Basic Metabolic Panel (Routine) Timeframe: 3 Days Facility: [facility] - Location: Lab - Main Lab Ordered By: Cristino Edwards Referrals: [facility] [Provider Group] - 1 week (Pacemaker clinic) Susanne Gutierrez MD [Primary Care Provider] - 2 weeks Discharge Diet: Usual diet Discharge Activity: Limit activity as instructed Patient Instructions: Pacemaker (DC), Opioid Safety, Post Pacemaker - Smith Activity Restrictions/Additional Instructions: Remove bandage in 2 days No heavy lifting x 2 weeks Do not raise left hand above eye level for one week No swimming or tub baths x 2 weeks May begin showers without dressings on Saturday. Dry incision completely after showers. May recover if desired to prevent irritation from clothing. Report any redness, swelling, drainage, or increased pain Discharge Attestations Time Spent in Discharge Care*: other Quality Metrics Clinical Quality Measures [ No reported AMI, CVA or VTE this stay] Coding Level of Care Code Acute Chg FW DC note Diagnoses Symptomatic bradycardia R00.1 Atrial flutter by electrocardiogram I48.92 Accelerated hypertension I10 LYNETTE (acute kidney injury) N17.9
--- NOTE | 2021-08-26 11:36 | CTR_ITS ---
PROCEDURE INFORMATION: Exam: CT Angiography Head With Contrast, Arteriography Exam date and time: 08/26/2021 11:36 AM Age: 85 years old Clinical indication: Headache and other: L ear pain; Patient HX: HX of brain aneurysm with left ear pain and headache; Additional info: History of brain aneurysm, activeleft ear pain and headache TECHNIQUE: Imaging protocol: Computed tomography angiography of the head with contrast. Exam focused on the arteries. 3D rendering (Not supervised by radiologist): MIP and/or 3D reconstructed images were created by the technologist. Radiation optimization: All CT scans at this facility use at least one of these dose optimization techniques: automated exposure control; mA and/or kV adjustment per patient size (includes targeted exams where dose is matched to clinical indication); or iterative reconstruction. Contrast material: VISIPAQUE 320; Contrast volume: 95 ml; Contrast route: INTRAVENOUS (IV); COMPARISON: CT head wo con* [id number] 08/26/2021 1:21 PM RADIATION DOSE METRICS: Total DLP (mGy-cm): 2695.85 FINDINGS: ANTERIOR CIRCULATION: Right internal carotid artery: Diffuse wall calcification of the intracranial segment with mild luminal narrowing, no significant stenosis or occlusion. No aneurysm. Right middle cerebral artery: Unremarkable. No occlusion or significant stenosis. No aneurysm. Right anterior cerebral artery: Unremarkable. No occlusion or significant stenosis. No aneurysm. Left internal carotid artery: Diffuse wall calcification of the intracranial segment with mild luminal narrowing, no significant stenosis or occlusion. No aneurysm. Left middle cerebral artery: Unremarkable. No occlusion or significant stenosis. No aneurysm. Left anterior cerebral artery: Unremarkable. No occlusion or significant stenosis. No aneurysm. POSTERIOR CIRCULATION: Right vertebral artery: Unremarkable. No occlusion or significant stenosis. No aneurysm. Left vertebral artery: Unremarkable. No occlusion or significant stenosis. No aneurysm. Basilar artery: Unremarkable. No occlusion or significant stenosis. No aneurysm. Right posterior cerebral artery: Unremarkable. No occlusion or significant stenosis. No aneurysm. Left posterior cerebral artery: Unremarkable. No occlusion or significant stenosis. No aneurysm. Brain: No definite mass, mass effect, or midline shift. Cerebral ventricles: No ventriculomegaly. Bones/joints: Unremarkable. No acute fracture. Soft tissues: Unremarkable. Paranasal sinuses: Opacified frontal, ethmoid, and right maxillary sinus. Nasal passages are also opacified. There is also mucosal thickening of the sphenoid sinuses. PROCEDURE INFORMATION: Exam: CT Angiography Neck With Contrast Exam date and time: 08/26/2021 11:36 AM Age: 85 years old Clinical indication: Headache and other: L ear pain; Patient HX: HX of brain aneurysm with left ear pain and headache; Additional info: History of brain aneurysm, activeleft ear pain and headache TECHNIQUE: Imaging protocol: Computed tomography angiography of the neck with contrast. 3D rendering (Not supervised by radiologist): MIP and/or 3D reconstructed images were created by the technologist. Radiation optimization: All CT scans at this facility use at least one of these dose optimization techniques: automated exposure control; mA and/or kV adjustment per patient size (includes targeted exams where dose is matched to clinical indication); or iterative reconstruction. Contrast material: VISIPAQUE 320; Contrast volume: 95 ml; Contrast route: INTRAVENOUS (IV); COMPARISON: CT head wo con* [id number] 08/26/2021 1:21 PM RADIATION DOSE METRICS: Total DLP (mGy-cm): 2695.85 FINDINGS: Right common carotid artery: No stenosis. No dissection or occlusion. Right internal carotid artery: Mild stenosis at the origin of the right internal carotid artery with less than 50% luminal narrowing. No dissection or occlusion. Right external carotid artery: No occlusion or stenosis of the origin. Left common carotid artery: No stenosis. No dissection or occlusion. Left internal carotid artery: Mild stenosis at the origin of the left internal carotid artery with less than 50% luminal narrowing. No dissection or occlusion. Left external carotid artery: No occlusion or stenosis of the origin. Right vertebral artery: No stenosis. No dissection or occlusion. Left vertebral artery: No stenosis. No dissection or occlusion. Soft tissues: Normal. No significant soft tissue swelling. Bones/joints: No acute fracture. CT/CT angio headneck* [id number] IMPRESSION: 1. No large vessel stenosis or occlusion. No evidence of aneurysm. 2. Diffuse wall calcification of the intracranial segments of the internal carotid arteries with mild luminal narrowing. 3. Multifocal sinusitis. IMPRESSION: Mild stenosis at the origins of both internal carotid arteries. No significant stenosis or occlusion. REFERENCES: NASCET CRITERIA. The degree of internal carotid artery stenosis is based on NASCET criteria. Normal is no stenosis. Mild is less than 50% stenosis. Moderate is 50-69% stenosis. Severe is 70% to 99% stenosis. Total occlusion is no detectable patent lumen.
--- NOTE | 2021-08-26 12:35 | PC.NURSE ---
discussed with the pharmacist at [facility] in [facility] regarding transferring prescriptions to another pharmacy in order to allow the patient to obtain the medications upon discharge today. The pharmacist stated that he would transfer the antibiotics and eliquis to [facility] in [place], [place] and Dr. Edwards contacted regarding the narcotics. Dr. Edwards will place orders for narcotics to [facility] in [place], [place]
--- NOTE | 2021-08-26 13:00 | CTR_ITS ---
PROCEDURE INFORMATION: Exam: CT Head Without Contrast Exam date and time: 08/26/2021 1:00 PM Age: 85 years old Clinical indication: Headache and other: L ear pain; Patient HX: HX brain aneurysm w/ active L ear pain and headache; Additional info: Pre CT angio with contrast TECHNIQUE: Imaging protocol: Computed tomography of the head without contrast. Radiation optimization: All CT scans at this facility use at least one of these dose optimization techniques: automated exposure control; mA and/or kV adjustment per patient size (includes targeted exams where dose is matched to clinical indication); or iterative reconstruction. COMPARISON: No relevant prior studies available. RADIATION DOSE METRICS: Total DLP (mGy-cm): 1005.98 FINDINGS: Brain: No acute appearing brain parenchymal abnormality. No intracranial hemorrhage. No extraaxial fluid collections. There is diffuse cerebral atrophy. There are white matter low attenuation changes potentially related to chronic small vessel disease. Cerebral ventricles: No hydrocephalus when allowing for the atrophy. Paranasal sinuses: There is multifocal mucoperiosteal thickening. Mastoid air cells: The mastoid air cells are aerated. Auditory system: The external auditory canals are widely patent. The middle ears are aerated bilaterally. Bones/joints: No calvarial fracture. Soft tissues: No acute soft tissue abnormality. 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 CT/CT head wo con* [id number] IMPRESSION: No acute intracranial abnormality.
[2021-08-26] MEDS: iodixanol 320 mg/mL 100mL Btl IV (13:41)
--- NOTE | 2021-08-26 14:43 | PM.PN ---
Subjective Subjective: Interval history: Status post permanent pacemaker placement. No overnight pacemaker is working in good condition Medications: Medication Review Details: Current Medications Acetaminophen (Acetaminophen 500 Mg Tablet) 500 mg PO Q4H PRN PRN Reason: fever Last Admin: 08/25/21 05:18 Dose: 500 mg Documented by: Albuterol/Ipratropium (Ipratropium-Albuterol 3 Ml Neb) 3 ml INHALATION Q6H PRN PRN Reason: SHORTNESS OF BREATH Sodium Chloride (Sodium Chloride 0.9%) 1,000 mls @ 75 mls/hr IV .[id number] [facility] Last Admin: 08/25/21 02:12 Dose: 75 mls/hr Documented by: Dopamine HCl/Dextrose (Intropin Drip) 400 mg in 250 mls @ 18.375 mls/hr IV CONT [facility]; Protocol Last Admin: 08/24/21 23:39 Dose: Not Given Documented by: Piperacillin Sod/Tazobactam (Sod 3.375 gm/ Sodium Chloride) 50 mls @ 12.5 mls/hr IV Q8H [facility] Last Admin: 08/25/21 05:15 Dose: 12.5 mls/hr Documented by: Ondansetron HCl (Ondansetron 2 Mg/Ml Sdv 2 Ml) 4 mg IVP Q6H PRN PRN Reason: NAUSEA AND VOMITING Tamsulosin HCl (Tamsulosin 0.4 Mg Capsule) 0.4 mg PO DAILY [facility] Vitals/I&O/Wt Last Vital Signs Temp 98.4 F 08/26/21 12:00 Pulse 70 08/26/21 12:00 Resp 19 H 08/26/21 10:00 BP 126/57 08/26/21 12:00 Pulse Ox 97 08/26/21 12:00 08/25/21 08/26/21 08/26/21 22:59 06:59 14:59 Intake Total 1620 / 1670 240 / 1910 240 / 240 Output Total 250 / 650 Balance 1620 / 1270 -10 / 1260 240 / 240 Weight last 48 hrs Weight 216 lb 0.848 oz Physical Exam Chest: OTHER: GENERAL: Patient is alert, awake and oriented x3. Patient is awaiting pacemaker sleep NECK: No jugular vein distension. HEENT: No cyanosis. No icterus. No pallor. HEART: Regular S1 and S2. No murmur, rub or gallop. LUNGS: Clear to auscultate bilaterally. ABDOMEN: Soft, nontender and nondistended. Positive bowel sounds. No guarding, rebound or tenderness. CENTRAL NERVOUS SYSTEM: Grossly nonfocal. EXTREMITIES: Lower extremities right groin looks good Urinary Catheter Management: Cunningham: Cath Placed During This Visit: yes, but has since been removed by the nurse Reason for Continuing Indwelling Catheter: Decision to DC Catheter Urinary Catheter Date of Insertion: 08/24/21 Urinary Catheter Time of Insertion: 20:17 Date Urinary Catheter Removed: 08/25/21 Time Urinary Catheter Discontinued: 23:30 Data : 08/26/21 05:12 08/26/21 05:12 Micro: Microbiology 08/24/21 20:12 Urine Culture - Preliminary Urine Catheterized 08/25/21 06:30 C.difficile Toxin B Gene (PCR) - Final Stool - Stool Aspirate A&P Assessment and plan (1) Symptomatic bradycardia: Status post permanent pacemaker. There appeared to be swelling of the pacemaker site could be inflammation however cannot rule out pocket hematoma. Advised the patient to keep an eye on it if it starts hurting more he should let us know. At this point we will recommend holding Eliquis for 2 days after that it can be started. He has to follow-up with pacemaker clinic Status: Acute (2) Atrial flutter by electrocardiogram: Rate controlled s/p permanent pacemaker placement continue anticoagulation from tomorrow Status: Acute (3) Accelerated hypertension: Will optimize medicine use as needed IV hydralazine Status: Acute (4) LYNETTE (acute kidney injury): It is improving. Status: Acute Plan Highly symptomatic and refractory bradycardia with interventricular conduction delay and heart block with atrial flutter. Currently, heart rate controlled with temporary pacing. Plan: I have conferred with my colleague Dr. Mtz. We will plan for pacemaker implantation later this morning. Rationale was carefully discussed with Mr. Hawley. Details and risks of the procedure were carefully and frankly discussed. Risks reviewed include the possibility of , stroke, heart attack, major bleeding, infection, pneumonia, pneumothorax requiring chest tube, migration of the leads requiring revision, organ failure, failure to benefit, prolonged hospital stay, pain after the procedure, need for further procedures, inability to complete the procedure, and need for long-term followup and monitoring All questions were answered. Appropriate consents will be provided for review and signature. Attestations Medical Necessity Statement*: Patient can be discharged home. 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
--- NOTE | 2021-08-26 15:00 | PC.NURSE ---
pt educated on discharge medications, activity restrictions for the pacemaker and signs and symptoms of infection. no questions or concerns noted. IVs removed from bilateral ac spaces. cath tip intact. pt tolerated well. escorted out to personal vehicle with brother. no questions or concerns noted.
[2021-08-28 16:37] LABS: E. Chaffeensis AB IGG <1:64; E. Chaffeensis AB IGM <1:20
[2021-08-30 17:08] LABS: RMSF IGG DETECTED; RMSF IGM NOT DETECTED
== END 2021-08-26 15:15 | disposition home health service (06) | DRG 243 ==
LOC: ER 13:34 → ER IP 16:01 → ICU 23:38
PROVIDERS: Internal Medicine Cardiovascular Disease; Physician Assistant; Thoracic Surgery (Cardiothoracic Vascular Surgery); Admitting Provider Internal Medicine; Emergency Provider Family Medicine; PCP Family Medicine; Visit Provider Internal Medicine
PROC: 5A1223Z Performance of Cardiac Pacing, Continuous (ICD-10-PCS; principal; 2021-08-24 18:00)
PROC: 0JH604Z Insertion of Pacemaker, Single Chamber into Chest Subcutaneous Tissue and Fascia, Open Approach (ICD-10-PCS; principal; 2021-08-25 10:30)
DX: R00.1 Bradycardia, unspecified (principal); N17.9 Acute kidney failure, unspecified; N12 Tubulo-interstitial nephritis, not specified as acute or chronic; I48.91 Unspecified atrial fibrillation; J44.9 Chronic obstructive pulmonary disease, unspecified; M10.9 Gout, unspecified; E78.5 Hyperlipidemia, unspecified; I10 Essential (primary) hypertension; E87.5 Hyperkalemia; Z79.891 Long term (current) use of opiate analgesic; Z79.51 Long term (current) use of inhaled steroids
CPT/HCPCS: 33210; 36415; 51702; 70450; 70496; 70498; 71045; 74176; 76000; 80048; 80053; 81001; 83036; 83735; 84132; 84439; 84443; 84484; 85025; 86140; 86618; 86666; 86757; 87086; 87493; 93005; 93306; 96365; 96366; 96367; 96372; 96375; 99291; C1769; C1779; C1786; C1894; C1898; J0360; J0461; J0610; J0690; J0696; J1644; J1650; J2250; J2270; J2370; J2543; J2704; J3010; J7030; Q9967

== ENCOUNTER 2021-08-29 15:03 | Outpatient (CLI) | payer MEDICARE, OTHER, SELFPAY ==
[2021-08-29 16:05] LABS: Anion Gap 16.1 (5-19); Blood Urea Nitrogen 19 mg/dL (8-23); Calcium 9.6 mg/dL (8.5-10.5); Carbon Dioxide 18 mmol/L (22-29); Chloride 105 mmol/L (98-107); Glucose 91 mg/dL (65-115); Osmolality Calculated 282 mOsm/kg (285-295); Potassium 4.1 mmol/L (3.5-5.1); Sodium 135 mmol/L (136-145)
== END 2021-08-29 15:04 | disposition home or self-care (01) ==
PROVIDERS: Internal Medicine; PCP Family Medicine; Visit Provider Family Medicine
DX: I10 Essential (primary) hypertension (principal); N17.9 Acute kidney failure, unspecified
CPT/HCPCS: 80048

== ENCOUNTER 2021-09-05 12:54 | Emergency (ER) | payer MEDICARE, OTHER, SELFPAY ==
[2021-09-05 12:58] VITALS: BP 199/94; PULSE 79; RESP 20; TEMP 36.3; O2SAT 98; BMI 29.9
--- NOTE | 2021-09-05 13:50 | USCV_ITS ---
Joao Hawley Age: 85 Gender: M : 1935 Exam Date: 09/05/2021 14:52 Ordering Phys: Yony Deluna Technologist: SAMANTHA Exam Location: [facility] [place]_ Indication: Swelling and redness HISTORY: Upper extremity swelling. Recent pacemaker surgery. Pt noticed swelling 4 days post surgery. PROCEDURES: Venous duplex imaging was performed in only the left upper extremity. The following venous structures were evaluated: internal jugular vein, subclavian vein, axillary vein, and brachial veins. In addition, the basilic vein, cephalic vein, radial vein, and ulnar vein. FINDINGS: Normal 2-D, color Doppler and phasicity noted in the left upper extremity venous system extending from the left internal jugular vein through the main forearm. No thrombosis or occlusion noted. Edema noted in patient directed area of medial left AC space. CONCLUSIONS No evidence of thrombus of the left upper extremity veins. Edema in the antecubital space Hong Hughes MD (Electronically Signed) Final Date: 05 September 2021 16:36 S
--- NOTE | 2021-09-05 16:00 | ED_ITS ---
HPI - Extremity Problem General: Chief complaint: Extremity Problem,Nontraumatic Stated complaint: PACEMAKER PLACEMENT Time Seen by Provider: 09/05/21 15:54 History of Present Illness: Patient is an 85-year-old male comes to the ED with left arm redness and swelling. Patient says symptoms started yesterday. Redness and swelling is located on the left forearm just inferior to the elbow joint. Patient says he was on some antibiotics and just got off of them 2 days ago and then swelling and redness flared up. Denies any fever, chills, chest pain, shortness of breath, cough or hemoptysis.He has no other symptoms. His primary care doctor wanted him to come here to the ED to get ultrasound of left arm to check for blood clot. Associated symptoms: Deny chest pain, fever(s) or rash Review of Systems Const: Denies: fever(s), chills or fatigue Eyes: Denies: change in vision or eye discomfort ENMT: Denies: throat pain, odynophagia, nasal discharge or nasal congestion Card: Denies: chest pain, palpitations, edema, swelling of feet/ankles, dyspnea on exertion or orthopnea Resp: Denies: dyspnea, productive cough or non-productive cough GI: Denies: abdominal pain, nausea, vomiting, diarrhea, constipation or hematochezia : Denies: flank pain, difficulty urinating, dysuria or hematuria Musc: Denies: neck pain, back pain or extremity swelling Skin/Breast: Denies: rash or new lesions Neuro: Denies: headache(s) [facility] ED PFSH: Medical History A-fib COPD (chronic obstructive pulmonary disease) Gout Hyperlipidemia Hypertension Surgical History History of appendectomy Previous back surgery Status post placement of cardiac pacemaker Family History Other Family history non-contributory Social History Smoking and tobacco status: former smoker (36 years ago) Alcohol intake: current Alcohol intake frequency: few times a month Lives independently: Yes Housing: House Physical Exam Const: COMMON NORMALS: no acute distress, patient oriented x3 and alert GENERAL APPEARANCE: cooperative and comfortable HENMT: COMMON NORMALS: normocephalic HEAD & SCALP: normocephalic MOUTH: Normal oral and palatal mucosa present THROAT: posterior oropharynx normal and uvula midline Neck/C-Spine: COMMON NORMALS: supple GENERAL: Yes normal visual inspection Resp: COMMON NORMALS: normal respiratory effort, No retractions, No use of accessory muscles and clear to auscultation bilaterally AUSCULTATION: clear to auscultation bilaterally Cardio: COMMON NORMALS: regular rate, regular rhythm, S1 normal heart sound present, S2 normal heart sound present, No gallops present (Cardio), No clicks present (Cardio), No murmurs present (Cardio) and Peripheral pulses 2+ throughout RATE: regular rate RHYTHM: regular rhythm HEART SOUNDS: S1 normal heart sound present and S2 normal heart sound present PERIPHERAL PULSES: Peripheral pulses 2+ throughout GI: COMMON NORMALS: Normal to inspection, nondistended, normoactive bowel sounds present, Soft to palpation, non-tender and no masses PALPATION: Yes Soft to palpation : COMMON NORMALS: Yes no CVA tenderness BLADDER/KIDNEY EXAM: Yes no CVA tenderness Back/Pelvis: COMMON NORMALS: no CVA tenderness Extremity: NARRATIVE EXTREMITY EXAM: Patient's left forearm near elbow shows some erythema warmth and tenderness. Ra dial pulse 2+. Findings suggestive of possible cellulitis. GENERAL: Yes normal exam except as noted Neuro: COMMON NORMALS: patient oriented x3 SENSORIUM/ORIENTATION: Yes alert Skin: NARRATIVE SKIN EXAM: Patient's left forearm near elbow shows some erythema warmth and tenderness. Radial pulse 2+. Findings suggestive of possible cellulitis. GENERAL SKIN EXAM: dry skin Course Vital Signs: Vital signs: Vital Signs Temperature 98.6 F 09/05/21 16:19 Pulse Rate 79 09/05/21 16:19 Respiratory Rate 16 09/05/21 16:19 Blood Pressure 199/94 09/05/21 12:58 Pulse Oximetry 99 09/05/21 16:19 MDM - Extremity (Nontraumatic) Medical Decision Making Patient is an 85-year-old male comes to the ED with left arm redness and swelling. Patient says symptoms started yesterday. Redness and swelling is located on the left forearm just inferior to the elbow joint. Patient says he was on some antibiotics and just got off of them 2 days ago and then swelling and redness flared up. Denies any fever, chills, chest pain, shortness of breath, cough or hemoptysis. He has no other symptoms. Vitals stable. Exam suggestive of some cellulitis developing on left forearm. Ultrasound venous duplex of left upper extremity showed no DVT or blood clots seen. Patient diagnosed with cellulitis and discharged home with a prescription for cephalexin. Return to ED precautions given. He was told to follow-up with his PCP in the next 5 to 7 days for reevaluation. Return to ED precautions given. Patient understood and agree with plan. Imaging Data US Vascular: Radiologist's impression: Ultrasound venous duplex of left upper extremity?no DVT or blood clots seen. Discharge Plan Discharge Patient Disposition: Home Clinical Impression: Cellulitis Qualifiers: Site of cellulitis: extremity Site of cellulitis of extremity: upper extremity Laterality: left Qualified Code(s): L03.114 - Cellulitis of left upper limb Condition: Stable Prescriptions: New cephalexin 500 mg capsule 500 mg PO Q6H 7 Days Qty: 28 0RF No Action albuterol sulfate 90 mcg/actuation aerosol powdr breath activated 2 inh INHALATION Q6H PRN (Reason: Shortness Of Breath) 0RF alprazolam 0.25 mg tablet 0.25 mg PO BEDTIME PRN (Reason: Anxiety) 0RF amlodipine 10 mg tablet 5 mg PO DAILY 0RF colchicine 0.6 mg capsule 0.6 mg PO BID PRN (Reason: gout) 0RF ergocalciferol (vitamin D2) [Vitamin D2] 1,250 mcg (50,000 unit) capsule 1,250 mcg PO Q7D 0RF hydralazine 25 mg tablet 25 mg PO BID 0RF lovastatin 40 mg tablet 40 mg PO DAILY 0RF metoprolol tartrate 25 mg tablet 25 mg PO BID 0RF Bactrim DS 800-160 mg tablet 1 tab PO BID Qty: 4 0RF Eliquis 5 mg tablet 5 mg PO BID Qty: 60 3RF Senna-S 8.6-50 mg tablet 1 tab-cap PO DAILY Qty: 14 0RF tramadol 50 mg tablet 50 mg PO TID PRN (Reason: pain) Qty: 7 0RF Discharge Orders: Discharge ED (Routine); Ordered 09/05/21 Ordered By: Yony Deluna Referrals: Susanne Gutierrez MD [Primary Care Provider] - Discharge Diet: Regular Discharge Activity: Increase activity as tolerated Patient Instructions: Cellulitis (ED) Activity Restrictions/Additional Instructions: Follow-up with medical provider as directed in the next 5 to 7 days for reevaluation. Take medications as prescribed. Return to the ER or your medical provider if condition worsens. Please read and understand discharge instructions. Thank you for choosing [facility] for your healthcare needs today. Please realize this is an emergency room and that we are providing you with a medical screening exam and this may not be complete and all inclusive of all the testing and or work up that you may need to determine your ailment or severity of your illness. It is very important that you follow up as instructed or that you return to the Emergency Department should you have concerns or if your condition changes or worsens in any way. Coding Level of Care Code ED Environmental Programs Manager for Sally Fwgregorio Exam Detailed
[2021-09-05 16:19] VITALS: PULSE 79; RESP 16; TEMP 37; O2SAT 99
== END 2021-09-05 16:21 | disposition home or self-care (01) ==
PROVIDERS: Emergency Provider Physician Assistant; PCP Family Medicine
DX: L03.114 Cellulitis of left upper limb (principal); Z79.01 Long term (current) use of anticoagulants; J44.9 Chronic obstructive pulmonary disease, unspecified; E78.5 Hyperlipidemia, unspecified; I10 Essential (primary) hypertension; Z95.0 Presence of cardiac pacemaker; Z87.891 Personal history of nicotine dependence; M79.89 Other specified soft tissue disorders
CPT/HCPCS: 93971; 99282

== ENCOUNTER → 2021-09-29 10:21 | Outpatient (BNVA) | payer MEDICARE, OTHER, SELFPAY | PROVIDERS: PCP Family Medicine; Visit Provider Internal Medicine Cardiovascular Disease | DX: Z95.0 Presence of cardiac pacemaker (principal) | CPT/HCPCS: 93279 ==

== ENCOUNTER 2021-10-24 10:08 | Emergency (ER) | payer MEDICARE, OTHER, SELFPAY ==
[2021-10-24 10:40] VITALS: BP 115/69; PULSE 90; RESP 14; TEMP 36.7; O2SAT 100; BMI 21.9
[2021-10-24 10:54] VITALS: BP 190/75; PULSE 82; RESP 16; TEMP 36.8; O2SAT 99; BMI 29.2
[2021-10-24 11:41] VITALS: BP 159/84; PULSE 93; RESP 15; O2SAT 95
--- NOTE | 2021-10-24 11:55 | W.ED.GENADLT ---
HPI - General Adult General: Chief complaint: General Medical Stated complaint: severe gout/pain; heart flutters (pacemaker hx) Time Seen by Provider: 10/24/21 10:14 Source: patient Mode of arrival: ambulatory Limitations: no limitations History of Present Illness: 85-year-old male who presents emergency room with complaint of bilateral ankle knee and left elbow pain he is states he has having a gout flare. Usually Oleg from colchicine to allopurinol which he feels precipitated it. He is able to walk without difficulty. He has not had any falls or trauma. Onset (ago): day(s) Location: upper extremity (Left elbow) and lower extremity (Bilateral knees and feet) Severity: moderate Quality: sharp Pain Consistency: constant Relieving factors: rest Exacerbating factors: movement Associated symptoms: Deny chest pain, confusion, cough, diaphoresis, decreased appetite, dyspnea, fevers/chills, headache(s), malaise, nausea, rash, palpitations, seizures, short of breath, syncope, vomiting or weakness Treatments prior to arrival: none Review of Systems Const: Denies: fever(s), chills, body aches, change in appetite, malaise or diaphoresis ENMT: Denies: throat pain, ear or mastoid pain, nasal discharge or nasal congestion Card: Denies: chest pain, palpitations or syncope Resp: Denies: dyspnea GI: Denies: nausea or vomiting : Denies: flank pain, dysuria, urinary frequency or urinary urgency Skin/Breast: Denies: rash Neuro: Denies: headache(s) or confusion Michael/Lymph: Denies: easy bruising or easy bleeding [facility] ED PFSH: Medical History A-fib COPD (chronic obstructive pulmonary disease) Gout Hyperlipidemia Hypertension Surgical History History of appendectomy Previous back surgery Status post placement of cardiac pacemaker Family History Other Family history non-contributory Social History Smoking and tobacco status: former smoker (36 years ago) Alcohol intake: current Alcohol intake frequency: few times a month Lives independently: Yes Housing: House Physical Exam Const: COMMON NORMALS: no acute distress GENERAL APPEARANCE: cooperative and comfortable ORIENTATION/CONSCIOUSNESS: Yes awake, Yes oriented to person, Yes oriented to place and Yes oriented to time HENMT: COMMON NORMALS: normocephalic, atraumatic and hearing grossly normal bilaterally HEAD & SCALP: normocephalic and atraumatic Neck/C-Spine: COMMON NORMALS: no JVD Resp: COMMON NORMALS: normal respiratory effort, No retractions, No use of accessory muscles and clear to auscultation bilaterally EFFORT & INSPECTION: No pursed lip breathing AUSCULTATION: clear to auscultation bilaterally Cardio: COMMON NORMALS: no JVD, regular rate, regular rhythm and No murmurs present (Cardio) RATE: regular rate RHYTHM: regular rhythm GI: COMMON NORMALS: Soft to palpation and No hepatosplenomegaly present AUSCULTATION: Yes normoactive bowel sounds PALPATION: Yes Soft to palpation, No Tenderness to palpation present (GI), No Guarding due to palpation present (GI) and Yes No hepatosplenomegaly present Extremity: OTHER: Swelling moderate joint effusion in the right elbow. No joint effusions in the feet. No erythema or swelling around the knees bilaterally no abrasions. 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 He does have some significant arthritic changes. Questionable Charcot foot would not put him on prednisone for 7 days suspect this is gout flare in the elbow was precipitated by change from colchicine to allopurinol follow-up with his primary care doctor. Medical Records I reviewed the patient's medical records. Lab Data I reviewed the patient's lab results. : 10/24/21 12:15 10/24/21 13:08 Radiology Impressions Foot X-Ray 10/24/21 12:03 IMPRESSION: 1. No fracture or dislocation. Minimal degenerative changes. Elbow X-Ray 10/24/21 12:07 IMPRESSION: 1. No obvious acute fracture. 2. Joint effusion. Knee X-Ray 10/24/21 12:07 IMPRESSION: 1. Intact total knee replacement without complication. Laboratory Results WBC 10.5 10^3/uL (4.0-10.0) H 10/24/21 12:15 RBC 4.15 10^6/uL (4.1-5.3) 10/24/21 12:15 Hgb 14.1 g/dL (11.7-16.6) 10/24/21 12:15 Hct 44.1 % (42.0-52.0) 10/24/21 12:15 MCV 106.3 fl (80-94) H 10/24/21 12:15 MCH 34.0 pg (28.0-34.0) 10/24/21 12:15 MCHC 32.0 g/dL (30.0-36.0) 10/24/21 12:15 RDW 15.6 % (12.1-15.1) H 10/24/21 12:15 Plt Count 150 10^3/cmm (130-400) 10/24/21 12:15 MPV 11.4 fL (7.4-10.4) H 10/24/21 12:15 Neut % (Auto) 72.0 % 10/24/21 12:15 Lymph % (Auto) 14.7 % 10/24/21 12:15 Stevens % (Auto) 7.2 % 10/24/21 12:15 Eos % (Auto) 4.9 % 10/24/21 12:15 Baso % (Auto) 0.8 % 10/24/21 12:15 Neut # (Auto) 7.56 10^3/uL (1.8-7.7) 10/24/21 12:15 Lymph # (Auto) 1.6 10^3/uL (0.8-4.8) 10/24/21 12:15 Stevens # (Auto) 0.8 10^3/uL (0.2-0.9) 10/24/21 12:15 Eos # (Auto) 0.5 10^3/uL (0.0-0.8) 10/24/21 12:15 Baso # (Auto) 0.1 10^3/uL (0.0-0.1) 10/24/21 12:15 Nucleated RBC % (auto) 0 % 10/24/21 12:15 Nucleated RBCs # 0.0 /100WBC 10/24/21 12:15 ESR 32 mm/hr (0-10) H 10/24/21 12:15 Sodium 138 mmol/L (136-145) 10/24/21 13:08 Potassium 4.6 mmol/L (3.5-5.1) 10/24/21 13:08 Chloride 104 mmol/L (98-107) 10/24/21 13:08 Carbon Dioxide 23 mmol/L (22-29) 10/24/21 13:08 Anion Gap 15.6 (5-19) 10/24/21 13:08 BUN 16 mg/dL (8-23) 10/24/21 13:08 Creatinine 1.3 mg/dL (0.7-1.2) H 10/24/21 13:08 GFR Calculation Not Reportable 10/24/21 13:08 Glucose 100 mg/dL (65-115) 10/24/21 13:08 Calculated Osmolality 287 mOsm/kg (285-295) 10/24/21 13:08 Calcium 9.6 mg/dL (8.5-10.5) 10/24/21 13:08 Total Bilirubin 0.8 mg/dL (0.15-1.2) 10/24/21 13:08 AST 15 U/L (0-40) 10/24/21 13:08 ALT 14 U/L (0-41) 10/24/21 13:08 Alkaline Phosphatase 119 IU/L (40-130) 10/24/21 13:08 C-Reactive Protein Cancelled 10/24/21 12:15 Total Protein 6.7 g/dL (6.6-8.7) 10/24/21 13:08 Albumin 3.5 g/dL (3.5-5.2) 10/24/21 13:08 Globulin 3.2 g/dL (1.3-4.6) 10/24/21 13:08 Discharge Plan Discharge Patient Disposition: Home Clinical Impression: Gouty arthritis, Chronic osteoarthritis Condition: Stable Prescriptions: New prednisone 20 mg tablet 20 mg PO BID 7 Days Qty: 14 0RF No Action albuterol sulfate 90 mcg/actuation aerosol powdr breath activated 2 inh INHALATION Q6H PRN (Reason: Shortness Of Breath) 0RF alprazolam 0.25 mg tablet 0.25 mg PO BEDTIME PRN (Reason: Anxiety) 0RF lovastatin 40 mg tablet 40 mg PO QAM 0RF Eliquis 5 mg tablet 5 mg PO BID Qty: 60 3RF allopurinol 100 mg tablet 50 mg PO QAM 0RF tamsulosin 0.4 mg capsule 0.4 mg PO QAM 0RF fluticasone propionate 50 mcg/actuation spray,suspension 2 spray INTRANASAL DAILY 0RF Discharge Orders: Discharge ED (Routine); Ordered 10/24/21 Ordered By: Moises Maza Referrals: Susanne Gutierrez MD [Primary Care Provider] - Discharge Diet: Usual diet Discharge Activity: Increase activity as tolerated Activity Restrictions/Additional Instructions: Follow-up with your primary care doctor within the next week. Coding Level of Care Code ED Accounting Bookkeeper for Sally Higuera
--- NOTE | 2021-10-24 12:03 | XR_ITS ---
WS: [id number] Exam: XR foot RT min 3V* [id number] Date/Time of Exam: 10/24/2021 12:09 PM Reason For Exam: pain No acute fracture or dislocation. There is marked degenerative change of the subtalar joints with dep ression and flattening of the tarsal bones. Soft tissue swelling about the ankle. Vascular calcificat ions about the foot and ankle. Collapse the plantar arch. XR/XR foot RT min 3V* [id number] IMPRESSION: 1. No acute fracture. 2. Degenerative changes of the subtalar joints with collapse of the plantar arc h and tarsal bones. Charcot arthropathy might be a consideration. 3. Vascular calcifications about the foot and ankle. Soft tissue swelling as ab ove.
--- NOTE | 2021-10-24 12:03 | XR_ITS ---
WS: [email or web address] Exam: XR foot LT min 3V* [id number] Date/Time of Exam: 10/24/2021 12:09 PM Reason For Exam: pain No acute fracture or dislocation. Minimal degenerative changes in the midfoot joints. Vascular calcif ications about the ankle. No soft tissue foreign bodies. XR/XR foot LT min 3V* [id number] IMPRESSION: 1. No fracture or dislocation. Minimal degenerative changes.
--- NOTE | 2021-10-24 12:07 | XR_ITS ---
WS: [email or web address] Exam: XR elbow LT min 3V* [id number] Date/Time of Exam: 10/24/2021 12:09 PM Reason For Exam: pain No obvious acute fracture the elbow is noted. Joint effusion is present. Mild degenerative changes. Recommendations: If there is high clinical suspicion for acute fracture, immobilization and follow-up imaging in 7-10 days would be suggested. XR/XR elbow LT min 3V* [id number] IMPRESSION: 1. No obvious acute fracture. 2. Joint effusion.
--- NOTE | 2021-10-24 12:07 | XR_ITS ---
WS: [id number] Exam: XR knee RT 3V* [id number] Date/Time of Exam: 10/24/2021 12:09 PM Reason For Exam: pain A total knee prosthesis is in place in satisfactory position. No sign of loosening or fracture. No fabian int effusion. Unremarkable soft tissues. XR/XR knee RT 3V* [id number] IMPRESSION: 1. Intact total knee replacement without complication.
--- NOTE | 2021-10-24 12:07 | XR_ITS ---
WS: [email or web address] Exam: XR knee LT 3V* [id number] Date/Time of Exam: 10/24/2021 12:09 PM Reason For Exam: pain A total knee prosthesis is in place in satisfactory position. No sign of loosening or fracture. No fabian int effusion seen. Unremarkable soft tissues. XR/XR knee LT 3V* [id number] IMPRESSION: 1. Intact total knee replacement without obvious complication.
--- NOTE | 2021-10-24 12:17 | PC.PHAR ---
PT STATES HE TAKES CARE OF HIS OWN MEDICATIONS-PT STATES HE HASNT TAKEN METOPROLOL TARTRATE 25MG BIDFOR AT LEAST 6 WEEKS SINCE THE PACEMAKER WAS PLACED-
[2021-10-24 12:30] LABS: Basophils # 0.1 10^3/uL (0.0-0.1); Basophils % 0.8 %; Eosinophils # 0.5 10^3/uL (0.0-0.8); Eosinophils % 4.9 %; Hematocrit 44.1 % (42.0-52.0); Hemoglobin 14.1 g/dL (11.7-16.6); Lymphocytes # 1.6 10^3/uL (0.8-4.8); Lymphocytes % 14.7 %; Mean Corpuscular Volume 106.3 fl (80-94); Mean Platelet Volume 11.4 fL (7.4-10.4); Monocytes # 0.8 10^3/uL (0.2-0.9); Monocytes % 7.2 %; Neutrophils # 7.56 10^3/uL (1.8-7.7); Nucleated Red Blood Cells % 0 %; Platelet Count 150 10^3/cmm (130-400); Red Blood Count 4.15 10^6/uL (4.1-5.3); Red Cell Distribution Width 15.6 % (12.1-15.1); White Blood Count 10.5 10^3/uL (4.0-10.0)
[2021-10-24 12:54] LABS: Erythrocyte Sedimentation Rate 32 mm/hr (0-10)
[2021-10-24 13:38] LABS: Alanine Aminotransferase 14 U/L (0-41); Albumin Level 3.5 g/dL (3.5-5.2); Alkaline Phosphatase 119 IU/L (40-130); Anion Gap 15.6 (5-19); Aspartate Amino Transferase 15 U/L (0-40); Blood Urea Nitrogen 16 mg/dL (8-23); Calcium 9.6 mg/dL (8.5-10.5); Carbon Dioxide 23 mmol/L (22-29); Chloride 104 mmol/L (98-107); Globulin 3.2 g/dL (1.3-4.6); Glucose 100 mg/dL (65-115); Osmolality Calculated 287 mOsm/kg (285-295); Potassium 4.6 mmol/L (3.5-5.1); Sodium 138 mmol/L (136-145); Total Bilirubin 0.8 mg/dL (0.15-1.2); Total Protein 6.7 g/dL (6.6-8.7)
[2021-10-24 14:05] VITALS: BP 155/82; PULSE 92; RESP 15; TEMP 36.7; O2SAT 95
== END 2021-10-24 13:55 | disposition home or self-care (01) ==
PROVIDERS: Emergency Provider Family Medicine; PCP Family Medicine
DX: M10.9 Gout, unspecified (principal); M19.90 Unspecified osteoarthritis, unspecified site; M25.422 Effusion, left elbow; I48.91 Unspecified atrial fibrillation; J44.9 Chronic obstructive pulmonary disease, unspecified; I10 Essential (primary) hypertension; Z87.891 Personal history of nicotine dependence; Z96.653 Presence of artificial knee joint, bilateral; Z79.01 Long term (current) use of anticoagulants
CPT/HCPCS: 73080; 73562; 73630; 80053; 85025; 85651; 99284

== ENCOUNTER → 2021-11-02 10:41 | Outpatient (BNVA) | payer MEDICARE, OTHER, SELFPAY | PROVIDERS: PCP Family Medicine; Visit Provider Internal Medicine Cardiovascular Disease | DX: I48.92 Unspecified atrial flutter (principal); Z95.0 Presence of cardiac pacemaker; I10 Essential (primary) hypertension; E78.5 Hyperlipidemia, unspecified; M10.9 Gout, unspecified; Z87.891 Personal history of nicotine dependence | CPT/HCPCS: 99214 ==

== ENCOUNTER → 2022-02-09 10:42 | Outpatient (BNVA) | payer MEDICARE, OTHER, SELFPAY | PROVIDERS: PCP Family Medicine; Visit Provider Internal Medicine Cardiovascular Disease | DX: Z45.010 Encounter for checking and testing of cardiac pacemaker pulse generator [battery] (principal) | CPT/HCPCS: 93279 ==

== ENCOUNTER → 2022-05-10 10:18 | Outpatient (BNVA) | payer MEDICARE, OTHER, SELFPAY | PROVIDERS: PCP Family Medicine; Visit Provider Internal Medicine Cardiovascular Disease | DX: I48.92 Unspecified atrial flutter (principal); Z95.0 Presence of cardiac pacemaker; I10 Essential (primary) hypertension; E78.5 Hyperlipidemia, unspecified; Z87.891 Personal history of nicotine dependence | CPT/HCPCS: 99214 ==

== ENCOUNTER 2022-07-26 07:01 | Inpatient (IN) | payer MEDICARE, OTHER, SELFPAY ==
[2022-07-26] VITALS (14 sets, daily range): BP systolic 97–143; BP diastolic 52–75; PULSE 69–81; RESP 16–22; TEMP 36.6–37.1; O2SAT 90–97; BMI 28.7
--- NOTE | 2022-07-26 07:40 | CT_ITS ---
WS: [id number] CT ABDOMEN PELVIS TECHNIQUE: Contrast-enhanced CT of the abdomen and pelvis with coronal and sagittal reformatted image s. CLINICAL INFORMATION: abd pain COMPARISON: CT August 24, 2021 DLP: 739.[address] scans at [facility] use at least one of these dose optimization techniques: automated e xposure control; mA and/or kV adjustment per patient size (includes targeted exams where dose is matc hed to clinical indication); or iterative reconstruction. FINDINGS:Inflammatory stranding and edema with wall thickening involving the sigmoid colon LEFT lower quadrant consistent with acute diverticulitis. No evidence of drainable abscess or fluid collection. A few tiny locules of air consistent with microperforation. Recommend follow-up to resolution. Diver ticulosis. Normal caliber abdominal aorta. Aortic calcification. No aneurysm. Normal renal parenchymal enhanceme nt. No hydronephrosis. Bilateral renal cysts largest lower pole RIGHT kidney measuring 6.5 x 5.1 cm. These are similar in appearance to August 24, 2021. Bilateral renal cortical scarring. Heterogeneous ly enhancing prominent prostate measuring 4.7 CM. Prior appendectomy. Mild diffuse fatty infiltration of the liver. Cholelithiasis. Normal portal vein and splenic vein. Mi ld fatty atrophy of the pancreas. Splenic granulomas. Small esophageal hiatal hernia. Small noncalcif ied nodule RIGHT upper lobe measuring [address]/CT abdomen pelvis w con* [id number] IMPRESSION: 1. Inflammatory stranding and edema involving the sigmoid colon LEFT lower harry drant anteriorly compatible with acute diverticulitis. A few associated tiny lo cules of associated air compatible with microperforation. No drainable abscess or drainable fluid collection. 2. Cholelithiasis. 3. Bilateral renal cysts similar in appearance to August 24, 2021. 4. Prominent prostate measuring 4.7 CM. Recommend correlation PSA. 5. Small esophageal hiatal hernia. 6. No other acute findings. Notified Moises Maza DO at 07/26/2022 9:09 AM.
--- NOTE | 2022-07-26 07:41 | XR_ITS ---
WS: [id number] Portable AP upright chest, 07/26/2022 Clinical Data: dyspnea/cough Comparison: Portable chest, 08/25/2021 Findings: No nodules, masses or effusions are seen. The heart is normal. The pulmonary vascularity is not increased. No pneumonia or pneumothorax is seen. The aortic arch and descending thoracic aorta a re minimally tortuous. There is a cardiac pacemaker unchanged in position. There is a dental implant overlying the left mandible. XR/XR chest 1V portable [id number] Impression: Atherosclerosis and cardiac pacemaker.
[2022-07-26] MEDS: ondansetron 2 mg/ML SDV 2 mL 4 MG IVP (07:55)
[2022-07-26] MEDS: morphine 4 mg/mL SDV 1 mL IVP (07:55)
[2022-07-26] MEDS: sodium chloride 0.9% 1,000 ML 999 ML IV (07:55)
--- NOTE | 2022-07-26 07:56 | W.ED.ABDPA2 ---
HPI - Abdominal Pain General: Chief Complaint: Abdominal Pain Stated Complaint: Lower abd pain Time Seen by Provider: 07/26/22 07:11 Source: patient Mode of arrival: ambulatory History of Present Illness: 86-year-old male presents emergency room left lower quadrant pain. He states yesterday morning began to feel uncomfortable but was the last time he ate. He has not had any bowel movements his abdomen feels bloated and full exquisitely tender. Denies any hematochezia or melena. No dysuria urgency or frequency or hematuria MD elicited complaint: abdominal pain Onset (ago): day(s) (1) Pain Consistency: constant Location: LLQ Severity: severe Quality: stabbing and sharp Exacerbating factors: movement Relieving factors: rest Associated Symptoms: Reports anorexia, bloating, change in bowel habits, GI cramping, nausea and poor appetite; Denies belching, change in stool character, chills, coffee ground emesis, constipation, diarrhea, dyspepsia, dysuria, excessive flatus, fever(s), heartburn, hematochezia, hematuria, hematemesis, fecal incontinence, loose stools, melena, syncope and vomiting Review of Systems Const: Denies: fever(s), chills, fatigue or malaise ENMT: Denies: throat pain, ear or mastoid pain, nasal discharge or nasal congestion Card: Denies: chest pain, palpitations, irregular heart rhythm, edema or syncope Resp: Denies: dyspnea, productive cough or non-productive cough GI: Reports: abdominal pain, nausea, bloating, GI cramping and change in bowel habits; Denies: vomiting, hematemesis, coffee ground emesis, heartburn, diarrhea, constipation, belching, excessive flatus, fecal incontinence, change in stool character, hematochezia or melena : Denies: dysuria, urinary frequency, urinary urgency or hematuria Skin/Breast: Denies: rash or pruritus PFSH ED PFSH: Medical History A-fib Atrial flutter by electrocardiogram Bradycardia COPD (chronic obstructive pulmonary disease) Gout Hyperlipidemia Hypertension Near syncope Surgical History History of appendectomy Previous back surgery Status post placement of cardiac pacemaker Family History Other Family history non-contributory Social History Smoking and tobacco status: former smoker Alcohol intake: current Alcohol intake frequency: few times a month Lives independently: Yes Housing: House Physical Exam Const: COMMON NORMALS: no acute distress GENERAL APPEARANCE: cooperative and comfortable ORIENTATION/CONSCIOUSNESS: Yes awake, Yes oriented to person, Yes oriented to place and Yes oriented to time HENMT: COMMON NORMALS: normocephalic, atraumatic and hearing grossly normal bilaterally HEAD & SCALP: normocephalic and atraumatic Resp: COMMON NORMALS: normal respiratory effort, No retractions, No use of accessory muscles and clear to auscultation bilaterally AUSCULTATION: clear to auscultation bilaterally Cardio: COMMON NORMALS: regular rate, regular rhythm and No murmurs present (Cardio) RATE: regular rate RHYTHM: regular rhythm GI: COMMON NORMALS: No hepatosplenomegaly present AUSCULTATION: Yes normoactive bowel sounds PALPATION: Yes Tenderness to palpation present (GI) Details: LLQ, Yes Guarding due to palpation present (GI) in the LLQ and Yes No hepatosplenomegaly present : COMMON NORMALS: Yes no CVA tenderness BLADDER/KIDNEY EXAM: Yes no CVA tenderness Back/Pelvis: COMMON NORMALS: no CVA tenderness Extremity: COMMON NORMALS: normal to inspection, capillary refill normal, no clubbing, cyanosis or edema, no calf tenderness and no pedal edema Neuro: SENSORIUM/ORIENTATION: Yes oriented to person, Yes oriented to place and Yes oriented to time Skin: COMMON NORMALS: no rashes or lesions noted GENERAL SKIN EXAM: no rashes or lesions noted Course Vital Signs: Vital signs: Vital Signs Temperature 97.5 F L 07/27/22 07:52 Pulse Rate 71 07/27/22 07:52 Respiratory Rate 17 07/27/22 07:52 Blood Pressure 119/72 07/27/22 07:52 Pulse Oximetry 95 07/27/22 07:52 Oxygen Delivery Me thod 07/27/22 07:52 MDM - Abdominal Pain Medical Decision Making CT shows diverticulitis with microperforations no abscess formation start Zosyn discussed with patient and family will admit. Admit with hospitalist consult surgery. Dr. Vera has been notified, at the time I called him he was scrubbed into the case. Information was relayed via the staff in the OR. Medical Records I reviewed the patient's medical records. Lab Data I reviewed the patient's lab results. 07/26/22 07:50 07/26/22 07:50 Labs/Radiology: Radiology Impressions Abdomen/Pelvis CT 07/26/22 07:40 IMPRESSION: 1. Inflammatory stranding and edema involving the sigmoid colon LEFT lower quadrant anteriorly compatible with acute diverticulitis. A few associated tiny locules of associated air compatible with microperforation. No drainable abscess or drainable fluid collection. 2. Cholelithiasis. 3. Bilateral renal cysts similar in appearance to August 24, 2021. 4. Prominent prostate measuring 4.7 CM. Recommend correlation PSA. 5. Small esophageal hiatal hernia. 6. No other acute findings. Notified Moises Maza DO at 07/26/2022 9:09 AM. Chest X-Ray 07/26/22 07:41 Impression: Atherosclerosis and cardiac pacemaker. Laboratory Results WBC 10.7 10^3/uL (4.0-10.0) H 07/26/22 07:50 RBC 4.29 10^6/uL (4.1-5.3) 07/26/22 07:50 Hgb 15.2 g/dL (11.7-16.6) 07/26/22 07:50 Hct 46.2 % (42.0-52.0) 07/26/22 07:50 MCV 107.7 fl (80-94) H 07/26/22 07:50 MCH 35.4 pg (28.0-34.0) H 07/26/22 07:50 MCHC 32.9 g/dL (30.0-36.0) 07/26/22 07:50 RDW 14.1 % (12.1-15.1) 07/26/22 07:50 Plt Count 162 10^3/cmm (130-400) 07/26/22 07:50 MPV 10.9 fL (7.4-10.4) H 07/26/22 07:50 Neut % (Auto) 76.2 % 07/26/22 07:50 Lymph % (Auto) 13.1 % 07/26/22 07:50 Burt % (Auto) 8.0 % 07/26/22 07:50 Eos % (Auto) 2.0 % 07/26/22 07:50 Baso % (Auto) 0.4 % 07/26/22 07:50 Neut # (Auto) 8.13 10^3/uL (1.8-7.7) H 07/26/22 07:50 Lymph # (Auto) 1.4 10^3/uL (0.8-4.8) 07/26/22 07:50 Burt # (Auto) 0.9 10^3/uL (0.2-0.9) 07/26/22 07:50 Eos # (Auto) 0.2 10^3/uL (0.0-0.8) 07/26/22 07:50 Baso # (Auto) 0.0 10^3/uL (0.0-0.1) 07/26/22 07:50 Nucleated RBC % (auto) 0 % 07/26/22 07:50 Nucleated RBCs # 0.0 /100WBC 07/26/22 07:50 PT 21.10 SECONDS (12.1-14.9) H 07/26/22 08:00 INR 1.78 (0.8-1.2) H 07/26/22 08:00 APTT 38.3 SECONDS (23.9-36.7) H 07/26/22 08:00 Sodium 138 mmol/L (136-145) 07/26/22 07:50 Potassium 4.4 mmol/L (3.5-5.1) 07/26/22 07:50 Chloride 103 mmol/L (98-107) 07/26/22 07:50 Carbon Dioxide 23 mmol/L (22-29) 07/26/22 07:50 Anion Gap 16.4 (5-19) 07/26/22 07:50 BUN 22 mg/dL (8-23) 07/26/22 07:50 Creatinine 1.4 mg/dL (0.7-1.2) H 07/26/22 07:50 GFR Calculation Not Reportable 07/26/22 07:50 Glucose 104 mg/dL (65-115) 07/26/22 07:50 Calculated Osmolality 290 mOsm/kg (285-295) 07/26/22 07:50 Calcium 9.3 mg/dL (8.5-10.5) 07/26/22 07:50 Iron 56 ug/dL (59-158) L 07/26/22 07:50 TIBC 400 mcg/dl 07/26/22 07:50 % Saturation 14.0 % (20-50) L 07/26/22 07:50 Unsat Iron Binding 344 ug/dL (112-347) 07/26/22 07:50 Total Bilirubin 1.3 mg/dL (0.15-1.2) H 07/26/22 07:50 AST 16 U/L (0-40) 07/26/22 07:50 ALT 17 U/L (0-41) 07/26/22 07:50 Alkaline Phosphatase 158 U/L (40-130) H 07/26/22 07:50 C-Reactive Protein 53.1 mg/L (0.0-4.9) H 07/26/22 07:50 Total Protein 7.6 g/dL (6.6-8.7) 07/26/22 07:50 Albumin 4.1 g/dL (3.5-5.2) 07/26/22 07:50 Globulin 3.5 g/dL (1.3-4.6) 07/26/22 07:50 Vitamin B12 229 pg/mL (232-1245) L 07/26/22 07:50 Folate 4.7 ng/mL (4.5-32.2) 07/26/22 07:50 Procalcitonin 0.11 ng/mL (0-0.5) 07/26/22 07:50 TSH 2.36 uIU/mL (0.27-4.20) 07/26/22 07:50 Urine Color Dark yellow (Yellow) 07/26/22 08:42 Urine Appearance Clear (CLEAR) 07/26/22 08:42 Urine pH 5 (5-7) 07/26/22 08:42 Ur Specific [place] 1.020 (1.005-1.030) 07/26/22 08:42 Urine Protein 1+ (Negative) H 07/26/22 08:42 Urine Glucose (UA) Norm (Normal) 07/26/22 08:42 Urine Ketones Negative (Negative) 07/26/22 08:42 Urine Blood Neg (Negative) 07/26/22 08:42 Urine Nitrate Negative (Negative) 07/26/22 08:42 Urine Bilirubin 1+ (Negative) H 07/26/22 08:42 Urine Urobilinogen Norm mg/dL (Negative) 07/26/22 08:42 Ur Leukocyte Esterase Negative (Negative) 07/26/22 08:42 Urine RBC 0-4 /hpf (0-2) H 07/26/22 08:42 Urine WBC 0-4 /hpf (0-5) H 07/26/22 08:42 Ur Squamous Epith Cells 0-4 /hpf (0-5) H 07/26/22 08:42 Amorphous Sediment Not Reportable 07/26/22 08:42 Urine Bacteria Trace /hpf (NONE) 07/26/22 08:42 Hyaline Casts Rare /lpf 07/26/22 08:42 Urine Mucus 1+ /hpf 07/26/22 08:42 Discharge Plan Discharge Patient Disposition: Admitted As Inpatient Admit Provider: Vishal Dejesus Clinical Impression: Diverticulitis of large intestine with perforation, Atrial flutter by electrocardiogram Condition: Stable Coding Level of Care Code ED Industrial Safety And Health Manager for Chg Fwd Exam Comprehensive
[2022-07-26 07:57] LABS: Basophils % 0.4 %; Eosinophils # 0.2 10^3/uL (0.0-0.8); Hematocrit 46.2 % (42.0-52.0); Hemoglobin 15.2 g/dL (11.7-16.6); Lymphocytes # 1.4 10^3/uL (0.8-4.8); Lymphocytes % 13.1 %; Mean Corpuscular HGB Conc 32.9 g/dL (30.0-36.0); Mean Corpuscular Hemoglobin 35.4 pg (28.0-34.0); Mean Corpuscular Volume 107.7 fl (80-94); Mean Platelet Volume 10.9 fL (7.4-10.4); Monocytes # 0.9 10^3/uL (0.2-0.9); Neutrophils # 8.13 10^3/uL (1.8-7.7); Neutrophils % 76.2 %; Nucleated Red Blood Cells % 0 %; Platelet Count 162 10^3/cmm (130-400); Red Blood Count 4.29 10^6/uL (4.1-5.3); Red Cell Distribution Width 14.1 % (12.1-15.1); White Blood Count 10.7 10^3/uL (4.0-10.0)
--- NOTE | 2022-07-26 08:11 | ECG_ITS ---
[facility] Test Date: 2022-07-26 Pat Name: Joao Hawley Department: Room: Gender: Male Booking Manager: : 1935 Requested By: Moises White Order Number: [id number] Maryan MD: Abdiel Mtz M.D. Measurements Intervals [place] Rate: 72 P: 0 AK: 0 QRS: -87 QRSD: 189 T: 85 QT: 459 QTc: 503 Interpretive Statements ELECTRONIC VENTRICULAR PACEMAKER ABNORMAL RHYTHM ECG Compared to ECG 08/26/2021 06:36:13 No significant changes Electronically Signed On 07-26-2022 21:08:28 METAL ROLLING MILL OPERATOR by Abdiel Mtz M.D. [email or web address]
[2022-07-26 08:15] LABS: Alanine Aminotransferase 17 U/L (0-41); Albumin Level 4.1 g/dL (3.5-5.2); Alkaline Phosphatase 158 U/L (40-130); Anion Gap 16.4 (5-19); Aspartate Amino Transferase 16 U/L (0-40); Blood Urea Nitrogen 22 mg/dL (8-23); Calcium 9.3 mg/dL (8.5-10.5); Carbon Dioxide 23 mmol/L (22-29); Chloride 103 mmol/L (98-107); Globulin 3.5 g/dL (1.3-4.6); Glucose 104 mg/dL (65-115); Osmolality Calculated 290 mOsm/kg (285-295); Potassium 4.4 mmol/L (3.5-5.1); Sodium 138 mmol/L (136-145); Total Bilirubin 1.3 mg/dL (0.15-1.2); Total Protein 7.6 g/dL (6.6-8.7)
[2022-07-26] MEDS: iohexol 350 mg/mL 500 mL Btl (per mL) IV (08:40)
[2022-07-26 09:18] LABS: Add Urine Culture? No; Add Urine Microscopic? YES; Bacteria Urine TRACE /hpf; Bilirubin Urine 1+ (Negative); Blood Urine Neg (Negative); Glucose Urine UA Norm (Normal); Hyaline Casts Urine RARE /lpf; Ketones Urine Negative (Negative); Leukocyte Esterase Urine Negative (Negative); Mucus Urine 1+ /hpf; Nitrate Urine Negative (Negative); Protein Urine 1+ (Negative); RBC Urine 0-4 /hpf (0-2); Squamous Epithelial Cell Urine 0-4 /hpf (0-5); Urine Appearance Clear (CLEAR); Urine Color Dark Yellow (Yellow); Urobilinogen Urine Norm (Negative); WBC Urine 0-4 /hpf (0-5); pH Urine 5 (5-7)
[2022-07-26] MEDS: piperacillin-tazobactam 3.375 GM in sodium chloride 0.9% (plus) 50 ML IV ×3 (09:18→23:47)
[2022-07-26 10:05] LABS: INR 1.78 (0.8-1.2); Partial Thromboplastin Time 38.3 SECONDS (23.9-36.7)
[2022-07-26] MEDS: D5-NS 0.45% + KCL 20 mEq 20 MEQ/1,000 ML BAG 100 MEQ IV ×2 (11:58→20:10)
--- NOTE | 2022-07-26 13:27 | PM.HP ---
Providers/Chief Complaint Admitting Physician: Vishal Dejesus MD Primary Care Provider: Susanne Gutierrez MD Chief Complaint: Lower abd pain History of Present Illness Joao Hawley is a 86 year old male with past medical history of atrial fibrillation on chronic anticoagulation with Coumadin, pacemaker implantation, hypertension, gout who presented to the ER today because of worsening abdominal pain in the left lower quadrant since Saturday. Today is . As per patient his last bowel movement was Saturday afternoon after which he started having worsening abdominal pain. He complains of nausea without any vomiting. His last colonoscopy was more than 10 years ago at [place] in which she was found to have few polyps. Patient denies of having any fevers, dysuria, hematemesis, melena. Review of Systems General: Reports: 10 or more systems reviewed and unremarkable except in HPI and below Const: Denies: fever(s), chills, body aches, change in appetite, change in weight, malaise, night sweats, diaphoresis, change in sleep pattern, daytime sleepiness or snoring Eyes: Denies: change in vision, blurry vision, photophobia, eye discomfort or eye discharge ENMT: Denies: throat pain, enlarged tonsils, hoarseness, mouth pain, oral sores, dry mouth, tinnitus, nasal congestion or post nasal drip Card: Denies: chest pain, palpitations, irregular heart rhythm, edema, swelling of feet/ankles, lightheadedness, syncope, pre-syncope, dyspnea on exertion, orthopnea, leg pain with exertion or acrocyanosis Resp: Denies: dyspnea, productive cough, non-productive cough, wheezing, stridor, pain on inspiration, change in phlegm color, hemoptysis or chest congestion GI: Denies: abdominal pain, nausea, vomiting, hematemesis, coffee ground emesis, dysphagia, heartburn, diarrhea, constipation, bloating, GI cramping, change in bowel habits, pain on defecation, hematochezia or melena : Denies: flank pain, difficulty urinating, dysuria, urinary frequency, urinary urgency, urinary hesitancy, urinary dribbling, difficulty starting urination, change in urine stream, nocturia or hematuria Musc: Denies: neck pain, back pain, extremity pain, joint pain, joint swelling, joint redness, joint stiffness or limited range of motion Neuro: Denies: headache(s), numbness in extremities, weakness in extremities, sensory changes, lack of coordination, difficulty walking, frequent falls, dizziness, vertigo, confusion, Slurred speech present, difficulty communicating thoughts or seizure-like activity Psych: Denies: anxiety, depression, mood swings, panic attacks, hopelessness or irritability Endo: Denies: polyuria, polydipsia, tired all the time, cold intolerance, excessive sweating, flushing or heat intolerance Michael/Lymph: Denies: easy bruising or easy bleeding All/Imm: Denies: tongue swelling, facial swelling or acute wheezing Medications/Allergies Home Medications Medication Instructions Recorded Confirmed Last Taken Type alprazolam 0.25 mg tablet 0.25 mg PO BEDTIME PRN Anxiety 12/03/19 07/26/22 07/25/22 History allopurinol 100 mg tablet 50 mg PO QAM 10/24/21 07/26/22 07/26/22 History tamsulosin 0.4 mg capsule 0.4 mg PO QAM 10/24/21 07/26/22 07/26/22 History colchicine 0.6 mg capsule 0.6 mg PO BID 11/02/21 07/26/22 07/26/22 History (Mitigare) warfarin 4 mg tablet 2 mg PO DAILY 05/09/22 07/26/22 07/26/22 History metoprolol tartrate 25 mg tablet 50 mg PO BID #180 tabs 05/29/22 07/26/22 07/26/22 Rx amlodipine 5 mg tablet 2.5 mg PO DAILY 07/26/22 07/26/22 07/26/22 History Allergies Allergy/AdvReac Type Severity Reaction Status Date / Time [id number]-WFM-IsY Reductase AdvReac Severe Myalgia Verified 07/26/22 09:46 Inhibitor PFSH Acute PFSH: Medical History (Updated 07/26/22 @ 13:30 by Vishal Dejesus MD) A-fib Atrial flutter by electrocardiogram Bradycardia COPD (chronic obstructive pulmonary disease) Gout Hyperlipidemia Hypertension Near syncope Surgical History History of appendectomy Previous back surgery Status post placement of cardiac pacemaker Family History Other Family history non-contributory Social History Smoking and tobacco status: former smoker Alcohol intake: current Alcohol intake frequency: few times a month Lives independently: Yes Housing: House Vitals/I&O/Wt Last Vital Signs Temp 97.8 F 07/26/22 11:29 Pulse 69 07/26/22 11:29 Resp 16 07/26/22 11:29 BP 127/75 07/26/22 11:29 Pulse Ox 96 07/26/22 11:29 O2 Del Method 07/26/22 11:29 07/25/22 07/26/22 07/26/22 22:59 06:59 14:59 Intake Total 1050 / 1050 Balance 1050 / 1050 Weight last 48 hrs Weight 90.718 kg Physical Exam Narrative: General: No acute distress, AO x3 HEENT: PERRLA, pupils bilaterally equal and reactive Chest: Normal vesicular breath sounds, no added sounds, equal good air entry bilaterally CVS: S1-S2 regular, no murmurs, no tachycardia, no gallops, no rubs Abdomen: Soft, tenderness in left lower quadrant no organomegaly, bowel sounds sluggish Neuro: No focal deficits, no facial deformity, AO x3, power 5/5 in all limbs Data 07/26/22 07:50 07/26/22 07:50 Other Labs: Abnormal lab results 07/26/22 07/26/22 07/26/22 Range/Units 07:50 07:50 08:00 WBC 10.7 H (4.0-10.0) 10^3/uL MCV 107.7 H (80-94) fl MCH 35.4 H (28.0-34.0) pg MPV 10.9 H (7.4-10.4) fL Neut # (Auto) 8.13 H (1.8-7.7) 10^3/uL PT 21.10 H (12.1-14.9) SECONDS INR 1.78 H (0.8-1.2) APTT 38.3 H (23.9-36.7) SECONDS Creatinine 1.4 H (0.7-1.2) mg/dL Total Bilirubin 1.3 H (0.15-1.2) mg/dL Alkaline Phosphatase 158 H (40-130) U/L Urine Protein (Negative) Urine Bilirubin (Negative) Urine RBC (0-2) /hpf Urine WBC (0-5) /hpf Ur Squamous Epith Cells (0-5) /hpf 07/26/22 Range/Units 08:42 WBC (4.0-10.0) 10^3/uL MCV (80-94) fl MCH (28.0-34.0) pg MPV (7.4-10.4) fL Neut # (Auto) (1.8-7.7) 10^3/uL PT (12.1-14.9) SECONDS INR (0.8-1.2) APTT (23.9-36.7) SECONDS Creatinine (0.7-1.2) mg/dL Total Bilirubin (0.15-1.2) mg/dL Alkaline Phosphatase (40-130) U/L Urine Protein 1+ H (Negative) Urine Bilirubin 1+ H (Negative) Urine RBC 0-4 H (0-2) /hpf Urine WBC 0-4 H (0-5) /hpf Ur Squamous Epith Cells 0-4 H (0-5) /hpf Radiology Impressions Abdomen/Pelvis CT 07/26/22 07:40 IMPRESSION: 1. Inflammatory stranding and edema involving the sigmoid colon LEFT lower quadrant anteriorly compatible with acute diverticulitis. A few associated tiny locules of associated air compatible with microperforation. No drainable abscess or drainable fluid collection. 2. Cholelithiasis. 3. Bilateral renal cysts similar in appearance to August 24, 2021. 4. Prominent prostate measuring 4.7 CM. Recommend correlation PSA. 5. Small esophageal hiatal hernia. 6. No other acute findings. Notified Moises Maza DO at 07/26/2022 9:09 AM. Chest X-Ray 07/26/22 07:41 Impression: Atherosclerosis and cardiac pacemaker. Micro: Microbiology 07/26/22 08:00 Blood Culture - Preliminary Blood SPECIMEN COLLECTED 07/26/22 08:54 Blood Culture - Preliminary Blood SPECIMEN COLLECTED A&P Assessment and plan (1) Diverticulitis of large intestine with perforation: As seen on CT scan. Surgery consulted from ER. N.p.o. for conservative treatment. IV fluids. Zofran as needed, Protonix. Pain control with morphine 1 mg IV every 4 hour as needed. Early ambulation, out of bed to chair. Check MRSA swab, blood culture. For now empirically start on Zosyn. Stool studies. (2) Atrial flutter by electrocardiogram: Rate controlled. IV metoprolol 5 mg every 4 hours as needed for heart rate of more than 100. Telemetry. Takes Coumadin at home for anticoagulation. Appreciate INR. Switch to Lovenox 1 mg/kg body weight every 12 hourly as per creatinine clearance as patient is n.p.o. (3) Status post placement of cardiac pacemaker: (4) Accelerated hypertension: Goal blood pressure less than 140/90 mmHg. Continue to monitor. Plan Full code. Full dose Lovenox will suffice as DVT prophylaxis Protonix for PUD prophylaxis NPO. Attestations Medical Necessity Statement*: Admission for more than 2 midnights for management of diverticulitis of large intestine with microperforation without abscess or bleeding requiring IV antibiotics and conservative treatment Time Spent in Patient Care: Greater than 35 minutes Coding Level of Care Code Acute Sweat Box Attendant for Sally Higuera Diagnoses Diverticulitis of large intestine with perforation K57.20 Atrial flutter by electrocardiogram I48.92 Status post placement of cardiac pacemaker Z95.0 Accelerated hypertension I10
--- NOTE | 2022-07-26 13:52 | P.CONIM_ITS ---
Providers/Reason For Consult Consulting Physician/Specialty*: Dr. Pawel Vera, DO/General surgery Reason for Consult*: Diverticulitis Attending Physician: Vishal Dejesus MD Primary Care Provider: Susanne Gutierrez MD History of Present Illness History of Present Illness Joao Hawley is a 86 year old male who presented to the hospital with a 2- day history of left lower quadrant abdominal pain. He has never had this Pain before. The pain is sharp and constant, located in the left lower quadrant. The pain does not radiate. Palpation makes pain worse. Narcotics make the pain better. He has never had diverticulitis before. He denies any nausea or vomiting. Denies fever or chills. Denies diarrhea, constipation, hematochezia and/or melena. His last colonoscopy was 10 years ago. Review of Systems General: Reports: 10 or more systems reviewed and unremarkable except in HPI and below Medications/Allergies Home Medications Medication Instructions Recorded Confirmed Last Taken Type alprazolam 0.25 mg tablet 0.25 mg PO BEDTIME PRN Anxiety 12/03/19 07/26/22 07/25/22 History allopurinol 100 mg tablet 50 mg PO QAM 10/24/21 07/26/22 07/26/22 History tamsulosin 0.4 mg capsule 0.4 mg PO QAM 10/24/21 07/26/22 07/26/22 History colchicine 0.6 mg capsule 0.6 mg PO BID 11/02/21 07/26/22 07/26/22 History (Mitigare) warfarin 4 mg tablet 2 mg PO DAILY 05/09/22 07/26/22 07/26/22 History metoprolol tartrate 25 mg tablet 50 mg PO BID #180 tabs 05/29/22 07/26/22 07/26/22 Rx amlodipine 5 mg tablet 2.5 mg PO DAILY 07/26/22 07/26/22 07/26/22 History Allergies Allergy/AdvReac Type Severity Reaction Status Date / Time Apvuzke-LWS-DkS Reductase AdvReac Severe Myalgia Verified 07/26/22 09:46 Inhibitor Current Medications Generic Name Dose Route Start Last Admin Trade Name Freq PRN Reason Stop Dose Admin Potassium Chloride/Dextrose/Sod Cl 20 meq in 1,000 mls @ 100 mls/hr 07/26/22 11:24 07/26/22 11:58 D5-Ns 0.45% + Kcl 20 Meq IV 100 mls/hr .Q10H GIANA Administration PFSH Acute PFSH: Medical History A-fib Atrial flutter by electrocardiogram Bradycardia COPD (chronic obstructive pulmonary disease) Gout Hyperlipidemia Hypertension Near syncope Surgical History History of appendectomy Previous back surgery Status post placement of cardiac pacemaker Family History Other Family history non-contributory Social History Smoking and tobacco status: former smoker Alcohol intake: current Alcohol intake frequency: few times a month Lives independently: Yes Housing: House Vitals/I&O/Wt Last Vital Signs Temp 97.8 F 07/26/22 11:29 Pulse 69 07/26/22 11:29 Resp 16 07/26/22 11:29 BP 127/75 07/26/22 11:29 Pulse Ox 96 07/26/22 11:29 O2 Del Method 07/26/22 11:29 07/25/22 07/26/22 07/26/22 22:59 06:59 14:59 Intake Total 1050 / 1050 Balance 1050 / 1050 Weight last 48 hrs Weight 200 lb Physical Exam Narrative: General : Patient is well developed , no acute distress, oriented x3 Head : Normal cephalic, a-traumatic. Ears : Pinnae and external canal are normal. Hearing is normal. Eyes : PERRLA, Sclera and injection are normal. No conjunctival discharge. Nose : Mucous membranes are without erythema. Throat : buccal mucosa is normal, gums are without significant recession or hypertrophy. Lungs : Equal chest rise bilaterally, no use of accessory muscles, trachea is m idline. Cor : Rate and rhythm are normal. Abdomen : Soft, ND, tender to palpation left lower quadrant, no g/r/m Extremities : No edema, no cyanosis or clubbing, dorsalis pedis pulses are present bilaterally, non-tender to palpation of calves. Upper extremities are normal bilaterally. Back : non-tender to palpation, no CVA tenderness. Neuro : CN II - XII intact, Upper and lower extremities have equal and full strength Data 07/26/22 07:50 07/26/22 07:50 Micro: Microbiology 07/26/22 08:00 Blood Culture - Preliminary Blood SPECIMEN COLLECTED 07/26/22 08:54 Blood Culture - Preliminary Blood SPECIMEN COLLECTED A&P Assessment and plan (1) Diverticulitis: Plan Radiology read the CT as microperforation. However upon my exam of the images I do not see any evidence of perforation. IV antibiotics for now and he is to complete a 14-day antibiotic course with Augmentin upon discharge N.p.o. IV fluids He will need a colonoscopy in 6 to 8 weeks No acute surgical intervention for now. Medical management per hospitalist Coding Level of Care Code Acute Glue Plant Operator for Sally Higuera Diagnoses Diverticulitis K57.92
[2022-07-26] MEDS: pantoprazole 40 mg SDV IVP (14:34)
[2022-07-26] MEDS: enoxaparin 100 mg/mL Syringe 90 MG SUBCUT (14:34)
[2022-07-26] MEDS: morphine 4 mg/mL SDV 1 mL 1 MG IVP (14:35)
[2022-07-26 15:22] LABS: Procalcitonin 0.11 ng/mL (0-0.5); Thyroid Stimulating Hormone 2.36 uIU/mL (0.27-4.20); Vitamin B12 229 pg/mL (232-1245)
[2022-07-26 15:24] LABS: Folate Level 4.7 ng/mL (4.5-32.2)
[2022-07-26 15:35] LABS: C Reactive Protein 53.1 mg/L (0.0-4.9); Iron 56 ug/dL (59-158); Total Iron Binding Capacity 400 mcg/dl; Unsaturated Iron Binding 344 ug/dL (112-347)
[2022-07-26] MEDS: cyanocobalamin 1,000 mcg/mL SDV 1000 MCG IM (18:03)
--- NOTE | 2022-07-26 18:38 | PC.NURSE ---
Report to Nataliya VICENTE at this time.
[2022-07-27] VITALS (10 sets, daily range): BP systolic 102–151; BP diastolic 52–74; PULSE 65–82; RESP 14–17; TEMP 36.4–36.7; O2SAT 92–97; BMI 28.7
[2022-07-27] MEDS: enoxaparin 100 mg/mL Syringe 90 MG SUBCUT ×2 (01:01→14:23)
[2022-07-27 04:51] LABS: Basophils # 0.1 10^3/uL (0.0-0.1); Basophils % 0.8 %; Eosinophils # 0.4 10^3/uL (0.0-0.8); Eosinophils % 6.3 %; Hematocrit 39.5 % (42.0-52.0); Hemoglobin 12.9 g/dL (11.7-16.6); Lymphocytes # 1.1 10^3/uL (0.8-4.8); Lymphocytes % 16.9 %; Mean Corpuscular HGB Conc 32.7 g/dL (30.0-36.0); Mean Corpuscular Hemoglobin 35.1 pg (28.0-34.0); Mean Corpuscular Volume 107.6 fl (80-94); Mean Platelet Volume 11.4 fL (7.4-10.4); Monocytes # 0.5 10^3/uL (0.2-0.9); Monocytes % 8.1 %; Neutrophils # 4.32 10^3/uL (1.8-7.7); Neutrophils % 67.4 %; Nucleated Red Blood Cells % 0 %; Platelet Count 132 10^3/cmm (130-400); Red Blood Count 3.67 10^6/uL (4.1-5.3); Red Cell Distribution Width 13.9 % (12.1-15.1); White Blood Count 6.4 10^3/uL (4.0-10.0)
[2022-07-27 05:12] LABS: Partial Thromboplastin Time 73.1 SECONDS (23.9-36.7)
[2022-07-27 05:17] LABS: Alanine Aminotransferase 11 U/L (0-41); Alkaline Phosphatase 109 U/L (40-130); Anion Gap 12.1 (5-19); Aspartate Amino Transferase 10 U/L (0-40); Blood Urea Nitrogen 17 mg/dL (8-23); Calcium 8.9 mg/dL (8.5-10.5); Carbon Dioxide 22 mmol/L (22-29); Chloride 104 mmol/L (98-107); Chol HDL Ratio 3.72 mg/dL (1.0-5.00); Cholesterol 145 mg/dL (0-200); Globulin 2.9 g/dL (1.3-4.6); Glucose 108 mg/dL (65-115); HDL Cholesterol 39 mg/dL (60-100); LDL Cholesterol Calculated 80 mg/dL (50-129); Magnesium 1.5 mg/dL (1.7-2.3); Osmolality Calculated 280 mOsm/kg (285-295); Phosphorus 2.7 mg/dL (2.5-4.5); Potassium 4.1 mmol/L (3.5-5.1); Sodium 134 mmol/L (136-145); Total Bilirubin 1.2 mg/dL (0.15-1.2); Triglycerides 131 mg/dL (0-150); VLDL Cholestrol Calculation 26 mg/dL (0-30)
[2022-07-27 05:19] LABS: Estmated Average Glucose 105; Hemoglobin A1C 5.3 % (4.0-6.0)
[2022-07-27 05:52] LABS: Total Protein 5.9 g/dL (6.6-8.7)
[2022-07-27] MEDS: piperacillin-tazobactam 3.375 GM in sodium chloride 0.9% (plus) 50 ML IV ×3 (06:00→23:50)
--- NOTE | 2022-07-27 09:38 | P.PN_ITS ---
Subjective Subjective: Patient seen and examined. He reports that his pain has improved. Denies any nausea or vomiting. Vitals/I&O/Wt Last Vital Signs Temp 97.5 F L 07/27/22 07:52 Pulse 72 07/27/22 08:00 Resp 17 07/27/22 07:52 BP 119/72 07/27/22 07:52 Pulse Ox 97 07/27/22 08:00 O2 Del Method 07/27/22 08:00 07/26/22 07/27/22 07/27/22 22:59 06:59 14:59 Intake Total 870 / 1920 1150 / 3070 Output Total 200 / 200 Balance 670 / 1720 1150 / 2870 Weight last 48 hrs Weight 200 lb Weight 200 lb Physical Exam Narrative: General: No acute distress, awake alert and oriented x3 Abdomen: Soft, nondistended, improved left lower quadrant tenderness, no guarding rebound or masses Data 07/27/22 04:26 07/27/22 04:26 Micro: Microbiology 07/26/22 08:00 Blood Culture - Preliminary Blood NEGATIVE TO DATE 07/26/22 08:54 Blood Culture - Preliminary Blood NEGATIVE TO DATE 07/26/22 08:42 Bacterial Antigens - Final Urine Kidney A&P Assessment and plan (1) Diverticulitis: Plan Radiology read the CT as microperforation. However upon my exam of the images I do not see any evidence of perforation. IV antibiotics for now and he is to complete a 14-day antibiotic course with Augmentin upon discharge Clear liquid diet IV fluids He will need a colonoscopy in 6 to 8 weeks No acute surgical intervention for now. Medical management per hospitalist Attestations Medical Necessity Statement*: Patient requires at least 1 more night in the hospital for IV antibiotics and monitoring of his diverticulitis Coding Level of Care Code Acute Staff Development Nurse for [facility] Davida Diagnoses Diverticulitis K57.92
[2022-07-27] MEDS: D5-NS 0.45% + KCL 20 mEq 20 MEQ/1,000 ML BAG 100 MEQ IV (09:40)
--- NOTE | 2022-07-27 09:52 | PC.CHAP ---
Pastoral Care Encounter/Spiritual Assessment Type of Contact [] Declined editor book visit [] Patient/Family/Request visit [] Outpatient visit [] Follow-up visit [] Physician referral [] Code/Alert [x] Routine visit [] Staff referral [] Actively dying [] Patient sleeping [] Family support [] [] Out of room [] Palliative care [] [] Receiving care in room [] Pre-surgical visit [] Trauma [] Long length of stay [] ICU visit [] Other: Relational/Emotional Strength [] Patient feels connected with others/family/visitors/staff [] Distress [] Loneliness/isolation [] Abandonment Spirituality of Patient [] Person of Whit [] Attends Yarsanism of their Whit [] Believes in Prayer [] Reads Bible or Evangelical materials [x] There are Spiritual issues to be addressed Clinical Engineering Director Interventions [x] Prayer [] Active listening [] Non-anxious presence [] Spiritual/emotional support [] Crisis/trauma care [] Spiritual counseling [] Bereavement support [] Provided bereavement packet [] Provided Bible/devotional materials [] Provided toy/stuffed animal, coloring book to patient or family member [] Provided Communion [] Anointing/[place] [] Salvation [] Completed spiritual assessment [] Other: Impact on Illness or Injury [] Angry [] Fearful [] Anxious [] Often cries [] Exhaustion [] Unable to work [] Unable to attend hoahaoism [] Unable to walk/stand [] Unable to read [] Unable to drive [] Unable to eat/drink [] Unable to sleep [] Unable to be with family [] Patient intubated [] Other: Summary Time spent with patient 5 min
[2022-07-27] MEDS: pantoprazole 40 mg SDV IVP (14:22)
--- NOTE | 2022-07-27 14:58 | P.PN_ITS ---
Subjective Subjective: No acute events overnight. Patient denies any nausea, vomiting, headache. States feeling better. Not having bowel movements yet. Abdominal pain less. But does think abdominal surgery more formed than before. Started on clear liquid diet by surgery and tolerating well. Asking if his home gout medications could be started as soon as possible because usually in within 3 days he starts having acute gout flare. Vitals/I&O/Wt Last Vital Signs Temp 97.6 F 07/27/22 11:58 Pulse 71 07/27/22 14:00 Resp 17 07/27/22 11:58 BP 143/74 07/27/22 11:58 Pulse Ox 94 07/27/22 11:58 O2 Del Method 07/27/22 11:58 07/26/22 07/27/22 07/27/22 22:59 06:59 14:59 Intake Total 870 / 1920 1150 / 3070 410 / 410 Output Total 200 / 200 Balance 670 / 1720 1150 / 2870 410 / 410 Weight last 48 hrs Weight 90.718 kg Weight 90.718 kg Physical Exam Narrative: General: No acute distress, AO x3 HEENT: PERRLA, pupils bilaterally equal and reactive Chest: Normal vesicular breath sounds, no added sounds, equal good air entry bilaterally CVS: S1-S2 regular, no murmurs, no tachycardia, no gallops, no rubs Abdomen: Soft, tenderness in left lower quadrant no organomegaly, bowel sounds sluggish Neuro: No focal deficits, no facial deformity, AO x3, power 5/5 in all limbs Data 07/27/22 04:26 07/27/22 04:26 Micro: Microbiology 07/26/22 14:49 MRSA Culture - Final Nose 07/26/22 08:00 Blood Culture - Preliminary Blood NEGATIVE TO DATE 07/26/22 08:54 Blood Culture - Preliminary Blood NEGATIVE TO DATE 07/26/22 08:42 Bacterial Antigens - Final Urine Kidney A&P Assessment and plan (1) Diverticulitis of large intestine with perforation: As seen on CT scan. Surgery consulted from ER. Advance to clear liquid diet. Decrease IV fluids to 75 cc/h. Zofran as needed, Protonix. Pain control with morphine 1 mg IV every 4 hour as needed. Early ambulation, out of bed to chair. Continue empirically with Zosyn. Stool studies. (2) Atrial flutter by electrocardiogram: Rate controlled. IV metoprolol 5 mg every 4 hours as needed for heart rate of more than 100. Telemetry. Takes Coumadin at home for anticoagulation. Appreciate INR. Switch to Lovenox 1 mg/kg body weight every 12 hourly as per creatinine clearance as patient is n.p.o. (3) Status post placement of cardiac pacemaker: (4) Accelerated hypertension: Goal blood pressure less than 140/90 mmHg. Continue to monitor. Plan Restart home medications including amlodipine, metoprolol, Flomax, colchicine and allopurinol at home dose. Continue to hold off on warfarin for now given possible need of OR. Continue with full dose Lovenox. Full code. Full dose Lovenox will suffice as DVT prophylaxis Protonix for PUD prophylaxis Clear liquid diet. Attestations Medical Necessity Statement*: Requires further hospitalization for management of diverticulitis with microperforation as patient requires IV antibiotics after diet is advanced and bowel functions are awaited Time Spent in Patient Care: Greater than 35 minutes Coding Level of Care Code Acute Corn Husker Machine Operator for Sally Higuera Diagnoses Diverticulitis of large intestine with perforation K57.20 Atrial flutter by electrocardiogram I48.92 Status post placement of cardiac pacemaker Z95.0 Accelerated hypertension I10
[2022-07-27] MEDS: allopurinol 100 mg Tablet 50 MG PO (15:46)
[2022-07-27] MEDS: metoprolol tartrate 50 mg Tablet PO (17:03)
[2022-07-27] MEDS: colchicine 0.6 mg Tablet PO (21:05)
[2022-07-27] MEDS: D5-NS 0.45% + KCL 20 mEq 20 MEQ/1,000 ML BAG 75 MEQ IV (23:19)
[2022-07-28] VITALS (7 sets, daily range): BP systolic 117–168; BP diastolic 64–88; PULSE 70–79; RESP 16–18; TEMP 36.5–37; O2SAT 95–98
[2022-07-28] MEDS: enoxaparin 100 mg/mL Syringe 90 MG SUBCUT ×2 (01:08→14:15)
[2022-07-28] MEDS: ALPRAZolam 0.5 mg Tablet 0.25 MG PO ×2 (02:22→21:48)
[2022-07-28] MEDS: allopurinol 100 mg Tablet 50 MG PO (05:47)
[2022-07-28] MEDS: tamsulosin 0.4 mg Capsule PO (05:47)
--- NOTE | 2022-07-28 07:40 | P.PN_ITS ---
Subjective Subjective: Patient seen and examined. Denies any nausea or vomiting. He is having loose bowel movements. Abdominal pain has improved. He wants to go home. Vitals/I&O/Wt Last Vital Signs Temp 98.5 F 07/28/22 04:10 Pulse 71 07/28/22 05:08 Resp 16 07/28/22 04:10 BP 122/65 07/28/22 04:10 Pulse Ox 97 07/28/22 04:10 O2 Del Method 07/28/22 04:10 07/27/22 07/28/22 07/28/22 22:59 06:59 14:59 Intake Total 1290 / 1700 293.958 / 1993.958 Output Total 225 / 225 Balance 1290 / 1700 68.958 / 1768.958 Weight last 48 hrs Weight 190 lb Weight 200 lb Physical Exam Narrative: General: No acute distress, awake alert and oriented x3 Abdomen soft, moderately distended, improved left lower quadrant tenderness, no guarding rebound or masses Data 07/27/22 04:26 07/27/22 04:26 Micro: Microbiology 07/26/22 14:49 MRSA Culture - Final Nose 07/26/22 08:00 Blood Culture - Preliminary Blood NEGATIVE TO DATE 07/26/22 08:54 Blood Culture - Preliminary Blood NEGATIVE TO DATE A&P Assessment and plan (1) Diverticulitis: Plan Radiology read the CT as microperforation. However upon my exam of the images I do not see any evidence of perforation. IV antibiotics for now and he is to complete a 14-day antibiotic course with Augmentin upon discharge Advance to full liquid diet IV fluids Follow-up with me 2 weeks after discharge He will need a colonoscopy in 6 to 8 weeks No acute surgical intervention for now. Medical management per hospitalist Attestations Medical Necessity Statement*: Patient requires at least 1 more night in the hospital for IV antibiotics and diet management for his acute diverticulitis. Coding Level of Care Code Acute Applications System Analyst for Sally Higuera Diagnoses Diverticulitis K57.92
[2022-07-28] MEDS: amlodipine 5 mg Tablet 2.5 MG PO (08:22)
[2022-07-28] MEDS: metoprolol tartrate 50 mg Tablet PO ×2 (08:23→17:59)
[2022-07-28] MEDS: colchicine 0.6 mg Tablet PO ×2 (08:29→21:48)
--- NOTE | 2022-07-28 12:03 | P.PN_ITS ---
Subjective Subjective: No acute events overnight. Did have 1 large bowel movement overnight. Passing flatus. Still having mild abdominal pain. Diet advanced to full liquid as per surgical team. Vitals/I&O/Wt Last Vital Signs Temp 97.7 F 07/28/22 08:00 Pulse 73 07/28/22 08:00 Resp 17 07/28/22 08:00 BP 168/88 07/28/22 08:00 Pulse Ox 98 07/28/22 08:00 O2 Del Method 07/28/22 08:00 07/27/22 07/28/22 07/28/22 22:59 06:59 14:59 Intake Total 1290 / 1700 293.958 / 1993.958 350 / 350 Output Total 225 / 225 Balance 1290 / 1700 68.958 / 1768.958 350 / 350 Weight last 48 hrs Weight 86.183 kg Weight 90.718 kg Physical Exam Narrative: General: No acute distress, AO x3 HEENT: PERRLA, pupils bilaterally equal and reactive Chest: Normal vesicular breath sounds, no added sounds, equal good air entry bilaterally CVS: S1-S2 regular, no murmurs, no tachycardia, no gallops, no rubs Abdomen: Soft, tenderness in left lower quadrant no organomegaly, bowel sounds sluggish Neuro: No focal deficits, no facial deformity, AO x3, power 5/5 in all limbs Data 07/27/22 04:26 07/27/22 04:26 Micro: Microbiology 07/26/22 14:49 MRSA Culture - Final Nose 07/26/22 08:00 Blood Culture - Preliminary Blood NEGATIVE TO DATE 07/26/22 08:54 Blood Culture - Preliminary Blood NEGATIVE TO DATE A&P Assessment and plan (1) Diverticulitis of large intestine with perforation: As seen on CT scan. Appreciate surgical recommendations. As per surgical read no microperforation present. Advance to full liquid diet. Continue Protonix and Zofran. Stop IV fluids. For a possible colonoscopy as an outpatient after 2 weeks. Early ambulation. Continue with Zosyn for now. We will switch to oral Augmentin post discharge for 2 weeks (2) Atrial flutter by electrocardiogram: Rate controlled. Restarted home dose of metoprolol. Telemetry. Takes Coumadin at home for anticoagulation. Appreciate INR. Switch to Lovenox 1 mg/kg body weight every 12 hourly as per creatinine clearance as patient is n.p.o. (3) Status post placement of cardiac pacemaker: (4) Accelerated hypertension: Goal blood pressure less than 140/90 mmHg. Continue to monitor. Home dose of amlodipine and metoprolol restarted. Will uptitrate medications as per goal. Plan Full code. Full dose Lovenox will suffice as DVT prophylaxis Protonix for PUD prophylaxis : Liquid diet. Attestations Medical Necessity Statement*: Requires further hospitalization for conserva tive treatment of diverticulitis of large intestine with possible microperforation while patient completes IV antibiotic course, await bowel functions properly and is being discharged on oral antibiotic as an outpatient. Time Spent in Patient Care: Greater than 35 minutes Coding Level of Care Code Acute Emergency Specialist for Sally Higuera Diagnoses Diverticulitis of large intestine with perforation K57.20 Atrial flutter by electrocardiogram I48.92 Status post placement of cardiac pacemaker Z95.0 Accelerated hypertension I10
[2022-07-28] MEDS: pantoprazole 40 mg SDV IVP (14:15)
[2022-07-28] MEDS: piperacillin-tazobactam 3.375 GM in sodium chloride 0.9% (plus) 50 ML IV ×2 (14:16→23:01)
[2022-07-29 00:07] VITALS: BP 138/69; PULSE 64; RESP 15; TEMP 36.6; O2SAT 97
[2022-07-29 00:13] VITALS: PULSE 70; O2SAT 97
[2022-07-29] MEDS: enoxaparin 100 mg/mL Syringe 90 MG SUBCUT (01:20)
[2022-07-29 04:28] VITALS: BP 137/68; PULSE 71; RESP 18; TEMP 36.8; O2SAT 97
[2022-07-29] MEDS: allopurinol 100 mg Tablet 50 MG PO (05:46)
[2022-07-29] MEDS: tamsulosin 0.4 mg Capsule PO (05:47)
[2022-07-29 05:57] LABS: Basophils % 0.6 %; Eosinophils # 0.5 10^3/uL (0.0-0.8); Eosinophils % 9.5 %; Hematocrit 40.9 % (42.0-52.0); Hemoglobin 13.1 g/dL (11.7-16.6); Lymphocytes # 1.2 10^3/uL (0.8-4.8); Lymphocytes % 23.9 %; Mean Corpuscular Hemoglobin 34.9 pg (28.0-34.0); Mean Corpuscular Volume 109.1 fl (80-94); Monocytes # 0.5 10^3/uL (0.2-0.9); Monocytes % 9.3 %; Neutrophils # 2.92 10^3/uL (1.8-7.7); Neutrophils % 56.3 %; Nucleated Red Blood Cells % 0 %; Platelet Count 159 10^3/cmm (130-400); Red Blood Count 3.75 10^6/uL (4.1-5.3); Red Cell Distribution Width 13.5 % (12.1-15.1); White Blood Count 5.2 10^3/uL (4.0-10.0)
[2022-07-29 06:28] LABS: Alanine Aminotransferase 15 U/L (0-41); Albumin Level 3.3 g/dL (3.5-5.2); Alkaline Phosphatase 116 U/L (40-130); Aspartate Amino Transferase 18 U/L (0-40); Blood Urea Nitrogen 8 mg/dL (8-23); Calcium 8.7 mg/dL (8.5-10.5); Carbon Dioxide 21 mmol/L (22-29); Globulin 2.8 g/dL (1.3-4.6); Glucose 84 mg/dL (65-115); Total Bilirubin 0.8 mg/dL (0.15-1.2); Total Protein 6.1 g/dL (6.6-8.7)
[2022-07-29] MEDS: piperacillin-tazobactam 3.375 GM in sodium chloride 0.9% (plus) 50 ML IV (06:37)
[2022-07-29 07:02] LABS: Anion Gap 13.9 (5-19); Chloride 107 mmol/L (98-107); Osmolality Calculated 284 mOsm/kg (285-295); Potassium 3.9 mmol/L (3.5-5.1); Sodium 138 mmol/L (136-145)
[2022-07-29 08:00] VITALS: BP 146/85; PULSE 69; PULSE 71; RESP 18; TEMP 36.6; O2SAT 97
[2022-07-29] MEDS: amlodipine 5 mg Tablet 2.5 MG PO (08:28)
[2022-07-29] MEDS: metoprolol tartrate 50 mg Tablet PO (08:28)
[2022-07-29] MEDS: colchicine 0.6 mg Tablet PO (08:29)
--- NOTE | 2022-07-29 09:32 | PC.SOCIAL ---
IMM update IMM updated with patient. Verbalized an understanding. Copy Pg 2 provided. Initialled, dated, timed, and placed in chart.
--- NOTE | 2022-07-29 10:09 | P.DS_ITS ---
Discharge Providers Date of Admission: 07/26/22 11:24 Date of Discharge: July 29, 2022 Attending Provider at Admission: Vishal Dejesus MD Attending Provider at Discharge: Vishal Dejesus MD Consults: Surgery: Dr. Vera Primary Care Provider: Susanne Gutierrez MD Diagnoses at Discharge Discharge Diagnosis (1) Diverticulitis of large intestine with perforation: Status: Acute (2) Atrial flutter by electrocardiogram: Status: Acute (3) Status post placement of cardiac pacemaker: Status: Acute (4) Accelerated hypertension: Status: Acute Reason for Visit Reason for Visit: Lower abd pain Hospital Course Hospital Course Joao Hawley is a 86 year old male with past medical history of atrial fibrillation on chronic anticoagulation with Coumadin, pacemaker implantation, hypertension, gout who presented to the ER today because of worsening abdominal pain in the left lower quadrant since Saturday.? Today is .? As per patient his last bowel movement was Saturday afternoon after which he started having worsening abdominal pain.? He complains of nausea without any vomiting.? His last colonoscopy was more than 10 years ago at [place] in which she was found to have few polyps.? Patient denies of having any fevers, dysuria, hematemesis, melena. Patient admitted to hospital further evaluation and management with concerns for microperforation in setting of diverticulitis. Started on empiric antibiotics. Surgery was consulted and was treated conservatively. Eventually diet was advanced and is able to tolerate full liquid diet for last 48 hours. His hospitalization remained unremarkable. He was discharged on oral full liquid diet for next 3 to 4 days with advised to advance gradually. He is to take Augmentin daily 2 times for next 10 days. He is to follow-up with surgery as an outpatient within next 2 weeks for a colonoscopy. Physical Exam Narrative: General: No acute distress, AO x3 HEENT: PERRLA, pupils bilaterally equal and reactive Chest: Normal vesicular breath sounds, no added sounds, equal good air entry bilaterally CVS: S1-S2 regular, no murmurs, no tachycardia, no gallops, no rubs Abdomen: Soft, tenderness in left lower quadrant no organomegaly, bowel sounds sluggish Neuro: No focal deficits, no facial deformity, AO x3, power 5/5 in all limbs Discharge Data Studies Completed and Pending Completed Studies During Hospitalization Category Date Time Status CT abdomen pelvis w con* [id number] Stat Cat Scan 07/26/22 07:40 Completed XR chest 1V portable [id number] Stat Exams 07/26/22 07:41 Completed Pending at discharge Category Date Time Status Blood Culture Stat Lab 07/26/22 08:00 Results Radiology Impressions Abdomen/Pelvis CT 07/26/22 07:40 IMPRESSION: 1. Inflammatory stranding and edema involving the sigmoid colon LEFT lower quadrant anteriorly compatible with acute diverticulitis. A few associated tiny locules of associated air compatible with microperforation. No drainable abscess or drainable fluid collection. 2. Cholelithiasis. 3. Bilateral renal cysts similar in appearance to August 24, 2021. 4. Prominent prostate measuring 4.7 CM. Recommend correlation PSA. 5. Small esophageal hiatal hernia. 6. No other acute findings. Notified Moises Maza DO at 07/26/2022 9:09 AM. Chest X-Ray 07/26/22 07:41 Impression: Atherosclerosis and cardiac pacemaker. Laboratory Results WBC 5.2 10^3/uL (4.0-10.0) 07/29/22 05:24 RBC 3.75 10^6/uL (4.1-5.3) L 07/29/22 05:24 Hgb 13.1 g/dL (11.7-16.6) 07/29/22 05:24 Hct 40.9 % (42.0-52.0) L 07/29/22 05:24 MCV 109.1 fl (80-94) H 07/29/22 05:24 MCH 34.9 pg (28.0-34.0) H 07/29/22 05:24 MCHC 32.0 g/dL (30.0-36.0) 07/29/22 05:24 RDW 13.5 % (12.1-15.1) 07/29/22 05:24 Plt Count 159 10^3/cmm (130-400) 07/29/22 05:24 MPV 11.0 fL (7.4-10.4) H 07/29/22 05:24 Neut % (Auto) 56.3 % 07/29/22 05:24 Lymph % (Auto) 23.9 % 07/29/22 05:24 [place] % (Auto) 9.3 % 07/29/22 05:24 Eos % (Auto) 9.5 % 07/29/22 05:24 Baso % (Auto) 0.6 % 07/29/22 05:24 Neut # (Auto) 2.92 10^3/uL (1.8-7.7) 07/29/22 05:24 Lymph # (Auto) 1.2 10^3/uL (0.8-4.8) 07/29/22 05:24 [place] # (Auto) 0.5 10^3/uL (0.2-0.9) 07/29/22 05:24 Eos # (Auto) 0.5 10^3/uL (0.0-0.8) 07/29/22 05:24 Baso # (Auto) 0.0 10^3/uL (0.0-0.1) 07/29/22 05:24 Nucleated RBC % (auto) 0 % 07/29/22 05:24 Nucleated RBCs # 0.0 /100WBC 07/29/22 05:24 PT 21.10 SECONDS (12.1-14.9) H 07/26/22 08:00 INR 1.78 (0.8-1.2) H 07/26/22 08:00 APTT 73.1 SECONDS (23.9-36.7) H D 07/27/22 04:26 Sodium 138 mmol/L (136-145) 07/29/22 05:24 Potassium 3.9 mmol/L (3.5-5.1) 07/29/22 05:24 Chloride 107 mmol/L (98-107) 07/29/22 05:24 Carbon Dioxide 21 mmol/L (22-29) L 07/29/22 05:24 Anion Gap 13.9 (5-19) 07/29/22 05:24 BUN 8 mg/dL (8-23) 07/29/22 05:24 Creatinine 1.2 mg/dL (0.7-1.2) 07/29/22 05:24 GFR Calculation Not Reportable 07/29/22 05:24 Glucose 84 mg/dL (65-115) 07/29/22 05:24 Estimat Average Glucose 105 07/27/22 04:26 Hemoglobin A1c 5.3 % (4.0-6.0) 07/27/22 04:26 Calculated Osmolality 284 mOsm/kg (285-295) L 07/29/22 05:24 Calcium 8.7 mg/dL (8.5-10.5) 07/29/22 05:24 Phosphorus 2.7 mg/dL (2.5-4.5) 07/27/22 04:26 Magnesium 1.5 mg/dL (1.7-2.3) L 07/27/22 04:26 Iron 56 ug/dL (59-158) L 07/26/22 07:50 TIBC 400 mcg/dl 07/26/22 07:50 % Saturation 14.0 % (20-50) L 07/26/22 07:50 Unsat Iron Binding 344 ug/dL (112-347) 07/26/22 07:50 Total Bilirubin 0.8 mg/dL (0.15-1.2) 07/29/22 05:24 AST 18 U/L (0-40) 07/29/22 05:24 ALT 15 U/L (0-41) 07/29/22 05:24 Alkaline Phosphatase 116 U/L (40-130) 07/29/22 05:24 C-Reactive Protein 53.1 mg/L (0.0-4.9) H 07/26/22 07:50 Total Protein 6.1 g/dL (6.6-8.7) L 07/29/22 05:24 Albumin 3.3 g/dL (3.5-5.2) L 07/29/22 05:24 Globulin 2.8 g/dL (1.3-4.6) 07/29/22 05:24 Triglycerides 131 mg/dL (0-150) 07/27/22 04:26 Cholesterol 145 mg/dL (0-200) 07/27/22 04:26 LDL Cholesterol, Calc 80 mg/dL (50-129) 07/27/22 04:26 Total VLDL Cholesterol 26 mg/dL (0-30) 07/27/22 04:26 HDL Cholesterol 39 mg/dL (60-100) L 07/27/22 04:26 Cholesterol/HDL Ratio 3.72 mg/dL (1.0-5.00) 07/27/22 04:26 Vitamin B12 229 pg/mL (232-1245) L 07/26/22 07:50 Folate 4.7 ng/mL (4.5-32.2) 07/26/22 07:50 Procalcitonin 0.11 ng/mL (0-0.5) 07/26/22 07:50 TSH 2.36 uIU/mL (0.27-4.20) 07/26/22 07:50 Urine Color Dark yellow (Yellow) 07/26/22 08:42 Urine Appearance Clear (CLEAR) 07/26/22 08:42 Urine pH 5 (5-7) 07/26/22 08:42 Ur Specific [place] 1.020 (1.005-1.030) 07/26/22 08:42 Urine Protein 1+ (Negative) H 07/26/22 08:42 Urine Glucose (UA) Norm (Normal) 07/26/22 08:42 Urine Ketones Negative (Negative) 07/26/22 08:42 Urine Blood Neg (Negative) 07/26/22 08:42 Urine Nitrate Negative (Negative) 07/26/22 08:42 Urine Bilirubin 1+ (Negative) H 07/26/22 08:42 Urine Urobilinogen Norm mg/dL (Negative) 07/26/22 08:42 Ur Leukocyte Esterase Negative (Negative) 07/26/22 08:42 Urine RBC 0-4 /hpf (0-2) H 07/26/22 08:42 Urine WBC 0-4 /hpf (0-5) H 07/26/22 08:42 Ur Squamous Epith Cells 0-4 /hpf (0-5) H 07/26/22 08:42 Amorphous Sediment Not Reportable 07/26/22 08:42 Urine Bacteria Trace /hpf (NONE) 07/26/22 08:42 Hyaline Casts Rare /lpf 07/26/22 08:42 Urine Mucus 1+ /hpf 07/26/22 08:42 Vitals Last Vital Signs Temp 98 F 07/29/22 08:00 Pulse 69 07/29/22 08:00 Resp 18 07/29/22 08:00 BP 146/85 07/29/22 08:00 Pulse Ox 97 07/29/22 08:00 O2 Del Method 07/29/22 08:00 Discharge Plan Discharge Patient Disposition: Home Condition: Stable Prescriptions: New Augmentin XR 1,000-62.5 mg tablet extended release 12 hr 1 tab PO BID 7 Days Qty: 14 0RF Continued alprazolam 0.25 mg tablet 0.25 mg PO BEDTIME PRN (Reason: Anxiety) colchicine [Mitigare] 0.6 mg capsule 0.6 mg PO BID warfarin 4 mg tablet 2 mg PO DAILY Rx Instructions: managed by Dr Alexander metoprolol tartrate 25 mg tablet 50 mg PO BID Qty: 180 3RF allopurinol 100 mg tablet 50 mg PO QAM tamsulosin 0.4 mg capsule 0.4 mg PO QAM amlodipine 5 mg tablet 2.5 mg PO DAILY Discharge Orders: Discharge Order (Routine); Ordered 07/29/22 Ordered By: Vishal Dejesus Referrals: Pawel Vera DO [Physician] - 2 weeks (Please call tomorrow morning to schedule a hospital follow up within 2 weeks. ) Susanne Gutierrez MD [Primary Care Provider] - 1 week (Please call SaturdayJul.30 to schedule a hospital follow up appointment.) Discharge Diet: Advance as tolerated and Full LIquid Discharge Activity: Resume usual activity Patient Instructions: Amoxicillin/Clavulanate Potassium (By mouth), Diverticulitis (GEN), Opioid Safety, GI (Gastrointestinal) Soft Diet (DC) Activity Restrictions/Additional Instructions: Please continue taking full liquid diet for next 2 to 4 days and advance gradually to brat/soft diet and eventually to a regular diet within the next 10 days. Continue taking Augmentin which is the antibiotic for next 1 week. Please follow-up with surgery in 2 weeks for further evaluation and management with a colonoscopy. Discharge Attestations Time Spent in Discharge Care*: greater than 30 min Specific Discharge Activities: educating patient, discussing with pcp/other providers, discussing with adult protective caseworker/social workers/dc planners, documenting/other paperwork and evaluating patient/reviewing data Status at Discharge: Cognitive status at discharge: cognitively intact , Behavioral status at discharge: cooperative , Functional status at discharge: independent ambulation , Overall status at discharge: patient is back to baseline Quality Metrics Clinical Quality Measures [ No reported AMI, CVA or VTE this stay] Coding Level of Care Code Acute Chg FW DC note Diagnoses Diverticulitis of large intestine with perforation K57.20 Atrial flutter by electrocardiogram I48.92 Status post placement of cardiac pacemaker Z95.0 Accelerated hypertension I10
[2022-07-29 11:55] VITALS: BP 146/85; PULSE 69; RESP 18; TEMP 36.6; O2SAT 97
[2022-07-29 12:00] VITALS: BP 162/83; PULSE 79; RESP 16; TEMP 36.4; O2SAT 97
--- NOTE | 2022-07-29 13:20 | PM.PN ---
Subjective Subjective: Patient reports that his abdominal pain is much improved. Denies any nausea or vomiting. Tolerating full liquids. Vitals/I&O/Wt Last Vital Signs Temp 97.5 F L 07/29/22 12:00 Pulse 79 07/29/22 12:00 Resp 16 07/29/22 12:00 BP 162/83 07/29/22 12:00 Pulse Ox 97 07/29/22 12:00 O2 Del Method 07/29/22 08:00 07/28/22 07/29/22 07/29/22 22:59 06:59 14:59 Intake Total 290 / 990 50 / 1040 530 / 530 Output Total 250 / 475 Balance 40 / 515 50 / 565 530 / 530 Weight last 48 hrs Weight 190 lb Physical Exam Narrative: General: No acute distress, awake alert and oriented x3 Abdomen soft, moderately distended, improved left lower quadrant tenderness, no guarding rebound or masses Data 07/29/22 05:24 07/29/22 05:24 A&P Assessment and plan (1) Diverticulitis: Plan Radiology read the CT as microperforation. However upon my exam of the images I do not see any evidence of perforation. IV antibiotics for now and he is to complete a 14-day antibiotic course with Augmentin upon discharge Advance to soft diet Follow-up with me 2 weeks after discharge He will need a colonoscopy in 6 to 8 weeks No acute surgical intervention for now. Surgically stable for discharge Medical management per hospitalist Attestations Medical Necessity Statement*: Further hospitalization per hospitalist Coding Level of Care Code Acute Insurance Risk Surveyor for Sally Higuera Diagnoses Diverticulitis K57.92
== END 2022-07-29 14:10 | disposition home or self-care (01) | DRG 392 ==
LOC: ER 09:45 → MEDSURG 10:34
PROVIDERS: Admitting Provider Student in an Organized Health Care Education/Training Program; Emergency Provider Family Medicine; PCP Family Medicine; Visit Provider Student in an Organized Health Care Education/Training Program
DX: K57.20 Diverticulitis of large intestine with perforation and abscess without bleeding (principal); I48.92 Unspecified atrial flutter; I48.91 Unspecified atrial fibrillation; I10 Essential (primary) hypertension; J44.9 Chronic obstructive pulmonary disease, unspecified; M10.9 Gout, unspecified; E78.5 Hyperlipidemia, unspecified; Z95.0 Presence of cardiac pacemaker; Z79.01 Long term (current) use of anticoagulants; Z86.010 Personal history of colon polyps; Z87.891 Personal history of nicotine dependence
CPT/HCPCS: 36415; 71045; 74177; 80053; 80061; 81001; 82607; 82746; 83036; 83540; 83550; 83735; 84100; 84145; 84443; 85025; 85610; 85730; 86140; 86403; 87040; 87641; 93005; 96365; 96372; 96375; 99285; C9113; J1650; J2270; J2405; J2543; J3420; J7030; Q9967

== ENCOUNTER → 2022-08-03 10:27 | Outpatient (BNVA) | payer MEDICARE, OTHER, SELFPAY | PROVIDERS: PCP Family Medicine; Visit Provider Internal Medicine Cardiovascular Disease | DX: Z45.010 Encounter for checking and testing of cardiac pacemaker pulse generator [battery] (principal) | CPT/HCPCS: 93279 ==

== ENCOUNTER → 2022-08-14 09:00 | Outpatient (BNVA) | payer MEDICARE, OTHER, SELFPAY | PROVIDERS: PCP Family Medicine; Visit Provider Surgery | DX: Z09 Encounter for follow-up examination after completed treatment for conditions other than malignant neoplasm (principal); K57.92 Diverticulitis of intestine, part unspecified, without perforation or abscess without bleeding | CPT/HCPCS: 99203; 99213 ==

== ENCOUNTER → 2022-11-14 09:50 | Outpatient (BNVA) | payer MEDICARE, OTHER, SELFPAY | PROVIDERS: PCP Family Medicine; Visit Provider Internal Medicine Cardiovascular Disease | DX: Z13.6 Encounter for screening for cardiovascular disorders (principal); Z87.891 Personal history of nicotine dependence; I48.92 Unspecified atrial flutter; E78.5 Hyperlipidemia, unspecified; Z95.0 Presence of cardiac pacemaker; I10 Essential (primary) hypertension; Z79.01 Long term (current) use of anticoagulants | CPT/HCPCS: 99214 ==

== ENCOUNTER 2022-12-06 12:02 | Outpatient (CLI) | payer MEDICARE, OTHER, SELFPAY ==
--- NOTE | 2022-12-06 12:30 | USCV_ITS ---
HawleyJoao powell Age: 87 Gender: M : 1935 Exam Date: 12/06/2022 13:14 Ordering Phys: Abdiel Mtz MD ([email or web address]) Technologist: BM [place] [facility] [place] AAA Screening HISTORY: Diameter (cm) AP x Transverse x Length Velocity (cm/s) Waveform Prox Aorta: 1.58 x 1.69 x 56.10 Mid Aorta: 1.65 x 1.78 x 54.30 Distal Aorta: 1.46 x 1.73 x 47.70 Right Iliac Prox: 0.73 x 0.95 x 117.10 Left Iliac Prox: 0.69 x 1.11 x 116.00 Stent Prox Landing x x Aneurysmal Sac Max x x Lt Lat Sac Dim Rt Lat Sac Dim Stent Dist Landing x x Right Iliac Stent x x Left Iliac Stent x x Right Renal Art Left Renal Art FINDINGS: CONCLUSIONS No evidence of abdominal aortic or bilateral iliac aneurysm. Hong Hughes MD (Electronically Signed) Final Date: 06 Dec 2022 13:40 S
== END 2022-12-06 12:03 | disposition home or self-care (01) ==
LOC: RAD 12:10
PROVIDERS: PCP Family Medicine; Visit Provider Internal Medicine Cardiovascular Disease
DX: Z13.6 Encounter for screening for cardiovascular disorders (principal); Z87.891 Personal history of nicotine dependence; Z84.89 Family history of other specified conditions
CPT/HCPCS: 93978

== ENCOUNTER → 2023-05-09 16:26 | Outpatient (BNVA) | payer MEDICARE, OTHER, SELFPAY | PROVIDERS: PCP Family Medicine; Visit Provider Internal Medicine Cardiovascular Disease | DX: Z45.010 Encounter for checking and testing of cardiac pacemaker pulse generator [battery] (principal) | CPT/HCPCS: 93296 ==

== ENCOUNTER → 2023-05-16 13:44 | Outpatient (BNVA) | payer MEDICARE, OTHER, SELFPAY | PROVIDERS: PCP Family Medicine; Visit Provider Internal Medicine Cardiovascular Disease | DX: I48.92 Unspecified atrial flutter (principal); E78.5 Hyperlipidemia, unspecified; Z95.0 Presence of cardiac pacemaker; I10 Essential (primary) hypertension; Z87.891 Personal history of nicotine dependence; Z79.01 Long term (current) use of anticoagulants | CPT/HCPCS: 99214 ==

== ENCOUNTER → 2023-08-14 11:21 | Outpatient (BNVA) | payer MEDICARE, OTHER, SELFPAY | PROVIDERS: PCP Family Medicine; Visit Provider Internal Medicine Cardiovascular Disease | DX: Z45.010 Encounter for checking and testing of cardiac pacemaker pulse generator [battery] (principal) | CPT/HCPCS: 93296 ==

== ENCOUNTER → 2023-12-11 15:12 | Outpatient (BNVA) | payer MEDICARE, OTHER, SELFPAY | PROVIDERS: PCP Family Medicine; Visit Provider Internal Medicine Cardiovascular Disease | DX: I48.92 Unspecified atrial flutter (principal); I10 Essential (primary) hypertension; Z95.0 Presence of cardiac pacemaker; E78.5 Hyperlipidemia, unspecified; Z87.891 Personal history of nicotine dependence; Z79.01 Long term (current) use of anticoagulants | CPT/HCPCS: 99214 ==

== ENCOUNTER → 2024-06-18 09:33 | Outpatient (BNVA) | payer MEDICARE, OTHER, SELFPAY | PROVIDERS: PCP Family Medicine; Visit Provider Internal Medicine Cardiovascular Disease | DX: I48.92 Unspecified atrial flutter (principal); E78.5 Hyperlipidemia, unspecified; I10 Essential (primary) hypertension; Z95.0 Presence of cardiac pacemaker; I48.91 Unspecified atrial fibrillation; Z87.891 Personal history of nicotine dependence; Z79.01 Long term (current) use of anticoagulants | CPT/HCPCS: 36415; 80048; 83735; 99214 ==

== ENCOUNTER → 2025-02-10 17:49 | Outpatient (BNVA) | payer MEDICARE, OTHER, SELFPAY | PROVIDERS: PCP Family Medicine; Visit Provider Internal Medicine Cardiovascular Disease | DX: Z45.018 Encounter for adjustment and management of other part of cardiac pacemaker (principal) | CPT/HCPCS: 93296 ==

== ENCOUNTER → 2025-04-29 10:28 | Outpatient (BNVA) | payer MEDICARE, OTHER, SELFPAY | PROVIDERS: PCP Family Medicine; Visit Provider Internal Medicine Cardiovascular Disease | DX: M79.605 Pain in left leg (principal); M79.604 Pain in right leg; I48.92 Unspecified atrial flutter; Z79.01 Long term (current) use of anticoagulants; E78.5 Hyperlipidemia, unspecified; I10 Essential (primary) hypertension; Z95.0 Presence of cardiac pacemaker; Z87.891 Personal history of nicotine dependence; I73.9 Peripheral vascular disease, unspecified | CPT/HCPCS: 99214 ==

== ENCOUNTER 2025-05-12 09:34 | Outpatient (CLI) | payer MEDICARE, OTHER, SELFPAY ==
--- NOTE | 2025-05-12 09:45 | USR_ITS ---
PROCEDURE INFORMATION: Exam: US Duplex Bilateral Lower Extremity Arteries Exam date and time: 05/12/2025 10:40 AM Age: 89 years old Clinical indication: Pain; Leg, lower; Bilateral; Prior surgery; Surgery date: 6+ months; Surgery type: Bilat knee replacement; Additional info: Bilateral leg pain/ claudication, please call me once it is done TECHNIQUE: Imaging protocol: Real-time ultrasound scan of the arteries of the bilateral lower extremities with 2-D singh scale, color Doppler flow and spectral waveform analysis. Images documented and saved. COMPARISON: CT abdomen pelvis w con* [id number] 07/26/2022 8:36 AM FINDINGS: Right common femoral artery: No occlusion. Normal waveform. Peak systolic velocity 46 cm/sec. Right superficial femoral artery: No occlusion. Normal waveform. Peak systolic velocity 17-29 cm/sec. Right popliteal artery: No occlusion. Normal waveform. Peak systolic velocity 19 cm/sec. Right calf/foot arteries: No occlusion or significant stenosis in the visualized arteries. Monophasic waveforms with mild spectral broadening. Dorsalis pedis artery is patent. Posterior tibial and dorsalis pedis artery is noncompressible. Left common femoral artery: No occlusion or significant stenosis. Normal waveform. Peak systolic velocity 84 cm/sec. Left superficial femoral artery: No occlusion or significant stenosis. Normal waveform. Peak systolic velocity 59-199 cm/sec. Left popliteal artery: No occlusion or significant stenosis. Normal waveform. Peak systolic velocity 95 cm/sec. Left calf/foot arteries: No occlusion in the visualized arteries. Monophasic waveforms with mild spectral broadening. Dorsalis pedis artery is patent. Posterior tibial and dorsalis pedis arteries noncompressible. US/CV arterial duplex [facility] [id number] IMPRESSION: 1. Decreased peak systolic velocity in the right common femoral, superficial femoral, and popliteal arteries may indicate upstream stenosis. 2. Monophasic waveforms with mild spectral broadening in bilateral infrapopliteal arteries compatible with a least moderate stenosis. 3. Bilateral posterior tibial and dorsalis pedis arteries are noncompressible, commonly seen with arteriosclerotic calcifications.
== END 2025-05-12 09:35 | disposition home or self-care (01) ==
LOC: RAD 09:35
PROVIDERS: PCP Family Medicine; Visit Provider Internal Medicine Cardiovascular Disease
DX: I77.9 Disorder of arteries and arterioles, unspecified (principal)
CPT/HCPCS: 93925